=== PATIENT | male | born 1955 | race Caucasian/White ===

== ENCOUNTER 2017-02-16 09:17 | Emergency (ER) | payer MEDICARE, OTHER ==
[2017-02-16 09:23] VITALS: RESP 16
[2017-02-16] MEDS ORDERED: KETOROLAC 60 MG/2 ML VIAL IM STA (09:31)
--- NOTE | 2017-02-16 09:33 | ED ---
General Adult HPI - General Chief complaint: Back Pain/Injury Stated complaint: BACK PAIN Time Seen by Provider: 02/16/17 09:25 Source: patient, RN notes reviewed Mode of arrival: ambulatory Limitations: no limitations - History of Present Illness Initial comments: Patient is a 61-year-old male who presents emergency room today with chief complaint of right-sided back pain times one week. Does admit that he week ago with this pain. States is worse with certain movements. His examples of when he puts his hands into his pocket and goes pull his arm back down he feels pain right side just below the shoulder blade. Patient does admit that he tries to pull his pants off he again feels this pain. He states he does not feel it he is resting comfortably are not making the certain movements. Patient denies any other complaints or associated symptoms. Patient denies any recent fever, chills, shortness of breath, chest pain, back pain, abdominal pain, nausea or vomiting, numbness or tingling, dysuria or hematuria, constipation or diarrhea, headaches or visual changes, or any other complaints. - Related Data Home Medications Medication Instructions Recorded Confirmed OLANZapine 15 mg PO HS 04/07/15 02/16/17 Simvastatin [Zocor] 20 mg PO QAM 04/07/15 02/16/17 amLODIPine [Norvasc] 10 mg PO QAM 04/07/15 02/16/17 Sertraline HCl [Zoloft] 50 mg PO HS 06/14/16 02/16/17 Cyclobenzaprine [Flexeril] 10 mg PO HS 02/16/17 02/16/17 Lisinopril-Hctz 20-12.5 mg 1 tab PO DAILY 02/16/17 02/16/17 [Zestoretic 20-12.5] Previous Rx's Medication Instructions Recorded Baclofen 10 mg PO TID #20 tab 02/16/17 Ibuprofen [Motrin] 600 mg PO Q6HR PRN #40 day 02/16/17 Allergies Allergy/AdvReac Type Severity Reaction Status Date / Time No Known Allergies Allergy Verified 02/16/17 10:14 Review of Systems ROS Statement: Those systems with pertinent positive or pertinent negative responses have been documented in the HPI. ROS Other: All systems not noted in ROS Statement are negative. Past Medical History Past Medical History: COPD, Hyperlipidemia, Hypertension, Osteoarthritis (OA) History of Any Multi-Drug Resistant Organisms: None Reported Past Surgical History: Orthopedic Surgery Past Anesthesia/Blood Transfusion Reactions: No Reported Reaction Past Psychological History: Schizophrenia Smoking Status: Current every day smoker Past Alcohol Use History: Heavy Past Drug Use History: None Reported - Past Family History Mother Family Medical History: Deep Vein Thrombosis (DVT) General Exam - General Exam Comments Initial Comments: General: The patient is awake and alert, in no distress, and does not appear acutely ill. Eye: Pupils are equal, round and reactive to light, extra-ocular movements are intact. No nystagmus. There is normal conjunctiva bilaterally. No signs of icterus. Ears, nose, mouth and throat: There are moist mucous membranes and no oral lesions. Neck: The neck is supple, there is no tenderness or JVD. Cardiovascular: There is a regular rate and rhythm. No murmur, rub or gallop is appreciated. Respiratory: Lungs are clear to auscultation, respirations are non-labored, breath sounds are equal. No wheezes, stridor, rales, or rhonchi. Gastrointestinal: Soft, non-distended, non-tender abdomen without masses or organomegaly noted. There is no rebound or guarding present. No CVA tenderness. Bowel sounds are unremarkable. Musculoskeletal: Normal ROM. Normal appearance of cervical, thoracic, lumbar spine. No step-offs forms appreciated. No tenderness of the spinous processes. No tenderness to the ribs or posterior shoulder. Pain reproduced with certain movements of: Shoulders posteriorly. Strength 5/5. Sensation intact. Pulses equal bilaterally 2+. Neurological: A&O x 3. CN II-XII intact, There are no obvious motor or sensory deficits. Coordination appears grossly intact. Speech is normal. Skin: Skin is warm and dry and no rashes or lesions are noted. Psychiatric: Cooperative, appropriate mood & affect, normal judgment. Limitations: no limitations Course Vital Signs 02/16/17 09:19 Temperature 97.1 F L Pulse Rate 80 Respiratory 16 Rate Blood Pressure 129/83 O2 Sat by Pulse 98 Oximetry Medical Decision Making - Medical Decision Making Patient reexamined at this time shows no signs of stress. Does admit that he is feeling better after Toradol shot here in emergency room. His pain is reproduced with certain movements. His x-ray is unremarkable. Patient will be discharged home with anti-inflammatories and muscle relaxer. He is advised follow-up with his family doctor next 2 days. Advised return if any symptoms increase or worsen. Patient states understanding and is in agreement. Disposition Clinical Impression: Back pain Disposition: HOME SELF-CARE Condition: Good Instructions: Acute Low Back Pain (ED) Additional Instructions: Please use medication as discussed. Please follow-up with family doctor in the next 2 days. Please return to emergency room if the symptoms increase or worsen or for any other concerns. Prescriptions: Baclofen 10 mg PO TID #20 tab Ibuprofen [Motrin] 600 mg PO Q6HR PRN #40 day PRN Reason: Pain Time of Disposition: 10:47
--- NOTE | 2017-02-16 10:15 | XR ---
EXAMINATION TYPE: XR chest 2V DATE OF EXAM: 02/16/2017 10:10 AM COMPARISON: NONE TECHNIQUE: PA and lateral views submitted. HISTORY: Right scapular and back pain FINDINGS: The lungs are clear and there is no pneumothorax, pleural effusion, or focal pneumonia. Mild hypert rophic change of the spine. IMPRESSION: 1. No acute process.
[2017-02-16 11:06] VITALS: BP 132/88; PULSE 67; TEMP 97.2
== END 2017-02-16 11:05 | disposition home or self-care (01) ==
LOC: EC 09:17
DX: M54.9 Dorsalgia, unspecified (principal); M25.511 Pain in right shoulder; M25.512 Pain in left shoulder; I10 Essential (primary) hypertension; F17.200 Nicotine dependence, unspecified, uncomplicated; F20.9 Schizophrenia, unspecified; E78.5 Hyperlipidemia, unspecified; Z79.899 Other long term (current) drug therapy
CPT/HCPCS: 99283 ×2; 96372 ×2; 71020; J1885

== ENCOUNTER 2017-03-21 08:38 | Emergency (ER) | payer MEDICARE, OTHER ==
[2017-03-21] MEDS ORDERED: ORPHENADRINE 30 MG/ML 2 ML VIAL IM STA (09:05)
[2017-03-21] MEDS ORDERED: KETOROLAC 60 MG/2 ML VIAL IM STA (09:05)
--- NOTE | 2017-03-21 09:08 | ED ---
Back Pain HPI - General Chief Complaint: Back Pain/Injury Stated Complaint: UPPER NECK PAIN Time Seen by Provider: 03/21/17 08:50 Source: patient, RN notes reviewed Limitations: no limitations - History of Present Illness Initial Comments: This is a 61-year-old male who presents with complaints of right-sided back and shoulder pain. 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 He states the pain is severe and gets increased with point his right arm back and certain movements. He does deny any fevers chills nausea vomiting sweats cough or phlegm production. He does not recall any discrete injury. He points to his lower medial shoulder blade area on the right. He is right-hand dominant. MD Complaint: back pain, back injury - Related Data Home Medications Medication Instructions Recorded Confirmed OLANZapine 15 mg PO HS 04/07/15 03/21/17 Simvastatin [Zocor] 20 mg PO QAM 04/07/15 03/21/17 amLODIPine [Norvasc] 10 mg PO QAM 04/07/15 03/21/17 Sertraline HCl [Zoloft] 50 mg PO HS 06/14/16 03/21/17 Cyclobenzaprine [Flexeril] 10 mg PO HS 02/16/17 03/21/17 Lisinopril/Hydrochlorothiazide 1 tab PO DAILY 03/21/17 03/21/17 [Zestoretic 20-25 mg Tablet] Previous Rx's Medication Instructions Recorded Ibuprofen [Motrin] 600 mg PO Q6HR PRN #40 day 02/16/17 Cyclobenzaprine [Flexeril] 10 mg PO TID #14 tab 03/21/17 Ibuprofen [Motrin] 800 mg PO Q6HR PRN #20 tab 03/21/17 Allergies Allergy/AdvReac Type Severity Reaction Status Date / Time No Known Allergies Allergy Verified 03/21/17 08:57 Review of Systems ROS Statement: Those systems with pertinent positive or pertinent negative responses have been documented in the HPI. ROS Other: All systems not noted in ROS Statement are negative. Past Medical History Past Medical History: COPD, Hyperlipidemia, Hypertension, Osteoarthritis (OA) History of Any Multi-Drug Resistant Organisms: None Reported Past Surgical History: Orthopedic Surgery Past Anesthesia/Blood Transfusion Reactions: No Reported Reaction Past Psychological History: Schizophrenia Smoking Status: Current every day smoker Past Alcohol Use History: Heavy Past Drug Use History: None Reported - Past Family History Mother Family Medical History: Deep Vein Thrombosis (DVT) General Exam - General Exam Comments Initial Comments: This is a well-developed well-nourished awake alert oriented times 3 male Limitations: no limitations General appearance: alert, in no apparent distress Head exam: Present: atraumatic, normocephalic, normal inspection Eye exam: Present: normal appearance, PERRL, EOMI. Absent: scleral icterus, conjunctival injection, periorbital swelling ENT exam: Present: normal exam, mucous membranes moist Neck exam: Present: normal inspection. Absent: tenderness, meningismus, lymphadenopathy Respiratory exam: Present: normal lung sounds bilaterally. Absent: respiratory distress, wheezes, rales, rhonchi, stridor Cardiovascular Exam: Present: regular rate, normal rhythm, normal heart sounds. Absent: systolic murmur, diastolic murmur, rubs, gallop, clicks GI/Abdominal exam: Present: soft, normal bowel sounds. Absent: distended, tenderness, guarding, rebound, rigid Extremities exam: Present: normal inspection, full ROM, normal capillary refill. Absent: tenderness, pedal edema, joint swelling, calf tenderness Back exam: Present: normal inspection, tenderness (It is palpation of the medial and inferior aspects of the scapular musculature/rhomboids.), muscle spasm. Absent: CVA tenderness (R), CVA tenderness (L), paraspinal tenderness, vertebral tenderness, rash noted Neurological exam: Present: alert, oriented X3, CN II-XII intact Psychiatric exam: Present: normal affect, normal mood Skin exam: Present: warm, dry, intact, normal color. Absent: rash Course Vital Signs 03/21/17 08:40 Temperature 98.4 F Pulse Rate 78 Respiratory 20 Rate Blood Pressure 138/90 O2 Sat by Pulse 98 Oximetry - Reevaluation(s) Reevaluation #1: 03/21/17 09:09 We did discuss smoking in the risks and benefits of stopping. The total conversation with the patient lasted about 3.1 minutes. Medical Decision Making - Medical Decision Making Patient will be discharged after receiving IM shots. No further workup was currently indicated. He'll be placed on anti-inflammatories and muscle relaxers given 2 days off from work is follow-up with his doctor and return when necessary we did discuss stretching exercises and methods of alleviating discomfort. Disposition Clinical Impression: Mechanical back pain, Strain of rhomboid muscle Disposition: HOME SELF-CARE Condition: Good Instructions: Muscle Strain (ED), Musculoskeletal Pain (ED), How to Stop Smoking (ED) Prescriptions: Cyclobenzaprine [Flexeril] 10 mg PO TID #14 tab Ibuprofen [Motrin] 800 mg PO Q6HR PRN #20 tab PRN Reason: Pain
[2017-03-21 09:23] VITALS: BP 131/90; PULSE 80; RESP 16; TEMP 97.2
== END 2017-03-21 09:23 | disposition home or self-care (01) ==
LOC: EC 08:38
DX: S29.012A Strain of muscle and tendon of back wall of thorax, initial encounter (principal); F20.9 Schizophrenia, unspecified; E78.5 Hyperlipidemia, unspecified; I10 Essential (primary) hypertension; M19.90 Unspecified osteoarthritis, unspecified site; F17.200 Nicotine dependence, unspecified, uncomplicated; Z79.899 Other long term (current) drug therapy; X50.1XXA Overexertion from prolonged static or awkward postures, initial encounter
CPT/HCPCS: 99283; 96372 ×2; J2360; J1885

== ENCOUNTER → 2018-06-21 | Outpatient (CLI) | payer MEDICARE, OTHER ==
[2018-06-21 09:41] LABS: T4, Free (Free Thyroxine) 0.82 ng/dL (0.78-2.19)
--- NOTE | 2018-06-21 10:05 | FL ---
EXAMINATION TYPE: FL barium swallow DATE OF EXAM: 06/21/2018 COMPARISON: None HISTORY: Mass on focal cords dysphasia cough TECHNIQUE: A double contrast esophagram study is performed. FINDINGS: Esophagus dilates to normal caliber has normal contour to the gastroesophageal junction. Gastroesopha geal junction opens to normal caliber. Few tertiary contractions were observed during the study ezio tible with presbyesophagus. No reflux was evident. No persistent suspicious filling defects or extramural defects are evident. Fluoroscopy time 42 seconds Images: 21 IMPRESSIONS: 1. Presbyesophagus. 2. Esophagram is otherwise unremarkable.
--- NOTE | 2018-06-21 10:36 | CT ---
EXAMINATION TYPE: CT soft tissue neck w con DATE OF EXAM: 06/21/2018 COMPARISON: None HISTORY: 62-year-old male Dysphagia, hoarseness TECHNIQUE: Contiguous axial scanning of the soft tissues of the neck performed with IV Contrast, annel ent injected with 100 mL of Isovue 300. Coronal/sagittal reconstructions performed. CT DLP: 569.1 mGycm Automated exposure control for dose reduction was used. FINDINGS: Visualized intracranial structures and mastoid air cells show no gross abnormality. There is scattere d mild mucosal thickening throughout the ethmoid air cells and trace mucosal thickening posteriorly l eft maxillary sinus. Nasopharynx is clear. The oropharynx appears clear. There is asymmetric thickening along the left aryepiglottic fold, soft tissue effacing the lower left piriform sinus and mucosal cyst based soft tissue irregularity measuring 2.3 cm wide in the left sup raglottic region at the level of the false cords. Can't refer to axial images 45 through 39. The tracheal column is clear. Mild emphysematous change in the upper lungs. No cervical lymphadenopathy identified. Thyroid gland, submandibular glands, and parotid glands show no gross quality. Bones: Advanced discogenic degenerative change mid to lower cervical spine. Hypertrophic facet arthro laura with grade 1 anterolisthesis at C4-C5. IMPRESSION: 1. 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 FURTHER WORKUP RECOMMENDED. 2. NO CONCERNING LYMPHADENOPATHY IDENTIFIED.
--- NOTE | 2018-06-21 10:51 | XR ---
EXAMINATION TYPE: XR chest 2V DATE OF EXAM: 06/21/2018 COMPARISON: 02/16/2017 TECHNIQUE: PA and lateral views submitted. HISTORY: Cough FINDINGS: The lungs are clear and there is no pneumothorax, pleural effusion, or focal pneumonia. Deformity o f the rib cage noted. Hyperinflation suggests COPD. Hypertrophic and degenerative change of the spine noted. IMPRESSION: 1. No acute process.
== END | disposition home or self-care (01) ==
LOC: RADCTMAIN 08:11
PROVIDERS: ATTEND Otolaryngology
DX: R13.10 Dysphagia, unspecified (principal); R05 Cough; H92.02 Otalgia, left ear
CPT/HCPCS: 84439; 84443; 86376; 74220; 71046; 70491; 36415; Q9967

== ENCOUNTER 2018-07-27 07:34 | Day surgery (SDC) | payer MEDICARE, OTHER ==
[2018-07-25 10:57] VITALS: BMI 34.9
[~2018-07-27 07:34] MED LIST: DEXAMETHASONE SOD PHOSPHATE 10 MG/ML 1 ML VIAL IV ONE; DEXAMETHASONE SOD PHOSPHATE 4 MG/ML 1 ML VIAL IV ONE; FAMOTIDINE 20 MG/2 ML VIAL IV ONE; HYDROmorphone 0.5 MG/0.5 ML SYRINGE IVP PRN; ONDANSETRON 4 MG/2 ML VIAL IVP ONE; OXYMETAZOLINE 0.05% NASL SPRAY 1 SPRAY BOTTLE NASAL ONE; ceFAZolin IN SWFI 2 GM/20 ML SYRINGE IVP ONE
[2018-07-27] MEDS: LACTATED RINGERS 1,000 ML IV SCH ×2 (08:12→09:10)
[2018-07-27] MEDS ORDERED: LIDOCAINE 1% 20 ML VIAL (10MG/ML) FOR IV START INTRADERMA ONE (08:12)
[2018-07-27] MEDS ORDERED: LIDOCAINE 1%-EPI 1:100,000 30 ML VIAL SQ ONE (09:06)
[2018-07-27] MEDS ORDERED: PROPOFOL 10 MG/ML 20 ML VIAL IV ONE (09:12)
[2018-07-27] MEDS ORDERED: fentaNYL (PF) 50 MCG/ML 2 ML AMP ONE (09:12)
[2018-07-27] MEDS ORDERED: SUCCINYLCHOLINE CHLORIDE VIAL 200 MG/10 ML VIAL IV ONE (09:12)
[2018-07-27] MEDS ORDERED: LIDOCAINE 1% INJ 10MG/ML (20 ML MDV) ONE (09:12)
[2018-07-27] MEDS ORDERED: MIDAZOLAM 2 MG/2 ML VIAL ONE (09:12)
[2018-07-27 10:05] VITALS: TEMP 97.3
[2018-07-27 10:21] VITALS: RESP 16
--- NOTE | 2018-07-27 10:30 | P.OP ---
Date of Procedure: 07/27/18 Preoperative Diagnosis: 3 cm left supraglottic mass Postoperative Diagnosis: 3 cm left supraglottic mass Procedure(s) Performed: Direct microscopic laryngoscopy and biopsy Anesthesia: LINDSAYA Surgeon: Wally Hunter Estimated Blood Loss (ml): 5 Pathology: other (Left supraglottic mass) Condition: stable Disposition: PACU Indications for Procedure: This patient presented to the office and during the workup was found to have a large 3 cm left supraglottic mass. This mass is emanating from the left false cords through the arytenoid into the area epiglottic fold. Is an ulcerative- type mass. Computed tomography scan evaluation did not reveal any pathologic lymphadenopathy. Operative Findings: 3 cm left supraglottic mass Description of Procedure: This patient was taken to the operative room and placed in the supine position. A general inhalation anesthetic was administered the patient by mask and subsequently intubated with a cuffed endotracheal tube by the department of anesthesia with a functioning IV line in place. The patient was monitored throughout the entire case by the department of anesthesia. A Jako laryngoscope was placed in the patient's mouth with care to avoid any trauma to the lips or gums. The entire oropharynx and hypopharynx was evaluated including the base of tongue vallecula piriform sinus epiglottic folds [place] cords base of tongue etc. This scope was placed on suspension on a Lewy and microscopic evaluation was obtained. The left supraglottic area showed an approximately 3 cm ulcerative mass that extended from the left false cord through the arytenoid into the aryepiglottic fold. Biopsies were obtained and hemostasis was spontaneous. The patient tolerated this well and follow-up will be in the office in 1 week. This mass is suspicious for malignancy.
[2018-07-27 11:31] VITALS: BP 146/96; PULSE 80
== END 2018-07-27 11:44 | disposition home or self-care (01) ==
LOC: OR 07:34
PROVIDERS: ATTEND Otolaryngology
DX: C32.1 Malignant neoplasm of supraglottis (principal); I10 Essential (primary) hypertension; E78.5 Hyperlipidemia, unspecified; J44.9 Chronic obstructive pulmonary disease, unspecified; Z79.899 Other long term (current) drug therapy; Z72.0 Tobacco use
CPT/HCPCS: 88305; 31536; J2250; J0330; J1100; J2405; J2001; J3010; J2704; J0690

== ENCOUNTER → 2018-08-05 | Outpatient (CLI) | payer MEDICARE, OTHER ==
--- NOTE | 2018-08-06 12:48 | PE ---
EXAMINATION TYPE: PET CT fusion skull to thigh DATE OF EXAM: 08/05/2018 COMPARISON: CT soft tissue neck 06/21/2018 Prior PET/CT: None HISTORY: Head and neck cancer, cancer of larynx TECHNIQUE: Following the intravenous administration of 13.58 mCi of F-18 FDG, whole body images are performed from the skull base to the midthigh. Images are reviewed on the computer in the coronal, a xial, and sagittal planes. Reconstructed rotating images are created on independent workstation and reviewed on the computer. A localization and attenuation correction CT is performed in conjunction with the PET scan. DLP: 463.46 and 81.24 mGycm SCAN: Initial Blood glucose: 100 mg/dL Average Mediastinum SUV: 1.14 Average Liver SUV: 1.61 FINDINGS: NECK: Posterior lateral to the left portion of the larynx is a focal area of increased radiotracer a ccumulation. This is measured at 9.46 SUV compatible with neoplasm. PET image 56. THORAX: No abnormal uptake ABDOMEN: No abnormal uptake PELVIS: No abnormal uptake OSSEOUS STRUCTURES: No abnormal uptake. LOCALIZATION CT: Ascending thoracic aorta is aneurysmal estimated 4.6 cm. The main pulmonary artery t he bifurcation is 2.6 cm. Mild coronary artery calcification is present. Vascular calcifications with in the aorta. Mild prostate prominence is present. No suspicious osseous abnormality is evident. Dedicated head and neck PET/CT is performed. The focal uptake at the posterior lateral left larynx is again identified. On the neck images this measures 16.84 SUV. No additional abnormal areas of uptake are evident within the neck. COMPARISON: None IMPRESSION: 1. Solitary focus of radiotracer accumulation in the posterior left larynx compatible with the patien t's laryngeal carcinoma. 2. No suspicious metastatic lesions. 3. Aneurysmal dilatation of the ascending thoracic aorta measuring 4.6 cm of the main pulmonary arter y level.
== END | disposition home or self-care (01) ==
LOC: RADPETMAIN 16:17
PROVIDERS: ATTEND Internal Medicine Hematology & Oncology
DX: C32.8 Malignant neoplasm of overlapping sites of larynx (principal); I71.2 Thoracic aortic aneurysm, without rupture
CPT/HCPCS: 78815; A9552

== ENCOUNTER 2018-10-01 10:02 | Inpatient (IN) | payer MEDICARE, OTHER ==
[2018-10-01] MEDS ORDERED: SODIUM CHLORIDE 0.9% 2,000 ML IV ONE (10:22)
[2018-10-01] MEDS ORDERED: KETOROLAC 60 MG/2 ML VIAL IVP STA (10:24)
--- NOTE | 2018-10-01 10:24 | ED ---
General Adult HPI - General Chief complaint: Recheck/Abnormal Lab/Rx Stated complaint: general discomfort Time Seen by Provider: 10/01/18 10:02 Source: patient, RN notes reviewed Mode of arrival: EMS Limitations: no limitations - History of Present Illness Initial comments: This is a 62-year-old male who presents emergency department with past medical history significant for throat cancer. Patient is unable to eat any food because of his throat pain. Patient states he drinks a little bit but not anywhere near enough. Patient states he's been unable to sleep lately because he feels very anxious and he thinks a passout per patient states he gets very lightheaded and he thinks is coming close to passing out. Patient states he's had no chest pain or shortness of breath. Patient denies abdominal pain patient denies nausea vomiting diarrhea. Patient states only pain he had his in his throat is been chronic. Patient denies any fever chills. Patient denies any headache patient denies numbness or focal weakness. Patient has generalized weakness. Patient denies any recent injury or falls. - Related Data Home Medications Medication Instructions Recorded Confirmed OLANZapine 15 mg PO HS 04/07/15 10/01/18 Simvastatin [Zocor] 20 mg PO HS 04/07/15 10/01/18 Sertraline HCl [Zoloft] 50 mg PO HS 06/14/16 10/01/18 Lisinopril/Hydrochlorothiazide 1 tab PO HS 03/21/17 10/01/18 [Zestoretic 20-25 mg Tablet] Docusate [Colace] 100 mg PO DAILY 10/01/18 10/01/18 fentaNYL 50MCG/HR PATCH [Duragesic 50 mcg TOPICAL Q72H 10/01/18 10/01/18 50MCG/HR] Previous Rx's Medication Instructions Recorded HYDROcodone/APAP 5-325MG [[place] 1 - 2 tab PO Q4-6H PRN 3 Days #36 07/27/18 5-325] tab Allergies Allergy/AdvReac Type Severity Reaction Status Date / Time No Known Allergies Allergy Verified 10/01/18 14:05 Review of Systems ROS Statement: Those systems with pertinent positive or pertinent negative responses have been documented in the HPI. ROS Other: All systems not noted in ROS Statement are negative. Past Medical History Past Medical History: Cancer, COPD, Hyperlipidemia, Hypertension, Osteoarthritis (OA) History of Any Multi-Drug Resistant Organisms: None Reported Past Surgical History: Orthopedic Surgery Past Anesthesia/Blood Transfusion Reactions: No Reported Reaction Past Psychological History: Schizophrenia Smoking Status: Current some day smoker Past Alcohol Use History: Rare Past Drug Use History: None Reported - Past Family History Mother Family Medical History: Deep Vein Thrombosis (DVT) General Exam - General Exam Comments Initial Comments: GENERAL: Patient is well-developed and well-nourished. Patient is nontoxic and well- hydrated and is in mild distress. ENT: Neck is soft and supple. No significant lymphadenopathy is noted. Oropharynx is clear. Dry mucous membranes. Neck has full range of motion without eliciting any pain. EYES: The sclera were anicteric and conjunctiva were pink and moist. Extraocular movements were intact and pupils were equal round and reactive to light. Eyelids were unremarkable. PULMONARY: Unlabored respirations. Good breath sounds bilaterally. No audible rales rhonchi or wheezing was noted. CARDIOVASCULAR: Patient is tachycardic ABDOMEN: Soft and nontender with normal bowel sounds. No palpable organomegaly was noted. There is no palpable pulsatile mass. SKIN: Skin is clear with no lesions or rashes and otherwise unremarkable. NEUROLOGIC: Patient is alert and oriented x3. Cranial nerves II through XII are grossly intact. Motor and sensory are also intact. Normal speech, volume and content. Symmetrical smile. MUSCULOSKELETAL: Normal extremities with adequate strength and full range of motion. No lower extremity swelling or edema. No calf tenderness. LYMPHATICS: No significant lymphadenopathy is noted PSYCHIATRIC: Normal psychiatric evaluation. Normal interpersonal interactions appears functionally intact in deals appropriately with others. No signs of depression. No signs of anxiety. Limitations: no limitations Course Vital Signs 10/01/18 10/01/18 10/01/18 10:06 10:23 10:30 Temperature 99.6 F Pulse Rate 130 H 129 H Pulse Rate [ 130 H Retail Performance Specialist ] Respiratory 18 18 Rate Blood Pressure 62/42 O2 Sat by Pulse 85 L 90 L Oximetry 10/01/18 10/01/18 10/01/18 11:00 11:30 12:00 Temperature Pulse Rate 121 H 107 H Pulse Rate [ Retail Performance Specialist ] Respiratory 17 18 Rate Blood Pressure 67/50 86/65 73/43 O2 Sat by Pulse 92 L 94 L Oximetry 11/04/18 11/04/18 11/04/18 12:41 13:00 13:30 Temperature Pulse Rate 105 H 102 H Pulse Rate [ Retail Performance Specialist ] Respiratory 18 22 18 Rate Blood Pressure 83/55 83/55 80/54 O2 Sat by Pulse 94 L 96 97 Oximetry 10/01/18 10/01/18 10/01/18 13:50 14:10 14:40 Temperature Pulse Rate 105 H 94 91 Pulse Rate [ Retail Performance Specialist ] Respiratory 15 22 22 Rate Blood Pressure 118/65 95/63 93/56 O2 Sat by Pulse 99 96 98 Oximetry 10/01/18 15:05 Temperature 98.8 F Pulse Rate 90 Pulse Rate [ Retail Performance Specialist ] Respiratory 18 Rate Blood Pressure 92/54 O2 Sat by Pulse 98 Oximetry Medical Decision Making - Medical Decision Making EKG shows sinus tachycardia at 132 bpm CA interval is on a 44 tresses 88 QT interval is 276 QTC is 408 per patient's EKG shows no ST segment elevation or depression or T wave abnormalities are noted. Patient 2 L of fluid his blood pressure came up to the 80 systolic he was feeling slightly better. Labs indicated he had acute renal failure. I spoke with the depression agreed to admit him I admitted the patient I wrote admitting orders I consulted nephrology I also ordered a renal ultrasound and I gave the patient a third liter of fluid. - Lab Data Result diagrams: 10/04/18 06:10 10/05/18 06:00 Lab Results 10/01/18 10/01/18 10/01/18 Range/Units 10:42 10:42 10:42 WBC 3.6 L (3.8-10.6) k/uL RBC 3.90 L (4.30-5.90) m/uL Hgb 12.4 L (13.0-17.5) gm/dL Hct 35.9 L (39.0-53.0) % MCV 91.9 (80.0-100.0) fL MCH 31.7 (25.0-35.0) pg MCHC 34.5 (31.0-37.0) g/dL RDW 14.2 (11.5-15.5) % Plt Count 303 (150-450) k/uL Neutrophils % (Manual) 65 % Band Neutrophils % 17 % Lymphocytes % (Manual) 8 % Monocytes % (Manual) 6 % Metamyelocytes % 2 % Myelocytes % 3 % Neutrophils # (Manual) 2.90 (1.3-7.7) k/uL Lymphocytes # (Manual) 0.29 L (1.0-4.8) k/uL Monocytes # (Manual) 0.22 (0-1.0) k/uL Metamyelocytes # (Man) 0.07 H (0) k/uL Myelocytes # (Manual) 0.11 H (0) k/uL Nucleated RBCs 0 (0-0) /100 WBC Manual Slide Review Performed Toxic Granulation Present PT (9.0-12.0) sec INR (<1.2) APTT (22.0-30.0) sec Sodium 134 L (137-145) mmol/L Potassium 4.5 (3.5-5.1) mmol/L Chloride 96 L (98-107) mmol/L Carbon Dioxide 17 L (22-30) mmol/L Anion Gap 21 mmol/L BUN 161 H* (9-20) mg/dL Creatinine 6.81 H (0.66-1.25) mg/dL Est GFR (CKD-EPI)AfAm 9 (>60 ml/min/1.73 sqM) Est GFR (CKD-EPI)NonAf 8 (>60 ml/min/1.73 sqM) Glucose 143 H (74-99) mg/dL Plasma Lactic Acid Ramin (0.7-2.0) mmol/L Calcium 9.5 (8.4-10.2) mg/dL Total Bilirubin 0.6 (0.2-1.3) mg/dL AST 32 (17-59) U/L ALT 74 H (21-72) U/L Alkaline Phosphatase 89 (38-126) U/L Total Creatine Kinase 119 (55-170) U/L CK-MB (CK-2) 2.2 (0.0-2.4) ng/mL CK-MB (CK-2) Rel Index 1.8 Troponin I 0.035 H* (0.000-0.034) ng/mL Total Protein 6.3 (6.3-8.2) g/dL Albumin 3.4 L (3.5-5.0) g/dL 10/01/18 10/01/18 Range/Units 10:42 10:42 WBC (3.8-10.6) k/uL RBC (4.30-5.90) m/uL Hgb (13.0-17.5) gm/dL Hct (39.0-53.0) % MCV (80.0-100.0) fL MCH (25.0-35.0) pg MCHC (31.0-37.0) g/dL RDW (11.5-15.5) % Plt Count (150-450) k/uL Neutrophils % (Manual) % Band Neutrophils % % Lymphocytes % (Manual) % Monocytes % (Manual) % Metamyelocytes % % Myelocytes % % Neutrophils # (Manual) (1.3-7.7) k/uL Lymphocytes # (Manual) (1.0-4.8) k/uL Monocytes # (Manual) (0-1.0) k/uL Metamyelocytes # (Man) (0) k/uL Myelocytes # (Manual) (0) k/uL Nucleated RBCs (0-0) /100 WBC Manual Slide Review Toxic Granulation PT 10.0 (9.0-12.0) sec INR 1.0 (<1.2) APTT 22.5 (22.0-30.0) sec Sodium (137-145) mmol/L Potassium (3.5-5.1) mmol/L Chloride (98-107) mmol/L Carbon Dioxide (22-30) mmol/L Anion Gap mmol/L BUN (9-20) mg/dL Creatinine (0.66-1.25) mg/dL Est GFR (CKD-EPI)AfAm (>60 ml/min/1.73 sqM) Est GFR (CKD-EPI)NonAf (>60 ml/min/1.73 sqM) Glucose (74-99) mg/dL Plasma Lactic Acid Ramin 2.0 (0.7-2.0) mmol/L Calcium (8.4-10.2) mg/dL Total Bilirubin (0.2-1.3) mg/dL AST (17-59) U/L ALT (21-72) U/L Alkaline Phosphatase (38-126) U/L Total Creatine Kinase (55-170) U/L CK-MB (CK-2) (0.0-2.4) ng/mL CK-MB (CK-2) Rel Index Troponin I (0.000-0.034) ng/mL Total Protein (6.3-8.2) g/dL Albumin (3.5-5.0) g/dL Disposition Clinical Impression: Acute renal failure, Near syncope Disposition: ADMITTED IP TO THIS HOSP Time of Disposition: 12:05
[2018-10-01] MEDS ORDERED: ACETAMINOPHEN IV (For NPO) 1,000 MG in EMPTY BAG 1 BAG IVPB STA (10:32)
[2018-10-01 10:58] LABS: HCT 35.9 % (39.0-53.0); HGB 12.4 gm/dL (13.0-17.5); MCH 31.7 pg (25.0-35.0); MCHC 34.5 g/dL (31.0-37.0); MCV 91.9 fL (80.0-100.0); Mean Platelet Volume 7.2; Platelet Count 303 k/uL (150-450); RDW 14.2 % (11.5-15.5); WBC 3.6 k/uL (3.8-10.6)
[2018-10-01 11:07] LABS: Partial Thromboplastin Time 22.5 sec (22.0-30.0)
[2018-10-01 11:08] LABS: Albumin 3.4 g/dL (3.5-5.0); Calcium 9.5 mg/dL (8.4-10.2); Potassium 4.5 mmol/L (3.5-5.1); Total Bilirubin 0.6 mg/dL (0.2-1.3); Total Protein 6.3 g/dL (6.3-8.2)
[2018-10-01 11:11] LABS: Band Neutrophils % 17 %; Lymphocytes # (M) 0.29 k/uL (1.0-4.8); Metamyelocytes # (M) 0.07 k/uL (0); Metamyelocytes % 2 %; Monocytes # (M) 0.22 k/uL (0-1.0); Myelocytes # (M) 0.11 k/uL (0); Myelocytes % 3 %; Neutrophils % (M) 65 %; Nucleated Red Blood Cells 0 /100 WBC (0-0); Total Cells Counted 200
[2018-10-01 11:12] LABS: Toxic Granulation Present
--- NOTE | 2018-10-01 11:20 | XR ---
EXAMINATION TYPE: XR chest 2V DATE OF EXAM: 10/01/2018 HISTORY: Fever. REFERENCE: Previous study dated 02/16/2017. FINDINGS: There is a patchy left upper lobe infiltrate. The heart is not enlarged. The right lung is clear. Pleural spaces are clear. IMPRESSION: FINDINGS CONSISTENT WITH LEFT UPPER LOBE PNEUMONIA.
[2018-10-01 11:35] LABS: Creatine Kinase MB 2.2 ng/mL (0.0-2.4)
[2018-10-01 11:53] LABS: Troponin I 0.035 ng/mL (0.000-0.034)
[2018-10-01] MEDS ORDERED: methylPREDNISolone SOD SUCCI 125 MG/2 ML VIAL IV STA (11:58)
[2018-10-01] MEDS ORDERED: METOCLOPRAMIDE 5 MG/ML 2 ML VIAL IVP STA (11:59)
[2018-10-01] MEDS ORDERED: SODIUM CHLORIDE 0.9% 1,000 ML IV ONE ×2 (12:03→12:05)
[2018-10-01] MEDS ORDERED: SODIUM CHLORIDE 0.9% 1,000 ML IV STA (13:09)
[2018-10-01 13:34] LABS: Appearance,Urine Cloudy (Clear); Bilirubin,Urine Negative (Negative); Blood,Urine Negative (Negative); Color,Urine Dark Brown; Glucose,Urine (UA) Trace (Negative); Hyaline Casts,Urine 74 /lpf (0-2); Ketones,Urine Negative (Negative); Leukocyte Esterase,Urine Negative (Negative); Mucus,Urine Rare /hpf; Nitrite,Urine Negative (Negative); Protein,Urine Trace (Negative); Specific Gravity,Urine 1.017 (1.001-1.035); Squamous Epithelial Cell,Urine 2 /hpf (0-4); Urobilinogen,Urine <2.0 mg/dL (<2.0)
[2018-10-01] MEDS ORDERED: HYDROmorphone 1 MG/ML 1 ML SYRINGE IVP STA (13:54)
--- NOTE | 2018-10-01 14:00 | US ---
EXAMINATION TYPE: US renals and bladder DATE OF EXAM: 10/01/2018 COMPARISON: NONE CLINICAL HISTORY: Pain. back pain EXAM MEASUREMENTS: Right Kidney: 12.0 x 5.5 x 6.0 cm Left Kidney: 12.8 x 6.2 x 6.0 cm Right Kidney: 3.3cm simple appearing cyst superior pole Left Kidney: No hydronephrosis or masses seen Bladder: wnl Bilateral Jets seen: Yes IMPRESSION: 1. NO EVIDENCE OF HYDRONEPHROSIS. 2. SIMPLE APPEARING RIGHT UPPER POLE RENAL CYST.
[2018-10-01] MEDS: ENOXAPARIN 40 MG/0.4 ML SYRINGE SQ SCH (19:30)
[2018-10-01] MEDS: LIDOCAINE VISCOUS 2% 15 ML CUP MUCOUS MEM PRN (21:34)
[2018-10-01] MEDS: SERTRALINE 50 MG TAB PO SCH (21:51)
[2018-10-01] MEDS: OLANZapine 5 MG TAB PO SCH (21:51)
[2018-10-01] MEDS: ATORVASTATIN 10 MG TAB PO SCH (21:51)
[2018-10-01] MEDS ORDERED: HYDROcodone/APAP 5-325MG 1 EACH TAB PO PRN (23:29)
[2018-10-02] MEDS: LIDOCAINE VISCOUS 2% 15 ML CUP MUCOUS MEM PRN ×3 (02:02→15:13)
[2018-10-02 06:38] LABS: Calcium 8.7 mg/dL (8.4-10.2); Potassium 3.3 mmol/L (3.5-5.1)
[2018-10-02 06:45] LABS: HCT 31.4 % (39.0-53.0); HGB 10.4 gm/dL (13.0-17.5); MCH 31.7 pg (25.0-35.0); MCHC 33.2 g/dL (31.0-37.0); MCV 95.5 fL (80.0-100.0); Mean Platelet Volume 7.3; Platelet Count 287 k/uL (150-450); RBC 3.29 m/uL (4.30-5.90); RDW 14.6 % (11.5-15.5); WBC 5.9 k/uL (3.8-10.6)
[2018-10-02 07:07] LABS: Band Neutrophils % 48 %; Lymphocytes # (M) 0.35 k/uL (1.0-4.8); Metamyelocytes # (M) 0.06 k/uL (0); Metamyelocytes % 1 %; Monocytes # (M) 0.41 k/uL (0-1.0); Myelocytes # (M) 0.12 k/uL (0); Myelocytes % 2 %; Neutrophils % (M) 36 %; Nucleated Red Blood Cells 0 /100 WBC (0-0); Total Cells Counted 200
[2018-10-02] MEDS: ENOXAPARIN 40 MG/0.4 ML SYRINGE SQ SCH (08:28)
--- NOTE | 2018-10-02 17:40 | CONS ---
CONSULTATION REASON FOR CONSULT: Renal failure. HISTORY OF PRESENT ILLNESS: Patient is a 62-year-old male who has a previous history of throat cancer, hyperlipidemia and hypertension. Patient was admitted to the hospital with complaints of weakness, and he also stated he had difficulty eating and had significant pain in his throat. He had been lightheaded as well. Serum creatinine was noted to be 6.8 mg/dL on admission with a BUN of 161. Potassium was 4.5. Patient is maintained on IV hydration. He has received fluid boluses and his creatinine is down to 2.93. Patient also stated that he had decreased urine output, which seems to have improved now. Chest x-ray shows left upper lobe pneumonia and patient is maintained on antibiotics. PAST MEDICAL HISTORY: Significant for: 1. Throat cancer. 2. Hypertension. 3. Dyslipidemia. 4. Depression. 5. Schizophrenia. 6. Osteoarthritis. PAST SURGICAL HISTORY: SOCIAL HISTORY: Positive for smoking. MEDICATIONS: Medications at home prior to admission included: 1. Zestoretic. 2. Colace. 3. Zoloft. 4. Zocor. 5. Duragesic patch. REVIEW OF SYSTEMS: As per HPI. Other systems negative. PHYSICAL EXAMINATION: Patient is comfortable, awake. He is not in any acute distress. Alert and oriented x3. Blood pressure is 115/66, heart rate 90 per minute. He is afebrile. EXAMINATION OF THE HEART: S1, S2. EXAMINATION OF LUNGS: Bilateral breath sounds are heard. ABDOMEN: Soft, non-tender. Examination of lower extremities shows no significant edema. CADD MANAGER exam is grossly intact. Patient's voice is hoarse. LABS: Sodium 141, potassium 3.3, BUN 129, serum creatinine 2.93, hemoglobin 10.4 g/dL. UA shows trace protein, trace glucose. No significant WBCs noted. Chest x-ray shows left upper lobe pneumonia. ASSESSMENT: 1. Acute kidney injury, mostly prerenal, associated with hypotension, hypoperfusion and hypovolemia. Continue to hold off on the SUSY inhibitors and diuretics and continue with IV fluids. 2. Hypokalemia, which will be replaced. 3. History of throat cancer. 4. Dyslipidemia. 5. History of hypertension. Blood pressure has been low this admission. Continue to hold off on antihypertensive medications. 6. Left upper lobe pneumonia noted on chest x-ray. Antibiotics as per primary service. PLAN: Continue IV fluids. Hold off on SUSY inhibitors. Repeat labs in a.m. Thank you for this consultation. We will continue to follow the patient with you during his hospitalization. ROBERT / ALDAIRN: [id number] /
[2018-10-02] MEDS: SERTRALINE 50 MG TAB PO SCH (19:35)
[2018-10-02] MEDS: OLANZapine 5 MG TAB PO SCH (19:35)
[2018-10-02] MEDS: ATORVASTATIN 10 MG TAB PO SCH (19:35)
[2018-10-02] MEDS: IPRATROPIUM-ALBUTEROL 3 ML NEB INHALATION SCH (20:44)
[2018-10-02] MEDS: LACTATED RINGERS 1,000 ML IV SCH (20:58)
[2018-10-02] MEDS: MORPHINE SULFATE 2 MG/ML SYRINGE IVP PRN (21:01)
--- NOTE | 2018-10-02 21:10 | HP ---
HISTORY AND PHYSICAL Repeat H&P DATE OF ADMISSION: 10/01/18 DATE OF SERVICE: 10/02/18 PRESENT COMPLAINT: Weak and tired. HISTORY OF PRESENTING COMPLAINT: I saw this patient this morning. Cannot find my original H and P. I did call candy mixer. I am dictating a repeat H and P on this patient. This is a patient who is 62 years of age. Follows with Dr. Gifford. Has a diagnosis of throat cancer that has been followed by Dr. Orourke and Dr. Hunter. The patient has been getting chemotherapy and radiation treatment. Chronic stable medical conditions include COPD, hyperlipidemia, hypertension, osteoarthritis, and schizophrenia. The patient for 4 weeks has got a poor oral intake. Barely able to keep anything down. A lot of saliva secretions. Also got dysphagia, even having trouble with pills and saliva. The patient is becoming more and more weak and tired, rundown, getting dizzy lightheaded. The patient presented with acute renal failure with a BUN of 161 and creatinine 6.81. The patient was started on IV fluids, admitted for the same. The patient has been making some urine. Does feel tired, run down. No fever. No chills. REVIEW OF SYSTEMS: CONSTITUTIONAL: Weak, tired. HEENT: As above. RESPIRATORY: Some cough. CARDIOVASCULAR: None. GASTROINTESTINAL: None. GENITOURINARY: None. MUSCULOSKELETAL: Arthritic pain in many joints. DERMATOLOGICAL, HEMATOLOGIC, LYMPHATIC: None. PSYCHIATRY: Anxious. NEUROLOGICAL: None. PAST MEDICAL HISTORY: Throat cancer exact type unknown, COPD, hypertension, hyperlipidemia, osteoarthritis, schizophrenia. PAST SURGICAL HISTORY: Orthopedic surgery. SOCIAL HISTORY: . Smoked for about 30 years, a pack a day stopped 3 weeks ago. Did do alcohol in the past. 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 FAMILY HISTORY: DVT. HOME MEDICATIONS: 1. Fentanyl patch 50 mcg every 72 hours. 2. Zocor 20 mg at bedtime. 3. Zoloft 50 mg q.h.s. 4. Olanzapine 50 mg p.o. at bedtime. 5. Zestoretic 20/25 1 tablet p.o. q.h.s. 6. [place] 5, 1-2 tablets q.4 p.r.n. 7. Colace 100 mg p.o. daily. ALLERGIES: None. PHYSICAL EXAMINATION: Vital signs on presentation: Temperature 99.6, pulse 130, respiration 18, blood pressure 62/42, pulse ox 85 percent on room air. GENERAL APPEARANCE: Average build lying in bed, tired-appearing. EYES: Pupils equal. Conjunctivae normal. HEENT: External appearance of nose and ears. Oral cavity normal. NECK: JVD unable to assess. Mass not palpable. RESPIRATORY: Effort increased. Lungs, decreased breath sounds. CARDIOVASCULAR: 1st and 2nd sounds, no edema. ABDOMEN: Soft, nontender. Liver and spleen not palpable. LYMPHATIC: No lymph node palpable in neck or axillae, PSYCHIATRY: Alert and oriented x3. Mood and affect normal. NEUROLOGICAL: Pupils equal. Cranial nerves grossly intact. Power and sensation grossly intact. INVESTIGATIONS: Labs on presentation, white count 3.6, hemoglobin 12.4, repeat hemoglobin is 10.4 after hydration. Potassium 4.5, bicarb 17, BUN 161, creatinine 6.1, repeat was 129 and 2.93. Troponin 0.035, albumin 3.4. EKG tracing personally reviewed by me shows sinus tachycardia. Chest x-ray film, personally reviewed by me, shows some scattered infiltrates. Renal ultrasound, no evidence of chronic kidney disease. ASSESSMENT: 1. Acute severe renal failure, with acute kidney injury likely prerenal from poor oral intake. Also patient is on SUSY inhibitor and diuretics, rather symptomatic. 2. Throat cancer type unknown. Patient is getting chemo and radiation treatment. 3. Odynophagia acute from throat cancer. Possible aspiration pneumonitis probably chemical. There is no evidence of any fever, hence, we will hold off any treatment for the same. 4. Chronic obstructive pulmonary disease in an ex-smoker. 5. Essential hypertension. 6. Hyperlipidemia. 7. Hypotensive shock on presentation with severe hypotension, tachycardia. 8. Primary osteoarthritis multiple joints bilateral. 9. Chronic schizophrenia. PLAN: Patient is started on IV fluids. Will also add bicarb to the fluids. Since the patient is having a lot of trouble swallowing and possible aspirating, we will hold off the pills. Speech was earlier consulted. Nephrology was consulted. We will also consult Dr. Hunter and Dr. Orourke. The patient has been losing weight and going into renal failure from poor oral intake. May be some time before recovery. I did speak at length with the patient about a PEG tube to which she is agreeable earlier. I earlier spoke to Kacy from oncology team to see if they are okay with the same. For the patient's increased secretions, will add the use of Robinul. We will check with pharmacy to dose. I will use a scopolamine patch and also viscous lidocaine topically. Also use morphine for pain. The patient is not able to tolerate anything by mouth. Care was discussed with the patient. We will also add bronchodilators. MMODL / IJN: [id number] /
[2018-10-03] MEDS: MORPHINE SULFATE 2 MG/ML SYRINGE IVP PRN ×5 (04:47→21:03)
[2018-10-03] MEDS: LACTATED RINGERS 1,000 ML IV SCH ×3 (04:50→21:07)
[2018-10-03 06:32] LABS: Calcium 9.3 mg/dL (8.4-10.2); Potassium 3.5 mmol/L (3.5-5.1)
[2018-10-03] MEDS: IPRATROPIUM-ALBUTEROL 3 ML NEB INHALATION SCH ×4 (07:43→19:14)
[2018-10-03] MEDS: ENOXAPARIN 40 MG/0.4 ML SYRINGE SQ SCH (08:35)
[2018-10-03] MEDS ORDERED: ENOXAPARIN 30 MG/0.3 ML SYRINGE SQ SCH (09:00)
--- NOTE | 2018-10-03 12:14 | P.GSCN ---
History of Present Illness Consult date: 10/03/18 Reason for Consult: Placement of a PEG tube History of present illness: 62-year-old male being seen at the request of the attending for surgical eval for placement of a PEG tube for nutritional support. Patient stated he was diagnosed in June 2018 throat cancer currently receiving radiation and chemotherapy. Patient stated for the past several weeks has not been able to eat or drink or keep anything down feels weak has been experiencing episodes of dizziness lightheadedness patient states he's not able to eat or drink because he has severe pain in his throat did note a swallowing eval was done October 02 swallowing incomplete laryngeal elevated inability to manage oral secretions moderately reduced laryngeal excursion with wet breath sounds following a trial of thin liquid. Patient reportedly was experiencing severe throat pain with swallowing speech therapy recommended consideration of alternative methods is patient is unable to sustain adequate nutrition and hydration. Also an increased risk of aspiration Patient is verbalizing interested in the PEG tube being placed for nutritional support Review of Systems Essentially unremarkable except as mentioned in the present illness Past Medical History Past Medical History: Cancer, COPD, Hyperlipidemia, Hypertension, Osteoarthritis (OA) Additional Past Medical History / Comment(s): throat cancer History of Any Multi-Drug Resistant Organisms: None Reported Past Surgical History: Orthopedic Surgery Past Anesthesia/Blood Transfusion Reactions: No Reported Reaction Past Psychological History: Schizophrenia Smoking Status: Former smoker Past Alcohol Use History: None Reported Past Drug Use History: None Reported - Past Family History Mother Family Medical History: Deep Vein Thrombosis (DVT) Medications and Allergies Home Medications Medication Instructions Recorded Confirmed Type OLANZapine 15 mg PO HS 04/07/15 10/01/18 History Simvastatin [Zocor] 20 mg PO HS 04/07/15 10/01/18 History Sertraline HCl [Zoloft] 50 mg PO HS 06/14/16 10/01/18 History Lisinopril/Hydrochlorothiazide 1 tab PO HS 03/21/17 10/01/18 History [Zestoretic 20-25 mg Tablet] HYDROcodone/APAP 5-325MG [[place] 1 - 2 tab PO Q4-6H PRN 3 Days #36 07/27/1810/01 Rx 5-325] tab Docusate [Colace] 100 mg PO DAILY 10/01/18 10/01/18 History fentaNYL 50MCG/HR PATCH [Duragesic 50 mcg TOPICAL Q72H 10/01/18 10/01/18 History 50MCG/HR] Allergies Allergy/AdvReac Type Severity Reaction Status Date / Time No Known Allergies Allergy Verified 10/01/18 14:05 Surgical - Exam Vital Signs Temp Pulse Resp BP Pulse Ox 99.6 F 130 H 18 62/42 85 L 10/01/18 10:06 10/01/18 10:06 10/01/18 10:06 10/01/18 10:06 10/01/18 10:06 Physical exam 62-year-old male thin resting in bed speaks in forced whisper appears in no acute distress oriented 3 Lungs diminished bases otherwise adequate air movement sats 95% on room air no cough noted Heart S1-S2 audible regular denying chest pain Abdomen soft nondistended nontender bowel tones present reports no nausea reports difficulty in swallowing due to severe throat pain no frequent stooling Extremities no edema Results - Labs 10/02/18 05:39 10/03/18 05:53 Abnormal Lab Results - Last 24 Hours (Table) 10/03/18 Range/Units 05:53 Chloride 112 H (98-107) mmol/L BUN 77 H (9-20) mg/dL Glucose 100 H (74-99) mg/dL Microbiology - Last 24 Hours (Table) 10/01/18 12:54 Urine Culture - Final Urine,Voided 10/01/18 10:42 Blood Culture - Preliminary Blood No Growth after 24 hours Diabetes panel 10/03/18 Range/Units 05:53 Sodium 145 (137-145) mmol/L Potassium 3.5 (3.5-5.1) mmol/L Chloride 112 H (98-107) mmol/L Carbon Dioxide 26 (22-30) mmol/L BUN 77 H (9-20) mg/dL Creatinine 1.18 (0.66-1.25) mg/dL Glucose 100 H (74-99) mg/dL Calcium 9.3 (8.4-10.2) mg/dL Calcium panel 10/03/18 Range/Units 05:53 Calcium 9.3 (8.4-10.2) mg/dL Pituitary panel 10/03/18 Range/Units 05:53 Sodium 145 (137-145) mmol/L Potassium 3.5 (3.5-5.1) mmol/L Chloride 112 H (98-107) mmol/L Carbon Dioxide 26 (22-30) mmol/L BUN 77 H (9-20) mg/dL Creatinine 1.18 (0.66-1.25) mg/dL Glucose 100 H (74-99) mg/dL Calcium 9.3 (8.4-10.2) mg/dL Adrenal panel 10/03/18 Range/Units 05:53 Sodium 145 (137-145) mmol/L Potassium 3.5 (3.5-5.1) mmol/L Chloride 112 H (98-107) mmol/L Carbon Dioxide 26 (22-30) mmol/L BUN 77 H (9-20) mg/dL Creatinine 1.18 (0.66-1.25) mg/dL Glucose 100 H (74-99) mg/dL Calcium 9.3 (8.4-10.2) mg/dL Assessment and Plan Assessment: Impression Present on admission severe pain with history of throat cancer receiving chemoradiation treatment in June 2018 Present on admission symptomatic hypotension dehydration with poor oral intake Present on admission hypokalemia Present on admission acute kidney injury mostly prerenal likely due to hypotension hypoperfusion hypovelemia Present on admission left upper lobe pneumonia per chest x-ray Swallowing eval October 08 showed delay swallow inability to manage oral secretions markedly reduced laryngeal excursion Plan Continue current management per the consultants and attending defer to Aspiration precautions Candidate for a PEG tube placement for nutritional support IV fluid for hydration Xylocaine Viscous as ordered for throat pain Further surgical recommendations pending will follow with you Surgical consultation dictated for dr dupree The above impression and plan of care have been discussed and directed by signing physician. Kristina Enrique nurse practitioner acting as scribe for signing physician.
--- NOTE | 2018-10-03 12:56 | P.CONS ---
History of Present Illness - Reason for Consult Consult date: 10/03/18 SE of Tx for esophageal adenocarcinoma Requesting physician: Rusty Fairbanks - Chief Complaint dysphagia/odynophagia - History of Present Illness Mr. Mosley presented with pain with swallowing that started about February, , evaluated by Dr Suarez and had CT of the neck on 06/21/18 which revealed 2.3cm mass of the left supraglottic region at the level of false vocal cord. 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 It was felt to represent T3 lesion. 08/05 staging PET scan revealed suspicious uptake in left larynx, otherwise negative. 08/15/18 he started definitive concurrent cisplatin and radiation. Pt has had delays in chemo and radiation due to dysphagia and odynophagia. He presents to [facility] with c/o dizziness, near syncopy, inability to swallow with resulting in severe dehydration and acute kidney injury. When seen today he just finished a shower, less dizziness, no fever, nausea, EDU, acute changes in bowel or bladder habits, he had a normal BM yesterday, no bleeding or other pain to report. Review of Systems 14 point ROS is negative except as stated in HPI Past Medical History Past Medical History: Cancer, COPD, Hyperlipidemia, Hypertension, Osteoarthritis (OA) Additional Past Medical History / Comment(s): throat cancer History of Any Multi-Drug Resistant Organisms: None Reported Past Surgical History: Orthopedic Surgery Past Anesthesia/Blood Transfusion Reactions: No Reported Reaction Past Psychological History: Schizophrenia Smoking Status: Former smoker Past Alcohol Use History: None Reported Past Drug Use History: None Reported - Past Family History Mother Family Medical History: Deep Vein Thrombosis (DVT) Medications and Allergies Home Medications Medication Instructions Recorded Confirmed Type OLANZapine 15 mg PO HS 04/07/15 10/01/18 History Simvastatin [Zocor] 20 mg PO HS 04/07/15 10/01/18 History Sertraline HCl [Zoloft] 50 mg PO HS 06/14/16 10/01/18 History Lisinopril/Hydrochlorothiazide 1 tab PO HS 03/21/17 10/01/18 History [Zestoretic 20-25 mg Tablet] HYDROcodone/APAP 5-325MG [[place] 1 - 2 tab PO Q4-6H PRN 3 Days #36 07/27/1810/01 Rx 5-325] tab Docusate [Colace] 100 mg PO DAILY 10/01/18 10/01/18 History fentaNYL 50MCG/HR PATCH [Duragesic 50 mcg TOPICAL Q72H 10/01/18 10/01/18 History 50MCG/HR] Allergies Allergy/AdvReac Type Severity Reaction Status Date / Time No Known Allergies Allergy Verified 10/01/18 14:05 Physical Exam Vitals: Vital Signs Temp Pulse Pulse Resp BP Pulse Ox 10/03/18 11:47 94 16 10/03/18 11:36 98 16 10/03/18 08:35 96.2 F L 103 H 18 112/73 95 10/03/18 07:54 94 10/03/18 07:45 96 95 10/03/18 03:13 98.9 F 98 17 122/84 95 10/02/18 23:56 98.3 F 90 16 114/73 94 L 10/02/18 20:52 98 10/02/18 20:44 100 98 10/02/18 20:00 97.7 F 90 16 111/71 93 L 10/02/18 15:18 98.4 F 97 17 125/60 98 10/02/18 14:45 19 Intake and Output 10/02/18 10/03/18 10/03/18 22:59 06:59 14:59 Intake Total 0 Balance 0 Intake: Oral 0 Other: Voiding Method Toilet Toilet Toilet # Voids 1 2 Weight 84.8 kg - Constitutional General appearance: cooperative, no acute distress, obese - EENT reddened, dry oral mucosa, no ulcer Eyes: anicteric sclerae - Neck Neck: no lymphadenopathy - Respiratory Respiratory: bilateral: CTA - Cardiovascular Rhythm: regular Heart sounds: normal: S1, S2 Abnormal Heart Sounds: no systolic murmur, no diastolic murmur, no rub, no S3 Gallop, no S4 Gallop, no click, no other leg Peripheral Edema: bilateral: None - Gastrointestinal General gastrointestinal: no absent bowel sounds, no decreased bowel sounds, no distended, no hepatomegaly, no hyperactive bowel sounds, normal bowel sounds, no organomegaly, no rigid, no scaphoid, soft, no splenomegaly, no tenderness, no umbilical hernia, no ventral hernia - Integumentary Integumentary: normal - Neurologic Neurologic: CNII-XII intact - Musculoskeletal Musculoskeletal: strength equal bilaterally - Psychiatric Psychiatric: A&O x's 3, appropriate affect Results CBC & Chem 7: 10/02/18 05:39 10/03/18 05:53 Labs: Abnormal Lab Results - Last 24 Hours (Table) 10/03/18 Range/Units 05:53 Chloride 112 H (98-107) mmol/L BUN 77 H (9-20) mg/dL Glucose 100 H (74-99) mg/dL Microbiology - Last 24 Hours (Table) 10/01/18 12:54 Urine Culture - Final Urine,Voided 10/01/18 10:42 Blood Culture - Preliminary Blood No Growth after 24 hours Comments: renal US report reviewed Chest x-ray: report reviewed Assessment and Plan (1) Laryngeal squamous cell carcinoma Narrative/Plan: Case discussed with Dr. Velasquez and office chart reviewed. Pt has 8 more radiations and 1 more chemotherapy to complete definitive treatment for stage III squamous cell laryngeal malignancy. Plan is to continue therapy as Tx is curative in intent. Pt has nearly 2 weeks left of treatment. The dysphagia and odynophagia will continue for at least 2-3 weeks after that. Case discussed with IM. Consult already placed for Surgery to see pt and place PEG for nutritional support and hydration. Current Visit: Yes Status: Acute Priority: High Code(s): C32.9 - MALIGNANT NEOPLASM OF LARYNX, UNSPECIFIED SNOMED Code(s): 643897880 (2) Dysphagia Narrative/Plan: Secondary to treatment. Pt did fail swallow evaluation. Plans for PEG Current Visit: Yes Status: Acute Code(s): R13.10 - DYSPHAGIA, UNSPECIFIED SNOMED Code(s): 29975570 (3) Odynophagia Narrative/Plan: Secondary to treatment. Pt did fail swallow evaluation. Plans for PEG Current Visit: Yes Status: Acute Code(s): R13.10 - DYSPHAGIA, UNSPECIFIED SNOMED Code(s): 20303247 (4) Acute renal failure Narrative/Plan: Secondary to dysphagia/odynophagia from esophagal adeno treatment. Significant improvement in renal function after hydration. Nephrology has seen and evaluated pt Current Visit: Yes Status: Acute Priority: High Code(s): N17.9 - ACUTE KIDNEY FAILURE, UNSPECIFIED SNOMED Code(s): 01411073 (5) Near syncope Narrative/Plan: Due to dehydration, improvement in dizziness symptoms after hydration Current Visit: Yes Status: Acute Priority: High Code(s): R55 - SYNCOPE AND COLLAPSE SNOMED Code(s): 597268400
[2018-10-03] MEDS: GLYCOPYRROLATE 0.2 MG/ML 2 ML VIAL IVP PRN ×2 (15:09→21:25)
[2018-10-03] MEDS: LIDOCAINE VISCOUS 2% 15 ML CUP MUCOUS MEM PRN ×2 (15:10→21:24)
--- NOTE | 2018-10-03 19:27 | PN ---
PROGRESS NOTE DATE OF SERVICE: 10/03/18. PRESENTING COMPLAINT: Tired. INTERVAL HISTORY: This is a patient with supraglottic squamous cell cancer in the area of the false vocal cord, getting chemo and radiation, not able to swallow anything at all because of odynophagia. Presents with acute severe renal failure. The patient has not been able to take anything for last 3 weeks at least. Decision has been made to proceed with a PEG tube. The patient was started on Robinul last night to cut back on secretions, has not really helped much. REVIEW OF SYSTEMS: Done for constitutional, cardiovascular, GI, pulmonary; relevant findings as above. CURRENT MEDICATIONS: Reviewed that include Robinul, Duragesic patch, morphine, Xylocaine. PHYSICAL EXAMINATION: On examination: Temperature 96.4, pulse 94, respiratory 18, blood pressure 126/82, pulse 95 percent on room air. GENERAL APPEARANCE: Sitting up, tired appearing. EYES: Pupils equal. Conjunctivae normal. HEENT: External appearance of nose and ears normal. Oral cavity normal. NECK: JVD not raised. Mass not palpable. RESPIRATORY: Effort normal, lungs decreased breath sounds. CARDIOVASCULAR: First and second sounds, no edema. ABDOMEN: Soft, nontender. Liver and spleen not palpable. PSYCHIATRY: Alert and oriented x3. Mood and affect normal. INVESTIGATIONS: Potassium 3.5, BUN 37, creatinine 1.18. ASSESSMENT: 1. Acute severe renal failure/acute kidney injury, prerenal from poor oral intake. The patient is on SUSY inhibitors and that is all discontinued, much improved. 2. Supraglottic tumor mass with squamous cell carcinoma getting outpatient chemo and radiation treatment. 3. Acute odynophagia from the malignancy. 4. Acute aspiration pneumonitis probably chemical. Has not required antibiotic. Doing well. Patient remains n.p.o. 5. Chronic obstructive pulmonary disease in an ex-smoker. 6. Essential hypertension. 7. Hyperlipidemia. 8. Hypertensive shock on presentation with severe hypertension, tachycardia, now improved. 9. Primary osteoarthritis multiple joints bilateral. 10.Chronic schizophrenia. 11.Troponin leak in the setting of acute renal failure from hemodynamic instability not acute coronary syndrome. PLAN: Check labs in the morning. The patient is due to get a PEG tube. Care was discussed with the patient. MMODL / IJN: [id number] /
--- NOTE | 2018-10-03 20:54 | PN ---
PROGRESS NOTE Patient is seen for followup for acute kidney injury. His renal function has improved significantly with creatinine down from 6.8 on admission to 1.1 now. The patient is maintained on IV fluids. He states his throat pain still persists, maybe slightly better. PHYSICAL EXAMINATION: Blood pressure this morning was 119/78, heart rate 99 per minute. Patient is afebrile. Examination of the heart: S1, S2. Examination of the lungs: Decreased breath sounds at bases. Abdomen is soft, nontender. Examination of the lower extremities shows no significant edema. ARTIFICIAL TEETH INSPECTOR exam is grossly intact. LABS: Show sodium 145, potassium 3.5, chloride 112, BUN 77, serum creatinine 1.18, hemoglobin was 10.4 g/dL. ASSESSMENT: 1. Acute kidney injury, mainly prerenal, currently improved with IV hydration. 2. Simple right renal cyst with no further workup needed. 3. Laryngeal squamous cell cancer, maintained on radiation therapy, status post chemotherapy as well. 4. Mild hypokalemia, status post replacement. PLAN: Continue with IV fluids and repeat labs in a.m. MMODL / IJN: [id number] /
[2018-10-04] MEDS: MORPHINE SULFATE 2 MG/ML SYRINGE IVP PRN ×6 (01:00→20:11)
[2018-10-04] MEDS: LACTATED RINGERS 1,000 ML IV SCH ×2 (04:04→08:48)
[2018-10-04 06:40] LABS: HCT 33.8 % (39.0-53.0); MCH 31.3 pg (25.0-35.0); MCHC 32.4 g/dL (31.0-37.0); MCV 96.5 fL (80.0-100.0); Mean Platelet Volume 7.1; Platelet Count 299 k/uL (150-450); RDW 15.1 % (11.5-15.5); WBC 8.4 k/uL (3.8-10.6)
[2018-10-04 07:02] LABS: Anion Gap 7 mmol/L; Blood Urea Nitrogen 43 mg/dL (9-20); Calcium 9.4 mg/dL (8.4-10.2); Carbon Dioxide 29 mmol/L (22-30); Chloride 115 mmol/L (98-107); Glucose 108 mg/dL (74-99); Potassium 3.8 mmol/L (3.5-5.1); Sodium 151 mmol/L (137-145)
[2018-10-04 07:15] LABS: Band Neutrophils % 8 %; Lymphocytes # (M) 1.43 k/uL (1.0-4.8); Monocytes # (M) 0.76 k/uL (0-1.0); Myelocytes # (M) 0.17 k/uL (0); Myelocytes % 2 %; Neutrophils % (M) 66 %; Nucleated Red Blood Cells 0 /100 WBC (0-0); Total Cells Counted 200
[2018-10-04] MEDS: IPRATROPIUM-ALBUTEROL 3 ML NEB INHALATION SCH ×4 (08:32→20:56)
[2018-10-04] MEDS ORDERED: SODIUM CHLORIDE 0.45% 1,000 ML IV SCH (09:15)
[2018-10-04] MEDS ORDERED: LIDOCAINE 1% INJ 10MG/ML (20 ML MDV) ONE (09:36)
[2018-10-04] MEDS ORDERED: PROPOFOL 10 MG/ML 20 ML VIAL IV ONE (09:36)
[2018-10-04] MEDS ORDERED: IV FLUID CONTINUATION 1,000 ML IV ONE (09:36)
--- NOTE | 2018-10-04 09:46 | P.PN ---
Progress Note - Text Progress Note Date: 10/04/18 Patient seen today for PEG tube placement. Patient recently diagnosed with throat cancer. Risks and benefits of the procedure were discussed with the patient. We'll proceed with EGD and PEG tube placement.
--- NOTE | 2018-10-04 10:04 | P.PN ---
Subjective On-call hospitalist covering Dr. Fairbanks is starting 10/04/2018 This is a pleasant 62 years old male with past medical history of throat cancer , COPD, hyperlipidemia, hypertension and is arthritis. He presents because of difficulty eating and drinking secondary to throat cancer so patient on for the last 2 months was depending only a liquid diet as the main meal and he states that this make him so far and he went down regarding his general health. Patient was admitted with with acute kidney injury creatinine was 6.8 on admission and today is back to normal at 0.9. Patient has mildly elevated troponin of 0.035. Call cardiology consult. Normal saline At 75 mL/h for now Objective - Vital Signs Vital signs: Vital Signs Temp 98.3 F 10/04/18 07:56 Pulse 96 10/04/18 08:44 Resp 16 10/04/18 07:56 BP 130/83 10/04/18 07:56 Pulse Ox 95 10/04/18 07:56 Intake & Output 10/03/18 10/04/18 10/04/18 18:59 06:59 18:59 Intake Total 750 1000 Balance 750 1000 Weight 85.2 kg Intake: IV 1000 Lactated Ringers 1,000 ml 1000 @ 125 mls/hr IV .Q8H CRYS Rx#:[id number] Intake, IV Titration 750 Amount Lactated Ringers 1,000 ml 750 @ 125 mls/hr IV .Q8H CRYS Rx#:[id number] Other: Voiding Method Toilet Toilet # Voids 1 - Exam GENERAL: The patient is alert and oriented x3, not in any acute distress. Well developed, well nourished. -HEENT: Pupils are round and equally reacting to light. EOMI. No scleral icterus. No conjunctival pallor. Normocephalic, atraumatic. No pharyngeal erythema. No thyromegaly. Hoarseness of voice CARDIOVASCULAR: S1 and S2 present. No murmurs, rubs, or gallops. PULMONARY: Chest is clear to auscultation, no wheezing or crackles. ABDOMEN: Soft, nontender, nondistended, normoactive bowel sounds. No palpable organomegaly. MUSCULOSKELETAL: No joint swelling or deformity. EXTREMITIES: No cyanosis, clubbing, or pedal edema. NEUROLOGICAL: Gross neurological examination did not reveal any focal deficits. SKIN: No rashes. - Labs CBC & Chem 7: 10/04/18 06:10 10/04/18 06:10 Labs: Abnormal Lab Results - Last 24 Hours (Table) 10/04/18 10/04/18 Range/Units 06:10 06:10 RBC 3.50 L (4.30-5.90) m/uL Hgb 11.0 L (13.0-17.5) gm/dL Hct 33.8 L (39.0-53.0) % Myelocytes # (Manual) 0.17 H (0) k/uL Sodium 151 H (137-145) mmol/L Chloride 115 H (98-107) mmol/L BUN 43 H (9-20) mg/dL Glucose 108 H (74-99) mg/dL Microbiology - Last 24 Hours (Table) 10/01/18 10:42 Blood Culture - Preliminary Blood No Growth after 48 hours Assessment and Plan Assessment: History of throat cancer Dysphagia secondary to above. Patient is going for PEG tube placement positive troponin, rule out cardiac cause Acute kidney injury, resolved This fascial hypertension Hyperlipidemia Osteoarthritis History of COPD, not in acute exacerbation Plan: This is a pleasant 62 years old male who presents because of dysphagia secondary to throat cancer. He is going for PEG tube. Labs and medication were resumed. Continue same treatment. Continue with symptomatic treatment. Resume home medication. Monitor lytes and vitals. DVT and GI prophylaxis. Further recommendationsof the clinical course of the patient DVT prophylaxis: Subcutaneous Lovenox GI Prophylaxis: Pepcid PT/OT: Pending Prognosis is guarded
--- NOTE | 2018-10-04 10:17 | P.PCN ---
Date of Procedure: 10/04/18 Procedure(s) Performed: PREOPERATIVE DIAGNOSIS: Malnutrition, throat cancer POSTOPERATIVE DIAGNOSIS: Same, duodenitis with small ulcers, gastritis PROCEDURE: EGD with PEG tube placement SURGEON: Ofelia EBL: Minimal ANESTHESIA: Sedation COMPLICATIONS: None OPERATIVE PROCEDURE: The patient was placed in the supine position on the endoscopy table. The patient was sedated per anesthesia that time. The Olympus gastroscope was inserted into the oropharynx and passed under direct visualization to the region of the duodenum. The patient had duodenitis present with multiple small superficial-appearing ulcerations. No obstruction was seen. The pylorus was widely patent. The stomach was carefully inspected. The patient had mild diffuse gastritis present without ulcers. The stomach was fully insufflated with air. The abdominal wall was inspected. The light was seen shining through the abdominal wall in the left upper quadrant. This site was chosen for PEG tube placement. The area was prepped in the usual sterile fashion. This area was then localized with lidocaine. A small vertical incision was made using the scalpel. The Seldinger needle was advanced into the lumen of the stomach the wire was advanced. The wire was grasped with an endoscopic snare. The wire was pulled through the oropharynx. The catheter was then threaded over the guidewire and the guidewire and catheter were pulled anteriorly until the hub of the PEG tube catheter was seated against the anterior wall the stomach. The circular bolster was applied and tightened down. The endoscope was then readvanced into the stomach. There was no evidence of any bleeding and there was appropriate tightness on the bolster. The catheter was cut appropriately. The dual port feeding adapter was applied. DISPOSITION: Stable to recovery room
--- NOTE | 2018-10-04 11:28 | CONS ---
CONSULTATION Mr. Mosley is a 62-year-old male who was diagnosed with throat cancer, has been seen by Dr. Hunter and Dr. Orourke. He presented because of severe progressive weakness, lack of energy, falling down and inability to eat or drink anything. On presentation, he had acute renal failure her. Cardiology consultation was requested because of mild troponin elevation on presentation. Patient denies any prior history of cardiac disease. He is usually active and physically until this event. He has no exertional chest pain. He has no dizziness or palpitation. No syncope. No PND, orthopnea, or peripheral edema. He has lost a lot of weight recently. He has a history of chronic obstructive lung disease and history of smoking which he stopped just really recently. He had a PEG tube placed and has received IV fluid. On the monitor, he has been in sinus mechanism and has no evidence of tachycardia or bradycardia. He has not received chemotherapy or radiation as of yet. His coronary risk factors are positive for hypertension, hyperlipidemia, and smoking. He is nondiabetic. MEDICATION: At home includes simvastatin 20 mg daily, fentanyl, Zoloft, , lisinopril HCT 20-25 mg daily, and Colace. REVIEW OF SYSTEMS: RESPIRATORY SYSTEM: He has a history of chronic obstructive lung disease and history of dyspnea on exertion and chronic tobacco use. GI SYSTEM: No recent GI bleeding, no peptic ulcer disease, he had and weight loss. SYSTEM: No dysuria or hematuria. NERVOUS SYSTEM: No stroke or seizure. On presentation, his BUN and creatinine were 161 and 6.81. PHYSICAL EXAMINATION: He is a 62-year-old male, alert, oriented, in no apparent distress. Blood pressure 137/70 with a heart rate in the 80s. HEAD: Normocephalic. EYES: Sclerae nonicteric. NECK: Good upstroke, no jugular venous distention. LUNGS: Clear to auscultation. HEART: Regular rate and rhythm, S1, S2. No S3. No S4. No murmur or rub. ABDOMEN: Soft, nontender. PEG tube dressing noted. EXTREMITIES: No edema. LAB DATA: On presentation his BUN is 161, is down to 43 at this time. His creatinine was 6.8, is down to 0.94. His potassium 3.8. His sodium is up to 151, hemoglobin of 11. His troponin on presentation 0.035. His EKG reveals sinus tachycardia, rate of 132 with no acute changes. On the monitor he is in sinus mechanism. His chest x-ray on presentation raised the question of an infiltrate. He has a renal ultrasound, revealed no hydronephrosis. IMPRESSION: 1. Minimal elevation of the troponin, most likely related to the renal failure, does not represent an acute ischemic event. 2. Throat cancer with inability to swallow. 3. Acute kidney disease related to dehydration, resolved. 4. Weight loss related to the cancer. 5. Prior history of hypertension. 6. Prior history of hyperlipidemia. 7. History of chronic tobacco use and chronic obstructive lung disease. RECOMMENDATION: From the cardiac standpoint, I see no evidence of acute coronary artery syndrome at this time. I would not recommend any aggressive cardiac workup. I will obtain echocardiogram on Doppler to evaluate left ventricular systolic function in view of his multiple risk factors. Otherwise, no further workup will be needed from the cardiac standpoint. Thank you for this consult. Will follow with you. EBONYODL / IJN: [id number] /
[2018-10-04 11:56] VITALS: BMI 28.5
[2018-10-04] MEDS: ENOXAPARIN 40 MG/0.4 ML SYRINGE SQ SCH (12:20)
[2018-10-04] MEDS: LIDOCAINE VISCOUS 2% 15 ML CUP MUCOUS MEM PRN (12:20)
--- NOTE | 2018-10-04 12:26 | ECHOF ---
Referral Reason:htn MEASUREMENTS -------- HEIGHT: 172.7 cm WEIGHT: 84.8 kg BP: 135/75 RVIDd: 3.0 cm (< 3.3) IVSd: 1.1 cm (0.6 - 1.1) LVIDd: 3.6 cm (3.9 - 5.3) LVPWd: 1.1 cm (0.6 - 1.1) IVSs: 1.5 cm LVIDs: 1.4 cm LVPWs: 2.3 cm Ao Diam: 3.8 cm (2.0 - 3.7) AV Cusp: 1.9 cm (1.5 - 2.6) LA Diam: 3.3 cm (2.7 - 3.8) MV EXCURSION: 16.486 mm (> 18.000) MV EF SLOPE: 121 mm/s (70 - 150) EPSS: 1.2 cm MV E Jad: 0.84 m/s MV DecT: 157 ms MV A Jad: 0.84 m/s MV E/A Ratio: 1.01 RAP: 5.00 mmHg RVSP: 14.63 mmHg FINDINGS -------- Resting tachycardia (HR>100bpm). This was a technically difficult study with suboptimal views. The left ventricular size is normal. Left ventricular wall thickness is normal. Overall left vent ricular systolic function is normal with, an EF between 55 - 60 %. The right ventricle is mildly enlarged. The left atrium was not well visualized. The right atrium was not well visualized. Lumason used The aortic valve was not well visualized. The mitral valve was not well visualized. The tricuspid valve was not well visualized. The pulmonic valve was not well visualized. CONCLUSIONS -------- 1. Resting tachycardia (HR>100bpm). 2. This was a technically difficult study with suboptimal views. 3. The left ventricular size is normal. 4. Left ventricular wall thickness is normal. 5. Overall left ventricular systolic function is normal with, an EF between 55 - 60 %. 6. The right ventricle is mildly enlarged. 7. The left atrium was not well visualized. 8. The right atrium was not well visualized. 9. Lumason used 10. The aortic valve was not well visualized. 11. The mitral valve was not well visualized. 12. The tricuspid valve was not well visualized. 13. The pulmonic valve was not well visualized. OPERATIONS ASSOCIATE: Lisy Lake RDCS
--- NOTE | 2018-10-04 14:40 | CDI ---
Last Revision, October 2017 Documentation Clarification Form Date: 10/04/2018 2:28:49 PM From: Genevieve Cardona RN, CCDS Admit Date: 10/01/2018 12:07:00 PM Patient Name: Michael Mosley Visit Number: [id number] ATTENTION: The Clinical Documentation Specialists (CDI) and [facility] Coding Staff appreciate your assistance in clarifying documentation. Please respond to the clarification below the line at the bottom and electronically sign. The CDI & [facility] Coding staff will review the response and follow-up if needed. Please note: Queries are made part of the Legal Health Record. If you have any questions, please contact the author of this message via ITS. Giovanni Dobson MD Malnutrition has been documented in procedure note and requires further specificity. History/Risk Factors: CADEN w/ dehydration and hypovolemia this admission, throat CA, COPD Clinical Indicators: 10/04 Procedure Note: " malnutrition w/ throat cancer" Labs: Albumin/ Total Protein: 6.3/3.4 Current BMI: 28.6 Insufficient energy intake: "Pt reports pain when swallowing and a decreased appetite for 5 weeks." Weight Loss: per dietary Consult: "UBW was 220 lbs 3 wks ago" Loss of muscle mass: "Weak muscle town to bilateral lower extremities." Decreased hand bed teacher strength: equal & strong Treatment: Dietary Consult: completed 10/04/18 Supplements: Jevity 1.5 @ 60 cc/hr w/150 ml free water flush Q 4 hrs Lab monitoring: AM daily 10/04 Peg tube placed In your professional opinion, can you please clarify if these findings signify one of the following conditions? Mild Protein-Calorie Malnutrition Moderate Protein-Calorie Malnutrition Severe Protein-Calorie Malnutrition Other condition, please specify Unable to determine Please continue to document in your progress notes and discharge summary in order to capture severity of illness and risk of mortality. Include clinical findings that support your diagnosis. __Moderate Protein-Calorie Malnutrition MTDD
--- NOTE | 2018-10-04 14:48 | CDI ---
Last Revision, October 2017 Documentation Clarification Form Date: 10/04/2018 2:42:19 PM From: Genevieve Cardona RN, CCDS Admit Date: 10/01/2018 12:07:00 PM Patient Name: Michael Mosley Visit Number: [id number] ATTENTION: The Clinical Documentation Specialists (CDI) and [facility] Coding Staff appreciate your assistance in clarifying documentation. Please respond to the clarification below the line at the bottom and electronically sign. The CDI & [facility] Coding staff will review the response and follow-up if needed. Please note: Queries are made part of the Legal Health Record. If you have any questions, please contact the author of this message via ITS. Giovanni Dobson MD A low Hgb and Hct have been noted and lacks specificity to accurately reflect your patients severity of condition and clarification is needed. History/Risk Factors: throat CA, COPD, HTN, Hyperlipidemia, OA, Schizophrenia Clinical indicators: Hemoglobin: 12.4/10.4/11 Hematocrit:35.9/31.4/33.8 Treatment: lab monitoring 2L IVF bolus followed by 100 cc/hr In order to capture the severity of condition, please clarify the type of anemia and etiology if known: Acute blood loss anemia Acute on chronic blood loss anemia Chronic blood loss anemia Iron deficiency anemia Anemia due to malignancy Nutritional anemia Anemia of chronic kidney disease Unable to determine Other, please specify Please continue to document in your progress notes and discharge summary in order to capture severity of illness and risk of mortality. Include clinical findings that support your diagnosis. _possible nutritional anemia , however other causes needs to be investigated if no correction with resuming feeding MTDD
--- NOTE | 2018-10-04 14:58 | CDI ---
Last Revision, October 2017 Documentation Clarification Form Date: 10/04/2018 2:49:06 PM From: Genevieve Cardona RN, CCDS Admit Date: 10/01/2018 12:07:00 PM Patient Name: Michael Mosley Visit Number: [id number] ATTENTION: The Clinical Documentation Specialists (CDI) and [facility] [facility] [facility] [employer] Coding Staff appreciate your assistance in clarifying documentation. Please respond to the clarification below the line at the bottom and electronically sign. The CDI & [facility] [facility] [facility] [employer] Coding staff will review the response and follow-up if needed. Please note: Queries are made part of the Legal Health Record. If you have any questions, please contact the author of this message via ITS. Giovanni Dobson MD Hypotensive Shock is documented in the H&P and Progress note and is not a codeable condition. Please review and provide further specificity regarding condition if possible. Patient history/risk factors: Throat CA, dehydration, Dysphagia, schizophrenia Clinical Indicators: H&P: "Hypotensive shock on presentation with severe hypotension, tachycardia." Vitals on admission: temp 99.6, HR 130, RR 18, B/P 62/42, Spo2 85% RA Treatment: 4L IVF followed by 75 cc/hr LR @ 125 cc/hr Solumedrol 125mg IVP x 1 dose In your professional opinion, can you please specify the type of shock if known ? Hypovolemic Shock Cause Cardiogenic Shock Cause Other, please specify Unable to determine Please continue to document in your progress notes and discharge summary in order to capture severity of illness and risk of mortality. Include clinical findings that support your diagnosis. ____please refer to documentation by assigned physician. MTDD
--- NOTE | 2018-10-04 18:15 | P.PN ---
Subjective Progress Note Date: 10/04/18 Principal diagnosis: laryngeal malignancy, in treatment Objective - Vital Signs Vital signs: Vital Signs Temp 98.1 F 10/04/18 15:44 Pulse 94 10/04/18 16:17 Resp 16 10/04/18 15:44 BP 134/90 10/04/18 15:44 Pulse Ox 98 10/04/18 15:44 Intake & Output 10/03/18 10/04/18 10/04/18 18:59 06:59 18:59 Intake Total 750 1050 Balance 750 1050 Weight 85.2 kg 85.2 kg Intake: IV 1050 Lactated Ringers 1,000 ml 1000 @ 125 mls/hr IV .Q8H [facility] Rx#:[id number] Intake, IV Titration 750 Amount Lactated Ringers 1,000 ml 750 @ 125 mls/hr IV .Q8H [facility] Rx#:[id number] Other: Voiding Method Toilet Toilet Toilet # Voids 1 1 - Labs CBC & Chem 7: 10/04/18 06:10 10/04/18 06:10 Labs: Abnormal Lab Results - Last 24 Hours (Table) 10/04/18 10/04/18 Range/Units 06:10 06:10 RBC 3.50 L (4.30-5.90) m/uL Hgb 11.0 L (13.0-17.5) gm/dL Hct 33.8 L (39.0-53.0) % Myelocytes # (Manual) 0.17 H (0) k/uL Sodium 151 H (137-145) mmol/L Chloride 115 H (98-107) mmol/L BUN 43 H (9-20) mg/dL Glucose 108 H (74-99) mg/dL Microbiology - Last 24 Hours (Table) 10/01/18 10:42 Blood Culture - Preliminary Blood No Growth after 72 hours Assessment and Plan (1) Laryngeal squamous cell carcinoma Narrative/Plan: Plan is to continue therapy next week with curative in intent. PEG placed for nutritional support and hydration. Current Visit: Yes Status: Acute Priority: High Code(s): C32.9 - MALIGNANT NEOPLASM OF LARYNX, UNSPECIFIED SNOMED Code(s): 284859866 (2) Dysphagia Current Visit: Yes Status: Acute Code(s): R13.10 - DYSPHAGIA, UNSPECIFIED SNOMED Code(s): 02928564 (3) Odynophagia Current Visit: Yes Status: Acute Code(s): R13.10 - DYSPHAGIA, UNSPECIFIED SNOMED Code(s): 70750380 (4) Acute renal failure Narrative/Plan: Significantly improved with hydration, Nephrology following Current Visit: Yes Status: Acute Priority: High Code(s): N17.9 - ACUTE KIDNEY FAILURE, UNSPECIFIED SNOMED Code(s): 77201665 (5) Near syncope Current Visit: Yes Status: Resolved Priority: High Code(s): R55 - SYNCOPE AND COLLAPSE SNOMED Code(s): 894657301 Plan: Will get appts coordinated to resume treatment next week
[2018-10-04] MEDS: FAMOTIDINE 20 MG/2 ML VIAL IV SCH (20:13)
[2018-10-05] MEDS: MORPHINE SULFATE 2 MG/ML SYRINGE IVP PRN ×6 (00:08→21:40)
[2018-10-05] MEDS: LIDOCAINE VISCOUS 2% 15 ML CUP MUCOUS MEM PRN ×3 (00:14→19:03)
[2018-10-05 06:30] LABS: Anion Gap 7 mmol/L; Blood Urea Nitrogen 35 mg/dL (9-20); Calcium 9.1 mg/dL (8.4-10.2); Carbon Dioxide 29 mmol/L (22-30); Chloride 116 mmol/L (98-107); Glucose 102 mg/dL (74-99); Potassium 3.9 mmol/L (3.5-5.1); Sodium 152 mmol/L (137-145)
[2018-10-05] MEDS ORDERED: DEXTROSE 5% IN WATER 1,000 ML IV SCH (08:45)
[2018-10-05] MEDS: ENOXAPARIN 40 MG/0.4 ML SYRINGE SQ SCH (08:55)
[2018-10-05] MEDS: PANTOPRAZOLE 40 MG/10 ML VIAL IVP SCH (08:56)
[2018-10-05] MEDS: FAMOTIDINE 20 MG/2 ML VIAL IV SCH (08:56)
[2018-10-05] MEDS: IPRATROPIUM-ALBUTEROL 3 ML NEB INHALATION SCH ×4 (09:07→19:46)
--- NOTE | 2018-10-05 11:26 | P.PN ---
Subjective On-call hospitalist covering Dr. Fairbanks is starting 10/04/2018 This is a pleasant 62 years old male with past medical history of throat cancer , COPD, hyperlipidemia, hypertension and is arthritis. He presents because of difficulty eating and drinking secondary to throat cancer so patient on for the last 2 months was depending only a liquid diet as the main meal and he states that this make him so far and he went down regarding his general health. Patient was admitted with with acute kidney injury creatinine was 6.8 on admission and today is back to normal at 0.9. Patient has mildly elevated troponin of 0.035. Call cardiology consult. Normal saline At 75 mL/h for now 10/05/2018 Patient has PEG tube placed yesterday and start feeding today. His sodium still high at 152 and patient was started on water flushes via PEG tube. His creatinine is not on 0.9 however his sodium is high as 150-1 potassium 3.9. Also troponins on pain around the anal orifices in both ports showing serrated/ pinkish and tenderness with some scaling. Patient was started on topical antibiotics as well as an oral once. Physical and occupational therapy evaluated patient and recommended home. Objective - Vital Signs Vital signs: Vital Signs Temp 98.1 F 10/05/18 03:35 Pulse 92 10/05/18 09:18 Resp 18 10/05/18 03:35 BP 148/87 10/05/18 03:35 Pulse Ox 95 10/05/18 03:35 Intake & Output 10/04/18 10/05/18 10/05/18 18:59 06:59 18:59 Intake Total 1050 Output Total 200 Balance 1050 -200 Weight 85.2 kg 85.3 kg Intake: IV 1050 Lactated Ringers 1,000 ml 1000 @ 125 mls/hr IV .Q8H [facility] Rx#:[id number] Output: Urine 200 Other: Voiding Method Toilet Toilet # Voids 1 1 - Exam GENERAL: The patient is alert and oriented x3, not in any acute distress. Well developed, well nourished. -HEENT: Pupils are round and equally reacting to light. EOMI. No scleral icterus. No conjunctival pallor. Normocephalic, atraumatic. No pharyngeal erythema. No thyromegaly. Hoarseness of voice CARDIOVASCULAR: S1 and S2 present. No murmurs, rubs, or gallops. PULMONARY: Chest is clear to auscultation, no wheezing or crackles. ABDOMEN: Soft, nontender, nondistended, normoactive bowel sounds. No palpable organomegaly. MUSCULOSKELETAL: No joint swelling or deformity. EXTREMITIES: No cyanosis, clubbing, or pedal edema. NEUROLOGICAL: Gross neurological examination did not reveal any focal deficits. SKIN: No rashes. - Labs CBC & Chem 7: 10/04/18 06:10 10/05/18 06:00 Labs: Abnormal Lab Results - Last 24 Hours (Table) 10/05/18 Range/Units 06:00 Sodium 152 H (137-145) mmol/L Chloride 116 H (98-107) mmol/L BUN 35 H (9-20) mg/dL Glucose 102 H (74-99) mg/dL Microbiology - Last 24 Hours (Table) 10/01/18 10:42 Blood Culture - Preliminary Blood No Growth after 72 hours Assessment and Plan Assessment: History of throat cancer Dysphagia secondary to above. Patient is going for PEG tube placement positive troponin, rule out cardiac cause Acute kidney injury, resolved This fascial hypertension Hyperlipidemia Osteoarthritis History of COPD, not in acute exacerbation Plan: This is a pleasant 62 years old male who presents because of dysphagia secondary to throat cancer. He is going for PEG tube. Labs and medication were resumed. Continue same treatment. Continue with symptomatic treatment. Resume home medication. Monitor lytes and vitals. DVT and GI prophylaxis. Further recommendationsof the clinical course of the patient DVT prophylaxis: Subcutaneous Lovenox GI Prophylaxis: Pepcid PT/OT: Pending Prognosis is guarded
--- NOTE | 2018-10-05 12:07 | PN ---
PROGRESS NOTE Mr. Mosley is a 62-year-old male with a history of throat cancer who presented with progressive dehydration, weakness and fatigue, was found to have severe renal function abnormality. He has received IV fluid. The PEG tube was placed yesterday and he started feeding. He is feeling weak. He has discomfort in the legs, but he is overall feeling better. No chest pain. No palpitation. No dizziness. Cardiology consultation was initiated because of minimal elevation of the troponin on presentation. His echocardiogram revealed a preserved left ventricular size and systolic function with no segmental wall motion abnormality. PHYSICAL EXAMINATION: Blood pressure running in the 120s to 140s with the heart rate in 90s. LUNGS: Clear. HEART: Regular rate and rhythm. S1, S2. No S3. No rub. ABDOMEN: Soft. Positive bowel sounds with a PEG tube in place. EXTREMITIES: No edema. LAB DATA: Lab data revealed a BUN and creatinine 35 and 0.9. Potassium 3.9. His sodium is up to 152. IMPRESSION: 1. Severe renal failure, recovered, related to prerenal azotemia. 2. Mild troponin elevation secondary to the renal failure. No evidence of an acute ischemic event. 3. Throat cancer. 4. Prior history of hypertension, stable. 5. History of hyperlipidemia. 6. Prior history of chronic tobacco use and chronic obstructive lung disease. RECOMMENDATION: From the cardiac standpoint, the patient is stable. No further cardiac workup is needed. We will see him on as needed basis. Please feel free to call us for any question. MMODL / IJN: [id number] /
[2018-10-05] MEDS: CEPHALEXIN 500 MG CAP PO SCH ×3 (12:37→21:41)
[2018-10-05] MEDS: NYSTATIN 100,000UNIT/GM CREAM 30 GM TUBE TOPICAL SCH ×2 (13:00→21:41)
[2018-10-05] MEDS: TRIAMCINOLONE 0.1% CREAM 80 GM TUBE TOPICAL SCH ×2 (13:00→21:41)
[2018-10-05] MEDS: BACITRACIN 500 UNIT/GM OINT 28.4 GM TUBE TOPICAL SCH ×2 (13:00→21:41)
--- NOTE | 2018-10-05 15:13 | P.PN ---
Subjective Progress Note Date: 10/05/18 Principal diagnosis: Malnutrition dysphagia Patient doing well today. Minimal pain at PEG tube insertion site. Describes a sore throat. Tolerating tube feeds at 20 mL per hour currently. Objective - Vital Signs Vital signs: Vital Signs Temp 98.1 F 10/05/18 03:35 Pulse 92 10/05/18 13:01 Resp 18 10/05/18 03:35 BP 148/87 10/05/18 03:35 Pulse Ox 95 10/05/18 03:35 Intake & Output 10/04/18 10/05/18 10/05/18 18:59 06:59 18:59 Intake Total 1050 Output Total 200 Balance 1050 -200 Weight 85.2 kg 85.3 kg Intake: IV 1050 Lactated Ringers 1,000 ml 1000 @ 125 mls/hr IV .Q8H [facility] Rx#:[id number] Output: Urine 200 Other: Voiding Method Toilet Toilet # Voids 1 1 - Exam Abdomen: Soft, nondistended, mild tenderness at PEG tube site - Labs CBC & Chem 7: 10/04/18 06:10 10/05/18 06:00 Labs: Abnormal Lab Results - Last 24 Hours (Table) 10/05/18 Range/Units 06:00 Sodium 152 H (137-145) mmol/L Chloride 116 H (98-107) mmol/L BUN 35 H (9-20) mg/dL Glucose 102 H (74-99) mg/dL Microbiology - Last 24 Hours (Table) 10/01/18 10:42 Blood Culture - Preliminary Blood No Growth after 96 hours Assessment and Plan (1) Dysphagia Narrative/Plan: Continue gradually advancing tube feeds as tolerated. Will follow. Current Visit: Yes Status: Acute Code(s): R13.10 - DYSPHAGIA, UNSPECIFIED SNOMED Code(s): 34023772
--- NOTE | 2018-10-05 16:59 | P.PN ---
Subjective Progress Note Date: 10/05/18 Principal diagnosis: laryngeal malignancy, in treatment Pt seen in f/u, he has started continuous tube feedings. He has only mild abd discomfort with cough and palpation around the tube, no belching, coughing, abd distension. He continues to use viscous lidocaine for throat pain. Objective - Vital Signs Vital signs: Vital Signs Temp 98 F 10/05/18 15:25 Pulse 92 10/05/18 16:24 Resp 16 10/05/18 15:25 BP 144/88 10/05/18 15:25 Pulse Ox 98 10/05/18 15:25 Intake & Output 10/04/18 10/05/18 10/05/18 18:59 06:59 18:59 Intake Total 1050 Output Total 200 Balance 1050 -200 Weight 85.2 kg 85.3 kg 85.3 kg Intake: IV 1050 Lactated Ringers 1,000 ml 1000 @ 125 mls/hr IV .Q8H [facility] Rx#:[id number] Output: Urine 200 Other: Voiding Method Toilet Toilet # Voids 1 1 - Constitutional General appearance: Present: average body habitus, cooperative, no acute distress - EENT Eyes: Present: anicteric sclerae ENT: Present: normal oropharynx - Respiratory Respiratory: bilateral: CTA - Cardiovascular Rhythm: regular Heart sounds: normal: S1, S2 - Gastrointestinal Gastrointestinal Comment(s): dressing around PEG is dry General gastrointestinal: Present: normal bowel sounds, soft, tenderness - Neurologic Neurologic: Present: CNII-XII intact - Musculoskeletal Musculoskeletal: Present: strength equal bilaterally - Psychiatric Psychiatric: Present: A&O x's 3, appropriate affect, intact judgment & insight - Labs CBC & Chem 7: 10/04/18 06:10 10/05/18 06:00 Labs: Abnormal Lab Results - Last 24 Hours (Table) 10/05/18 Range/Units 06:00 Sodium 152 H (137-145) mmol/L Chloride 116 H (98-107) mmol/L BUN 35 H (9-20) mg/dL Glucose 102 H (74-99) mg/dL Microbiology - Last 24 Hours (Table) 10/01/18 10:42 Blood Culture - Preliminary Blood No Growth after 96 hours Assessment and Plan (1) Laryngeal squamous cell carcinoma Narrative/Plan: Plan is to continue therapy next week with curative in intent. Appts will be put in EMR Current Visit: Yes Status: Acute Priority: High Code(s): C32.9 - MALIGNANT NEOPLASM OF LARYNX, UNSPECIFIED SNOMED Code(s): 276903359 (2) Dysphagia Narrative/Plan: Secondary to treatment with more treatment needed to complete curative course. Pt did fail swallow evaluation. PEG tube placed, tube feeds initiated, pt tolerating well Current Visit: Yes Status: Acute Code(s): R13.10 - DYSPHAGIA, UNSPECIFIED SNOMED Code(s): 32957544 (3) Odynophagia Current Visit: Yes Status: Acute Code(s): R13.10 - DYSPHAGIA, UNSPECIFIED SNOMED Code(s): 76397013 (4) Acute renal failure Narrative/Plan: Improved with hydration Current Visit: Yes Status: Acute Priority: High Code(s): N17.9 - ACUTE KIDNEY FAILURE, UNSPECIFIED SNOMED Code(s): 26177729 (5) Near syncope Current Visit: Yes Status: Resolved Priority: High Code(s): R55 - SYNCOPE AND COLLAPSE SNOMED Code(s): 821836910
[2018-10-05] MEDS: LORazepam 2 MG/ML INJ IV PRN (18:11)
--- NOTE | 2018-10-05 18:14 | PN ---
PROGRESS NOTE Patient is seen for followup for acute kidney injury which was mainly prerenal. Renal function has improved significantly, with serum creatinine down to 0.94 from 6.8 on initial admission. Patient is maintained on IV fluids. He has become hypernatremic and has been started on free water down the feeding tube and his fluids have been changed to D5W as well. Patient has underlying laryngeal cancer and is maintained on radiation therapy. He is maintained on tube feedings as well. PHYSICAL EXAMINATION: Blood pressure this morning was 148/87, heart rate of 90 per minute. Patient is afebrile. EXAMINATION OF THE HEART: S1, S2. EXAMINATION OF LUNGS: Bilateral breath sounds are heard. ABDOMEN: Soft, non-tender. Examination of lower extremities shows no evidence of edema. SANITARY AIDE exam is grossly intact. LABS: Labs show sodium 152, potassium 3.9, BUN 35, serum creatinine 0.94. Hemoglobin was 11.0 g/dL. ASSESSMENT: 1. Acute kidney injury, prerenal, currently resolved. Serum creatinine at 0.94 mg/dL. Patient has had good urine output. 2. Hypernatremia associated with free water deficit, started on free water down the feeding tube. IV fluids have also been changed to D5W. Expect improvement in serum sodium by tomorrow. 3. Underlying laryngeal cancer, maintained on radiation therapy. 4. Malnutrition, currently status post PEG tube placement, maintained on tube feedings. PLAN: Change IV fluids to D5W. Continue free water down the feeding tube. Repeat labs in a.m. MMODL / IJN: [id number] /
[2018-10-05] MEDS ORDERED: DEXTROSE 5%-0.45% NACL 1,000 ML IV SCH (21:15)
[2018-10-05 21:58] LABS: Anion Gap 4 mmol/L; Blood Urea Nitrogen 33 mg/dL (9-20); Calcium 8.6 mg/dL (8.4-10.2); Carbon Dioxide 27 mmol/L (22-30); Chloride 116 mmol/L (98-107); Glucose 162 mg/dL (74-99); Potassium 3.2 mmol/L (3.5-5.1); Sodium 147 mmol/L (137-145)
[2018-10-06] MEDS: LORazepam 2 MG/ML INJ IV PRN ×2 (00:02→21:39)
[2018-10-06] MEDS: DEXTROSE 5% IN WATER 1,000 ML IV SCH ×3 (02:14→14:01)
[2018-10-06] MEDS: SERTRALINE 50 MG TAB PO SCH ×3 (02:28→21:38)
[2018-10-06] MEDS: MORPHINE SULFATE 2 MG/ML SYRINGE IVP PRN ×3 (02:29→19:43)
[2018-10-06] MEDS: OLANZapine 5 MG TAB PO SCH ×2 (03:53→09:35)
[2018-10-06] MEDS: IPRATROPIUM-ALBUTEROL 3 ML NEB INHALATION SCH ×4 (07:19→21:11)
[2018-10-06 08:21] LABS: Anion Gap 5 mmol/L; Blood Urea Nitrogen 27 mg/dL (9-20); Calcium 8.3 mg/dL (8.4-10.2); Carbon Dioxide 32 mmol/L (22-30); Chloride 112 mmol/L (98-107); Glucose 134 mg/dL (74-99); Potassium 3.6 mmol/L (3.5-5.1); Sodium 149 mmol/L (137-145)
[2018-10-06] MEDS ORDERED: OLANZapine 5 MG TAB PO SCH (09:00)
[2018-10-06] MEDS ORDERED: POTASSIUM CHLORIDE ER 20 MEQ TAB.ER PO STA (09:01)
--- NOTE | 2018-10-06 09:01 | P.PN ---
Subjective Patient is seen in follow-up for acute kidney injury and hypernatremia. Sodium level is up to 149 this morning. Patient is currently receiving D5W at 75 mL an hour as well as free water flushes 150 mL every 4 hours with tube feeds. Patient has laryngeal cancer and is not able to tolerate oral intake. Renal injury has resolved GFR is back to baseline. Patient has no active complaints at this time. Vital signs are stable. General: The patient appeared well nourished and normally developed. HEENT: Head exam is unremarkable. Neck is without jugular venous distension. LUNGS: Lungs are clear to auscultation and percussion. Breath sounds decreased. HEART: Rate and Rhythm are regular. First and second heart sounds normal. No murmurs, rubs or gallops. ABDOMEN: Abdominal exam reveals normal bowel sounds. Non-tender and non- distended. No evidence of peritonitis. EXTREMITITES: No clubbing, cyanosis, or edema. Objective - Vital Signs Vital signs: Vital Signs Temp 98.0 F 10/06/18 02:43 Pulse 100 10/06/18 07:32 Resp 18 10/06/18 02:43 BP 129/75 10/06/18 02:43 Pulse Ox 92 L 10/06/18 07:19 Intake & Output 10/05/18 10/06/18 10/06/18 18:59 06:59 18:59 Intake Total 150 Balance 150 Weight 85.3 kg 85.9 kg Intake: Tube Feeding 150 Other: Voiding Method Toilet Toilet # Voids 2 1 - Labs CBC & Chem 7: 10/04/18 06:10 10/06/18 06:36 Labs: Abnormal Lab Results - Last 24 Hours (Table) 10/05/18 10/06/18 Range/Units 21:27 06:36 Sodium 147 H 149 H (137-145) mmol/L Potassium 3.2 L (3.5-5.1) mmol/L Chloride 116 H 112 H (98-107) mmol/L Carbon Dioxide 32 H (22-30) mmol/L BUN 33 H 27 H (9-20) mg/dL Glucose 162 H 134 H (74-99) mg/dL Calcium 8.3 L (8.4-10.2) mg/dL Microbiology - Last 24 Hours (Table) 10/01/18 10:42 Blood Culture - Preliminary Blood No Growth after 96 hours Assessment and Plan Plan: Assessment: 1. Hypernatremia secondary to lack of oral water intake. Sodium level of 149 today. 2. Laryngeal cancer maintained on radiation therapy. 3. Nonoliguric acute kidney injury mostly prerenal. Improved with IV hydration. GFR back to baseline. 4. Hypokalemia from poor oral intake. Improved post placement. Plan: Maintain D5W at 75 mL an hour. Increase free water flushes at 300 mL every 4 hours. I will give 40 mEq of potassium today. Check magnesium level. Repeat electrolytes in the morning.
[2018-10-06] MEDS ORDERED: POTASSIUM BICARBONATE/CIT AC 20 MEQ TABLET.EFF PO STA (09:08)
--- NOTE | 2018-10-06 09:24 | P.PN ---
Subjective On-call hospitalist covering Dr. Fairbanks is starting 10/04/2018 This is a pleasant 62 years old male with past medical history of throat cancer , COPD, hyperlipidemia, hypertension and is arthritis. He presents because of difficulty eating and drinking secondary to throat cancer so patient on for the last 2 months was depending only a liquid diet as the main meal and he states that this make him so far and he went down regarding his general health. Patient was admitted with with acute kidney injury creatinine was 6.8 on admission and today is back to normal at 0.9. Patient has mildly elevated troponin of 0.035. Call cardiology consult. Normal saline At 75 mL/h for now 10/05/2018 Patient has PEG tube placed yesterday and start feeding today. His sodium still high at 152 and patient was started on water flushes via PEG tube. His creatinine is not on 0.9 however his sodium is high as 150-1 potassium 3.9. Also troponins on pain around the anal orifices in both ports showing serrated/ pinkish and tenderness with some scaling. Patient was started on topical antibiotics as well as an oral once. Physical and occupational therapy evaluated patient and recommended home. 10/06/2018 Patient tolerating PEG tube feeding. Side found that this is clean and dry with no signs symptoms of cellulitis. Patient's sodium is 149 today. Nephrology follow-up is appreciated. Continue with the YW at 75 mL/h. Increase water flushes well from 150 to 300 every 4 hours and follow-up sodium level. Replace electrolytes. No chest pain or dyspnea. Patient still complains from cellulitis around the inguinal area on both bouts with some emaciation patient states that he have this problem for 6-8 weeks now. Continue with antibiotics and topical treatment. Objective - Vital Signs Vital signs: Vital Signs Temp 98.0 F 10/06/18 02:43 Pulse 100 10/06/18 07:32 Resp 18 10/06/18 02:43 BP 129/75 10/06/18 02:43 Pulse Ox 92 L 10/06/18 07:19 Intake & Output 10/05/18 10/06/18 10/06/18 18:59 06:59 18:59 Intake Total 150 Balance 150 Weight 85.3 kg 85.9 kg Intake: Tube Feeding 150 Other: Voiding Method Toilet Toilet # Voids 2 1 - Labs CBC & Chem 7: 10/04/18 06:10 10/06/18 06:36 Labs: Abnormal Lab Results - Last 24 Hours (Table) 10/05/18 10/06/18 Range/Units 21:27 06:36 Sodium 147 H 149 H (137-145) mmol/L Potassium 3.2 L (3.5-5.1) mmol/L Chloride 116 H 112 H (98-107) mmol/L Carbon Dioxide 32 H (22-30) mmol/L BUN 33 H 27 H (9-20) mg/dL Glucose 162 H 134 H (74-99) mg/dL Calcium 8.3 L (8.4-10.2) mg/dL Microbiology - Last 24 Hours (Table) 10/01/18 10:42 Blood Culture - Preliminary Blood No Growth after 96 hours Assessment and Plan Assessment: History of throat cancer Perianal cellulitis Dysphagia secondary to above. Patient is going for PEG tube placement positive troponin, rule out cardiac cause Acute kidney injury, resolved This fascial hypertension Hyperlipidemia Osteoarthritis History of COPD, not in acute exacerbation Plan: This is a pleasant 62 years old male who presents because of dysphagia secondary to throat cancer. He is going for PEG tube. Labs and medication were resumed. Continue same treatment. Continue with symptomatic treatment. Resume home medication. Monitor lytes and vitals. DVT and GI prophylaxis. Further recommendationsof the clinical course of the patient DVT prophylaxis: Subcutaneous Lovenox GI Prophylaxis: Pepcid PT/OT: Pending Prognosis is guarded
[2018-10-06] MEDS: PANTOPRAZOLE 40 MG/10 ML VIAL IVP SCH (09:33)
[2018-10-06] MEDS: CEPHALEXIN 500 MG CAP PO SCH ×3 (09:34→21:38)
[2018-10-06] MEDS: ENOXAPARIN 40 MG/0.4 ML SYRINGE SQ SCH (09:34)
[2018-10-06] MEDS: TRIAMCINOLONE 0.1% CREAM 80 GM TUBE TOPICAL SCH ×2 (09:36→21:38)
[2018-10-06] MEDS: NYSTATIN 100,000UNIT/GM CREAM 30 GM TUBE TOPICAL SCH ×2 (09:45→21:33)
--- NOTE | 2018-10-06 12:10 | P.PN ---
Subjective Progress Note Date: 10/06/18 Principal diagnosis: Current treatment for laryngeal carcinoma Feeling better now re-hydrated wants to go home Objective - Vital Signs Vital signs: Vital Signs Temp 98.0 F 10/06/18 02:43 Pulse 96 10/06/18 11:08 Resp 18 10/06/18 02:43 BP 129/75 10/06/18 02:43 Pulse Ox 92 L 10/06/18 07:19 Intake & Output 10/05/18 10/06/18 10/06/18 18:59 06:59 18:59 Intake Total 150 Balance 150 Weight 85.3 kg 85.9 kg Intake: Tube Feeding 150 Other: Voiding Method Toilet Toilet # Voids 2 1 - Exam Constitutional General appearance: Present: average body habitus, cooperative, no acute distress - EENT Eyes: Present: anicteric sclerae ENT: Present: normal oropharynx - Respiratory Respiratory: bilateral: CTA - Cardiovascular Rhythm: regular Heart sounds: normal: S1, S2 - Gastrointestinal Gastrointestinal Comment(s): dressing around PEG is dry General gastrointestinal: Present: normal bowel sounds, soft, tenderness - Neurologic Neurologic: Present: CNII-XII intact - Musculoskeletal Musculoskeletal: Present: strength equal bilaterally - Psychiatric Psychiatric: Present: A&O x's 3, appropriate affect, intact judgment & insight - Labs CBC & Chem 7: 10/04/18 06:10 10/06/18 06:36 Labs: Abnormal Lab Results - Last 24 Hours (Table) 10/05/18 10/06/18 Range/Units 21:27 06:36 Sodium 147 H 149 H (137-145) mmol/L Potassium 3.2 L (3.5-5.1) mmol/L Chloride 116 H 112 H (98-107) mmol/L Carbon Dioxide 32 H (22-30) mmol/L BUN 33 H 27 H (9-20) mg/dL Glucose 162 H 134 H (74-99) mg/dL Calcium 8.3 L (8.4-10.2) mg/dL Microbiology - Last 24 Hours (Table) 10/01/18 10:42 Blood Culture - Preliminary Blood No Growth after 96 hours Assessment and Plan Plan: Assessment and Plan (1) Laryngeal squamous cell carcinoma Narrative/Plan: - Plan is to continue therapy as outpatient next week with curative intent. Current Visit: Yes Status: Acute Priority: High Code(s): C32.9 - MALIGNANT NEOPLASM OF LARYNX, UNSPECIFIED SNOMED Code(s): 367270750 (2) Dysphagia Narrative/Plan: Secondary to treatment with more treatment needed to complete curative course. Pt did fail swallow evaluation. - Status Post PEG tube placement for supplementation and adequate nutrition while completion of curative chemoradiation completes - He did fail swallow evaluation and will need repeat prior to po intake. - Feedings have been initiated and tolerating well Current Visit: Yes Status: Acute Code(s): R13.10 - DYSPHAGIA, UNSPECIFIED SNOMED Code(s): 47906551 (3) Odynophagia Current Visit: Yes Status: Acute Code(s): R13.10 - DYSPHAGIA, UNSPECIFIED SNOMED Code(s): 94377193 - Secondary to chemotherapy and radiation therapy (4) Acute renal failure - Secondary to dehydration from inability to stay adequately hydrated Resolved Narrative/Plan: Improved with hydration Current Visit: Yes Status: Acute Priority: High Code(s): N17.9 - ACUTE KIDNEY FAILURE, UNSPECIFIED SNOMED Code(s): 89582260 (5) Near syncope - Secondary to likely dehydration Current Visit: Yes Status: Resolved Priority: High Code(s): R55 - SYNCOPE AND COLLAPSE SNOMED Code(s): 599337713 Plan: Ok for discharge from oncology standpoint, discussed with Dr. Colmenares
[2018-10-06] MEDS: LIDOCAINE VISCOUS 2% 15 ML CUP MUCOUS MEM PRN (12:29)
[2018-10-06] MEDS: BACITRACIN 500 UNIT/GM OINT 28.4 GM TUBE TOPICAL SCH ×2 (16:30→21:33)
--- NOTE | 2018-10-06 21:17 | P.PN ---
Subjective Progress Note Date: 10/06/18 Principal diagnosis: Malnutrition dysphagia Patient without new complaints. Tolerating tube feeds at goal. Plans are underway for upcoming discharge. No vomiting. Objective - Vital Signs Vital signs: Vital Signs Temp 98.3 F 10/06/18 16:00 Pulse 90 10/06/18 21:11 Resp 18 10/06/18 20:00 BP 121/81 10/06/18 16:00 Pulse Ox 95 10/06/18 16:00 Intake & Output 10/06/18 10/06/18 10/07/18 06:59 18:59 06:59 Intake Total 150 720 Balance 150 720 Weight 85.9 kg Intake: Tube Feeding 150 720 Other: Voiding Method Toilet Toilet Toilet # Voids 1 1 - Exam Abdomen: Soft, nondistended, PEG tube intact, bolster lucent - Labs CBC & Chem 7: 10/04/18 06:10 10/06/18 06:36 Labs: Abnormal Lab Results - Last 24 Hours (Table) 10/05/18 10/06/18 Range/Units 21:27 06:36 Sodium 147 H 149 H (137-145) mmol/L Potassium 3.2 L (3.5-5.1) mmol/L Chloride 116 H 112 H (98-107) mmol/L Carbon Dioxide 32 H (22-30) mmol/L BUN 33 H 27 H (9-20) mg/dL Glucose 162 H 134 H (74-99) mg/dL Calcium 8.3 L (8.4-10.2) mg/dL Microbiology - Last 24 Hours (Table) 10/01/18 10:42 Blood Culture - Preliminary Blood No Growth after 120 hours Assessment and Plan (1) Dysphagia Narrative/Plan: Continue tube feeds at goal. We'll sign off at this point. Please contact needed. Current Visit: Yes Status: Acute Code(s): R13.10 - DYSPHAGIA, UNSPECIFIED SNOMED Code(s): 92591996
[2018-10-06] MEDS ORDERED: guaiFENesin SYRUP 100MG/5ML 200 MG/10 ML CUP PO PRN (21:59)
[2018-10-07] MEDS: MORPHINE SULFATE 2 MG/ML SYRINGE IVP PRN ×2 (01:58→06:17)
[2018-10-07 07:02] LABS: Anion Gap 5 mmol/L; Blood Urea Nitrogen 21 mg/dL (9-20); Carbon Dioxide 31 mmol/L (22-30); Chloride 106 mmol/L (98-107); Glucose 102 mg/dL (74-99); Magnesium 1.8 mg/dL (1.6-2.3); Potassium 3.6 mmol/L (3.5-5.1); Sodium 142 mmol/L (137-145)
[2018-10-07] MEDS: IPRATROPIUM-ALBUTEROL 3 ML NEB INHALATION SCH ×2 (08:45→11:37)
[2018-10-07] MEDS: PANTOPRAZOLE 40 MG/10 ML VIAL IVP SCH (08:58)
[2018-10-07] MEDS: ENOXAPARIN 40 MG/0.4 ML SYRINGE SQ SCH (08:58)
[2018-10-07] MEDS: OLANZapine 5 MG TAB PO SCH (08:58)
[2018-10-07] MEDS: BACITRACIN 500 UNIT/GM OINT 28.4 GM TUBE TOPICAL SCH (08:59)
[2018-10-07] MEDS: TRIAMCINOLONE 0.1% CREAM 80 GM TUBE TOPICAL SCH (08:59)
[2018-10-07] MEDS: NYSTATIN 100,000UNIT/GM CREAM 30 GM TUBE TOPICAL SCH (08:59)
[2018-10-07] MEDS: CEPHALEXIN 500 MG CAP PO SCH (08:59)
--- NOTE | 2018-10-07 09:42 | P.PN ---
Subjective Progress Note Date: 10/07/18 This is a 62-year-old male seen in consultation because of severe acute kidney injury and hypernatremia from in admitted to swallow. He has laryngeal carcinoma. He was started on IV fluids as well as had a PEG tube placed and is being fed through it. Is tolerating tube feeding He is able to walk around He has no new complaints. Dysphagia has not changed. Objective - Vital Signs Vital signs: Vital Signs Temp 98 F 10/07/18 04:00 Pulse 86 10/07/18 09:00 Resp 20 10/07/18 04:00 BP 111/45 10/07/18 04:00 Pulse Ox 97 10/07/18 04:00 Intake & Output 10/06/18 10/07/18 10/07/18 18:59 06:59 18:59 Intake Total 720 720 Balance 720 720 Weight 86 kg Intake: Tube Feeding 720 720 Other: Voiding Method Toilet Toilet # Voids 1 1 On examination is awake alert oriented he is walking around HEENT exam no JVP neck is supple no facial asymmetry Lungs are clear to auscultation good air entry bilaterally Heart sounds are unremarkable for any murmur rub gallop Abdomen soft nontender Extremity exam was trace edema Neurologically awake alert oriented - Labs CBC & Chem 7: 10/04/18 06:10 10/07/18 06:03 Labs: Abnormal Lab Results - Last 24 Hours (Table) 10/07/18 Range/Units 06:03 Carbon Dioxide 31 H (22-30) mmol/L BUN 21 H (9-20) mg/dL Creatinine 0.65 L (0.66-1.25) mg/dL Glucose 102 H (74-99) mg/dL Calcium 8.0 L (8.4-10.2) mg/dL Microbiology - Last 24 Hours (Table) 10/01/18 10:42 Blood Culture - Preliminary Blood No Growth after 120 hours Assessment and Plan Assessment: Impression 1. Acute kidney injury from decreased intake and volume depletion, creatinine improved from 6.812 0.65 this morning. Currently on PEG feeding as well as IV fluids. 2. Hyponatremia secondary to acute kidney injury and reduced intake, resolved sodium is 142. 3. Bicarb is 31 this morning slightly high the cause of this metabolic alkalosis is possibly from respiratory acidosis but without blood gases difficult to be sure, 4. Laryngeal carcinoma. Patient with dysphagic. 5. Status post PEG placement tolerating feeding Recommendation 1. Stop the IV fluids watch labs. he may be discharged, to be followed up
[2018-10-07] MEDS: LIDOCAINE VISCOUS 2% 15 ML CUP MUCOUS MEM PRN (10:25)
[2018-10-07 10:37] VITALS: RESP 18
[2018-10-07 11:40] VITALS: PULSE 80
--- NOTE | 2018-10-07 12:18 | P.DS ---
Providers Date of admission: 10/01/18 12:07 Attending physician: Rusty Fairbanks Consults: 10/01/18 12:05 Consult Physician Urgent Consulting Provider: Columba Diaz Consult Reason/Comments: Acute renal failure Do you want consulting provider notified?: Yes 10/02/18 12:39 Consult Physician Routine Consulting Provider: Devin Orourke Consult Reason/Comments: throat cancer Do you want consulting provider notified?: Yes 10/04/18 08:06 Consult Physician Stat Consulting Provider: Mil Gilbert Consult Reason/Comments: peg tube insertion Do you want consulting provider notified?: Already Contacted 10/04/18 09:59 Consult Physician Routine Consulting Provider: Yossi Lyn Consult Reason/Comments: positive troponin Do you want consulting provider notified?: Yes Primary care physician: [facility] Course: On-call hospitalist covering Dr. Fairbanks is starting 10/04/2018 This is a pleasant 62 years old male with past medical history of throat cancer , COPD, hyperlipidemia, hypertension and is arthritis. He presents because of difficulty eating and drinking secondary to throat cancer for the last 2 months was depending only a liquid diet as the main meal and he states that he was going down regarding his general health. Patient was admitted with with acute kidney injury creatinine was 6.8 on admission and today is back to normal at 0.9 after he was started on IV fluid. Associated with hypernatremia which is resolved after it was treated with was entral and parenteral hydration, sodium on discharge was 142. Patient has mildly elevated troponin of 0.035. cardiology service evaluated the patient, his elevated troponin is tolerating a regular with no evidence of acute ischemic event the blood tester fowl cleared the patient for discharge. Oncology team also evaluated the patient for his laryngeal carcinoma and they wanted to see him in one week to resume his therapy. An appointment was made on 10/16/2018 and patient is in agreement with that at this time. Patient was cleared by all the consultants for discharge. Patient has PEG tube placed and start feeding yesterday and patient tolerated that well. The patient was complaining of from right scaly skin with tenderness, that is mild in his perineum around his anal orifice for 6-8 weeks , patient was started with apical antibiotics and oral antibiotics, no worsening or slight improvement. Patient was instructed to follow up with his PCP regarding this and other health issues and he agrees. physical exam Gen.: Patient alert awake and oriented X 3, NOT IN DISTRESS CVS: s1-s2, RRR, no murmur CHEST:bilateral CTA, no wheezing or crepitation Abdomen: Soft, no tenderness, no distention, positive bowel sounds. The red and scaly skin and the perineum around the anal orifice, stable. No purulent discharge Extremities: No leg edema or induration. Time spent more than 35 minutes Plan - Discharge Summary Discharge Rx Participant: No New Discharge Prescriptions: No Action Simvastatin [Zocor] 20 mg PO HS OLANZapine 15 mg PO HS Sertraline HCl [Zoloft] 50 mg PO HS Lisinopril/Hydrochlorothiazide [Zestoretic 20-25 mg Tablet] 1 tab PO HS HYDROcodone/APAP 5-325MG [[place] 5-325] 1 - 2 tab PO Q4-6H PRN 3 Days #36 tab PRN Reason: Pain fentaNYL 50MCG/HR PATCH [Duragesic 50MCG/HR] 50 mcg TOPICAL Q72H Docusate [Colace] 100 mg PO DAILY Discharge Medication List Simvastatin [Zocor] 20 mg PO HS 04/07/15 [History] Sertraline HCl [Zoloft] 50 mg PO HS 06/14/16 [History] HYDROcodone/APAP 5-325MG [[place] 5-325] 1 - 2 tab PO Q4-6H PRN 3 Days #36 tab [Rx] Docusate [Colace] 100 mg PO DAILY 10/01/18 [History] fentaNYL 50MCG/HR PATCH [Duragesic 50MCG/HR] 50 mcg TOPICAL Q72H 10/01/18 [ History] Bacitracin Oint 1 applic TOPICAL TID 7 Days #1 applic 10/07/18 [Rx] Cephalexin [Keflex] 500 mg PO TID 5 Days #10 cap 10/07/18 [Rx] Nystatin 100,000Unit/gm Cream [Mycostatin Cream] 1 applic TOPICAL TID 7 Days #1 applic 10/07/18 [Rx] OLANZapine [ZyPREXA] 15 mg PO DAILY #30 tab 10/07/18 [Rx] guaiFENesin SYRUP 100MG/5ML [Robitussin] 200 mg PO Q6H PRN 7 Days #1 bottle 11/ 10/18 [Rx] Follow up Appointment(s)/Referral(s): [facility], [NON-STAFF] - Jonathan Gifford DO [Primary Care Provider] - 10/11/18 10:15 am (Tuesday) [facility], [REFERRING] - Kalin Cates MD [STAFF PHYSICIAN] - 10/16/18 10:00 am (Please keep previous appointment.) Patient Instructions/Handouts: How to Use and Care for Your PEG Tube (DC) Activity/Diet/Wound Care/Special Instructions: Active [phone] -Tube Feeding-call before pt is DC'd so they know to deliver, also please call [facility] so they can meet pt at home and do tube feed instructions activity is limited till you see your doctor Discharge Disposition: HOME WITH HOME HEALTH SERVICES
[2018-10-07 13:02] VITALS: BP 135/86; TEMP 97.4
== END 2018-10-07 14:19 | disposition home health service (06) | DRG 682 ==
LOC: EC 10:02 → 3SCARD 12:07
PROVIDERS: ADMIT Hospitalist; ATTEND Hospitalist
PROC: 0DJ08ZZ Inspection of Upper Intestinal Tract, Via Natural or Artificial Opening Endoscopic (ICD-10-PCS; 2018-10-04)
PROC: 0DH68UZ Insertion of Feeding Device into Stomach, Via Natural or Artificial Opening Endoscopic (ICD-10-PCS; principal; 2018-10-04 08:50)
DX: N17.9 Acute kidney failure, unspecified (principal); R57.8 Other shock; J69.0 Pneumonitis due to inhalation of food and vomit; E87.0 Hyperosmolality and hypernatremia; E87.1 Hypo-osmolality and hyponatremia; L03.315 Cellulitis of perineum; E44.0 Moderate protein-calorie malnutrition; E87.4 Mixed disorder of acid-base balance; C32.1 Malignant neoplasm of supraglottis; R74.8 Abnormal levels of other serum enzymes; E78.5 Hyperlipidemia, unspecified; E86.1 Hypovolemia; E86.0 Dehydration; E87.6 Hypokalemia; F17.210 Nicotine dependence, cigarettes, uncomplicated; F20.9 Schizophrenia, unspecified; M15.9 Polyosteoarthritis, unspecified; I10 Essential (primary) hypertension; J44.9 Chronic obstructive pulmonary disease, unspecified; Z79.899 Other long term (current) drug therapy; Z79.891 Long term (current) use of opiate analgesic; K29.80 Duodenitis without bleeding; K29.70 Gastritis, unspecified, without bleeding; Z68.28 Body mass index [BMI] 28.0-28.9, adult; D53.9 Nutritional anemia, unspecified; F32.9 Major depressive disorder, single episode, unspecified; R13.10 Dysphagia, unspecified; T45.1X5A Adverse effect of antineoplastic and immunosuppressive drugs, initial encounter; Z92.3 Personal history of irradiation
CPT/HCPCS: 36415; 43246; 71046; 76770; 80048; 80053; 81001; 82550; 82553; 83605; 83735; 84484; 85025; 85610; 85730; 87040; 87086; 93005; 93306; 94640; 94760; 96361; 96374; 96375; 99285

== ENCOUNTER → 2018-12-23 | Outpatient (CLI) | payer MEDICARE, OTHER ==
--- NOTE | 2018-12-25 18:07 | PE ---
EXAMINATION TYPE: PET CT fusion skull to thigh DATE OF EXAM: 12/24/2018 CLINICAL HISTORY: 62-year-old male left-sided laryngeal cancer, restaging following chemotherapy and radiation therapy completed in October 2018. TECHNIQUE: Following the intravenous administration of 13.02 mCi of F-18 FDG, coned-down images of the head and neck followed by whole body images are performed from the skull base to the midthigh. I mages are reviewed on the computer in the coronal, axial, and sagittal planes. Reconstructed rotatin g images are created on independent workstation and reviewed on the computer. A localization and at tenuation correction CT is performed in conjunction with the PET scan. Glucose level: 98 mg/dL CTDI: 2.35 + 4.27 mGy DLP: 70.86 + 429.84 mGy/cm COMPARISON: 08/05/2018 FINDINGS: PET: Stable 2.2 cm left posterior upper back sebaceous cyst. This shows no abnormal hypermetabolism. There is new edematous change throughout the tissues of the upper neck with reticulation throughout t he subcutaneous fat. There is thickening of the aryepiglottic folds with effacement of the piriform s inuses and edema along the fascial planes of the strap musculature. Interval resolution of the previous abnormal hypermetabolism in the region of the left posterior clyde nx. Focal uptake, maximum SUV 5.8, is present along the anterior midline suggesting product of phonat ion. No suspicious FDG uptake within the neck. There is some focal patchy consolidation in the posterior left lower lobe on axial image 137, max SUV 2.8, and some adjacent 5 mm nodularity, axial image 139. Possible cavitary lesion measuring 1.4 cm left upper lobe on axial image 100 is new and demonstrates mild uptake, max SUV 2.2. Average liver is 2.1. 2.8 cm hypodense lesion posterior right kidney shows no FDG uptake suggestive of a cyst. Variable moderate uptake within the right side of the colon likely muscular activity. Otherwise, there is physiologic FDG uptake within the abdomen and pelvis. No dilated small bowel, free fluid, or free air. Moderate atherosclerotic calcifications infrarenal a bdominal aorta and iliac arteries. ATTENUATION CORRECTION CT: Excessive noise prevents adequate assessment of the intracranial space. There is no hydrocephalus or midline shift seen. Paranasal sinuses show mild mucosal thickening along the floor the left maxillary sinus. Rightward na garcía septal deviation. Mastoid air cells well pneumatized. No cervical lymphadenopathy. Heart normal size without pericardial effusion. Coronary vessel calcifications are present. Stable mi ld aneurysm ascending aorta 4.0 cm. Additional mild aneurysm upper descending thoracic aorta and 3.3 cm. Conventional arch vessel branching anatomy. No thoracic lymphadenopathy. No mesenteric or retroperitoneal lymphadenopathy. No pericolonic inflammatory change. Sigmoid diverti culosis. Mild circumferential bladder wall thickening. Prostate gland enlargement measuring 5.1 cm wide. No ab normal fluid collection in the pelvis or pelvic lymphadenopathy. Bones: Degenerative changes of the hips. Left L5 hemisacralization. Endplate spondylosis lower thorac ic spine. No osseous destructive process. IMPRESSION: 1. Complete metabolic response to the known left posterior laryngeal carcinoma. 2. Focal area of consolidation posterior left lower lobe with adjacent 5 mm nodularity. The consolida tion shows mild uptake. Pneumonia is suggested. 3. However, an additional 1.4 cm lesion in the left upper lobe also shows mild uptake, is new, and de monstrates some internal cavitation. Again, infectious etiology is favored including atypical fungal or mycobacterial infections. Further clinical correlation recommended. Close follow-up to exclude cav itary neoplasm. 4. Otherwise, no evidence for metastatic disease. 5. Incidental: Post radiation therapy changes in the neck, stable aneurysmal thoracic aorta measuring up to 4.0 cm, and sigmoid diverticulosis.
== END | disposition home or self-care (01) ==
LOC: RADPETMAIN 08:47
PROVIDERS: ATTEND Internal Medicine Hematology & Oncology
DX: C76.0 Malignant neoplasm of head, face and neck (principal); C32.9 Malignant neoplasm of larynx, unspecified; I71.2 Thoracic aortic aneurysm, without rupture; K57.30 Diverticulosis of large intestine without perforation or abscess without bleeding; J18.1 Lobar pneumonia, unspecified organism; R91.8 Other nonspecific abnormal finding of lung field; Z92.3 Personal history of irradiation
CPT/HCPCS: 78815; A9552

== ENCOUNTER → 2019-02-14 | Outpatient (CLI) | payer MEDICARE, OTHER ==
--- NOTE | 2019-02-14 10:05 | CT ---
EXAMINATION TYPE: CT chest w con DATE OF EXAM: 02/14/2019 COMPARISON: PET CT from 12/23/2018 HISTORY: abn CXR, larynx CA CT DLP: 331.1 mGycm. Automated Exposure Control for Dose Reduction was Utilized. TECHNIQUE: CT scan of the thorax is performed following with IV Contrast, patient injected with 100 mL of Isovue 300. FINDINGS: LUNGS: There is persistent scarring or scarlike opacity left upper lobe axial image 20 measuring 2.5 x 1.2 cm not significantly changed from most recent PET/CT without definitive hypermetabolic uptake. No new nodules or masses are present. There is linear scarring and/or atelectasis in the left lung ba se just above diaphragm redemonstrated. There is no pleural effusion or pneumothorax seen. The trach eobronchial tree is patent. MEDIASTINUM: There are no greater than 1 cm hilar or mediastinal lymph nodes. No cardiomegaly or pe ricardial effusion is seen. Coronary catheterization is redemonstrated which is noted marker for und erlying coronary artery disease. OTHER: There is simple appearing 2.9 cm cyst posteriorly upper to mid pole of the right kidney axial image 72. There is healing fracture posterior right 10th rib axial image 47. IMPRESSION: Stable scarlike opacity left upper lobe. This is new from PET/CT August 05, 2018 but no t significant change from most recent PET/CT. No definitive hypermetabolic uptake. Favor postinflamma tory change. This can be continued to be followed to ensure stability. No new nodules or masses ident ified.
== END | disposition home or self-care (01) ==
LOC: RADCTMAIN 08:47
PROVIDERS: ATTEND Internal Medicine Hematology & Oncology
DX: R91.8 Other nonspecific abnormal finding of lung field (principal); C32.9 Malignant neoplasm of larynx, unspecified
CPT/HCPCS: 71260; Q9967

== ENCOUNTER → 2019-02-23 | Outpatient (CLI) | payer MEDICARE, OTHER ==
--- NOTE | 2019-02-23 12:20 | CT ---
EXAMINATION TYPE: CT sinus wo con DATE OF EXAM: 02/23/2019 COMPARISON: CT neck 06/21/2018 HISTORY: Chronic sinusitis; dysphagia CT DLP: 655 mGycm. Automated Exposure Control for Dose Reduction was Utilized. TECHNIQUE: CT scan of the sinuses is performed without contrast, axial images are obtained, coronal r eformatted images are also reviewed. FINDINGS: The paranasal sinuses including the frontal, ethmoid, sphenoid, and maxillary sinuses bila terally are well-aerated with minimal soft tissue attenuation in the left maxillary sinus with mild c hronic sinusitis. The ostiomeatal complex is patent bilaterally on the coronal images. Visualized portion of mastoid air cells show no abnormal opacification. The globes are intact bilate rally. Nasal septal deviation. IMPRESSION: 1. Minimal changes of left maxillary chronic sinusitis. 2. Previously noted mass involving the supraglottic region is not included in the [id number].
--- NOTE | 2019-02-23 12:22 | FL ---
EXAMINATION TYPE: FL barium swallow w video DATE OF EXAM: 02/23/2019 MODIFIED SWALLOW / DEGLUTITION STUDY CLINICAL HISTORY: Dysphagia. 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 TECHNIQUE: Deglutition study is performed utilizing thin liquid barium, honey and nectar thick liqui d barium, barium thick applesauce, and barium coated cracker. A total of 50 seconds of fluoroscopic t bakari was utilized during procedure. 0 spot images are saved to PACS. COMPARISON: None. FINDINGS: The oral and pharyngeal phases show satisfactory initiation and propagation with all modali ties tested. Satisfactory mastication is seen with solid modalities tested. There is no evidence of penetration or aspiration with any modality tested. No significant pharyngeal residue was appreciate d. IMPRESSION: No penetration or aspiration observed. Please refer to speech therapist notes for furthe r details if necessary.
== END | disposition home or self-care (01) ==
LOC: RADCTMAIN 11:04
PROVIDERS: ATTEND Otolaryngology
DX: J32.0 Chronic maxillary sinusitis (principal); R13.10 Dysphagia, unspecified
CPT/HCPCS: 70486; 74230

== ENCOUNTER → 2019-06-04 | Outpatient (CLI) | payer MEDICARE, OTHER ==
--- NOTE | 2019-06-04 14:55 | CT ---
EXAMINATION TYPE: CT chest w con DATE OF EXAM: 06/04/2019 COMPARISON: 02/14/2019 HISTORY: Malignant neoplasm of larynx CT DLP: 593 mGycm, Automated exposure control for dose reduction was used. CONTRAST: Performed injected with 100 mL of Isovue 300. TECHNIQUE: Axial images were obtained at 5 mm thick sections. Reconstructed images are reviewed on [employer] computer in the coronal plane. FINDINGS: Inferior Portion of the thyroid visualized is normal. Hypopharynx appears normal Surrounding less opacity or pneumonitis change within the left midlung which was present previously. No interval increase in size is evident. No enlarged mediastinal or hilar adenopathy is evident. The ascending aorta diameter at the level o f the main pulmonary artery is 4.7 cm. The main pulmonary artery diameter at the bifurcation is 2.9 cm. Coronary artery calcification is present. Limited CT sections are obtained through the upper abdomen. Abdomen is essentially unremarkable. IMPRESSIONS: 1. No suspicious abnormality to suggest metastatic disease. 2. Groundglass opacity within the left midlung present previously. 3. Stable ascending thoracic aortic aneurysm.
== END | disposition home or self-care (01) ==
LOC: RADCTMAIN 08:33
PROVIDERS: ATTEND Internal Medicine Hematology & Oncology
DX: Z03.89 Encounter for observation for other suspected diseases and conditions ruled out (principal); C32.9 Malignant neoplasm of larynx, unspecified; R91.8 Other nonspecific abnormal finding of lung field; I71.2 Thoracic aortic aneurysm, without rupture
CPT/HCPCS: 71260; Q9967

== ENCOUNTER → 2019-12-14 | Outpatient (CLI) | payer MEDICARE, OTHER ==
--- NOTE | 2019-12-14 17:50 | CT ---
EXAMINATION TYPE: CT neck chest w con DATE OF EXAM: 12/14/2019 COMPARISON: PET/CT 12/23/2018 HISTORY: larynx CA CT DLP: 1397 mGycm CONTRAST: Patient injected with 100 mL of Isovue 300. TECHNIQUE: Axial images at 3 mm thick sections. Reconstructed images in the coronal plane and sagitt al plane are reviewed. FINDINGS: Limited CT sections are obtained the lung apices. The lung apices appear clear. CT neck: The torus tubarius and fossa of Rosenmuller are normal. Administrative Assistant Receptionist spaces are normal. Ther e is mucosal thickening within the bilateral maxillary sinuses. Small amount fluid may be within the dependent portions of the maxillary sinuses. Remaining paranasal sinuses appear clear. Mastoid air ce lls are clear Parotid glands appear normal and symmetrical. Submandibular glands, are normal. Parapharyngeal spac es are normal. No suspicious adenopathy is evident. There is fullness through the supraglottic region on the right. This is effacing the airway. Vocal co rd level cannot be well evaluated. Subglottic airway appears normal. Findings are developing from the 12/23/2018 comparison PET/CT. Thyroid as visualized is normal. Degenerative disc changes are present within the cervical spine. IMPRESSIONS: 1. Fullness within the right hypopharynx below the epiglottis effacing the airway. Findings can be co mpatible with the patient's laryngeal carcinoma. EXAMINATION TYPE: CT neck chest w con DATE OF EXAM: 12/14/2019 COMPARISON: 06/04/2019 CT chest HISTORY: larynx CA CT DLP: 1397 mGycm, Automated exposure control for dose reduction was used. CONTRAST: Performed injected with 100 mL of Isovue 300. TECHNIQUE: Axial images were obtained at 5 mm thick sections. Reconstructed images are reviewed on [employer] computer in the coronal plane. FINDINGS: Portion of the thyroid visualized is normal. There is some vague pneumonitis change within the left upper lung field. Series 9 image 20. This area appears stable from comparison. There is some vague increased lung markings in the posterior right u pper lung field which is an interval change. Findings are nonspecific. Posterior lateral to the upper trachea within the medial right apex is a 2.1 x 1.4 cm nodule with a h ypodense center suspicious for metastatic lesion within the right lung. Repeat PET/CT is recommended for additional evaluation of this area. No enlarged mediastinal or hilar adenopathy is evident. The ascending aorta diameter at the level o f the main pulmonary artery is 4.5 cm. The main pulmonary artery diameter at the bifurcation is 2.9 cm. Coronary artery calcification is present. Limited CT sections are obtained through the upper abdomen. Abdomen is essentially unremarkable. IMPRESSIONS: 1. 2.1 x 1.4 cm mass medial right apex suspicious for metastatic lesion. PET CT is recommended for ad ditional evaluation.
== END | disposition home or self-care (01) ==
LOC: RADCTMAIN 08:34
PROVIDERS: ATTEND Internal Medicine Hematology & Oncology
DX: R91.8 Other nonspecific abnormal finding of lung field (principal); C32.9 Malignant neoplasm of larynx, unspecified
CPT/HCPCS: 70491; 71260; Q9967

== ENCOUNTER → 2019-12-22 | Outpatient (CLI) | payer MEDICARE, OTHER ==
--- NOTE | 2019-12-25 14:40 | PE ---
Nuclear medicine PET/CT HISTORY: Head and neck cancer, subsequent Patient received 11.8 mCi F-18 FDG intravenously. Small bnyqg-ci-lecf imaging obtained through the he ad and neck, scanning was performed through the mid thighs from the skull base level. Localization an d attenuation correction CT scan was performed. Correlation to prior CT neck 12/14/2019, CT chest 06/04/2019, prior PET/CT 12/23/2018 Neck and chest: The abnormal density seen in the right upper lobe adjacent to the mediastinum seen on prior CT Shows associated hypermetabolic uptake and measures approximately 2.1 cm in greatest transverse dimen malia, SUV 10.6. There is no evident supraclavicular or cervical adenopathy. There is some soft tissue fullness in the region of the aryepiglottic fold on the left, there is some associated hypermetabolic uptake, SUV 5.6. Fullness of the soft tissue in the region of the piriform sinus on the right is noted similar to prior exam. No cervical or supraclavicular adenopathy. Possible mucus retention cysts or polyps within the maxillary sinuses. No mediastinal, axillary, or h ilar adenopathy. Coronary artery calcification is present. No pleural or pericardial effusion. ABDOMEN: There is no liver mass or adrenal mass. No retroperitoneal adenopathy or suspicious hypermet abolic uptake. Osseous structures: There is abnormal uptake associated with the posterior right 11th rib which is an interval finding with associated rib fracture. No other significant interval change. IMPRESSION: Recommend direct visualization to exclude recurrence in the region of the pharyngeal soft tissues. Possible metastatic disease or bronchogenic carcinoma right upper lobe. Abnormal uptake ass ociated with the posterior right ninth rib.
== END ==
LOC: RADPETMAIN 10:22
PROVIDERS: ATTEND Internal Medicine Hematology & Oncology
DX: C32.8 Malignant neoplasm of overlapping sites of larynx (principal)
CPT/HCPCS: 78815; A9552

== ENCOUNTER 2019-12-25 08:39 | Day surgery (SDC) | payer MEDICARE, OTHER ==
[2019-12-25 09:37] LABS: Mean Platelet Volume 6.9; Platelet Count 298 k/uL (150-450)
[2019-12-25 09:41] LABS: INR 0.9 (<1.2); Prothrombin Time 9.9 sec (9.0-12.0)
[2019-12-25] MEDS ORDERED: ALPRAZolam 0.5 MG TAB PO STA (09:43)
[2019-12-25 10:19] VITALS: RESP 18
[2019-12-25] MEDS ORDERED: HYDROmorphone 0.5 MG/0.5 ML SYRINGE IVP STA (11:07)
--- NOTE | 2019-12-25 11:52 | XR ---
EXAMINATION TYPE: XR chest 1V portable DATE OF EXAM: 12/25/2019 COMPARISON: Prior chest x-ray 10/01/2018 HISTORY: Pneumothorax status post right lung biopsy TECHNIQUE: Single frontal view of the chest is obtained. FINDINGS: Moderate right-sided pneumothorax is present. No evident effusion. Patient slightly rotate d. Abnormal density in the left upper lobe is no longer seen, minimal stranding is present at this le sondra. IMPRESSION: Moderate right sized pneumothorax status post lung biopsy.
--- NOTE | 2019-12-25 12:26 | XR ---
EXAMINATION TYPE: XR chest 1V portable DATE OF EXAM: 12/25/2019 COMPARISON: PET/CT dated 12/14/2019 HISTORY: Right-sided chest tube placement status post right-sided lung biopsy TECHNIQUE: Single frontal view of the chest is obtained. FINDINGS: The right lung nodule along the paratracheal space in the right lung apex is not well visu alized on x-ray marked by the arrow. Right-sided thoracostomy tube is positioned appropriately. Trace right apical pneumothorax is estimated at 5%. No left-sided pneumothorax. Left upper lobe parenchyma l scarring. Cardiomediastinal silhouette is slightly rotated. No new focal consolidation or pleural e ffusion. IMPRESSION: Trace right apical pneumothorax status post right upper lobe lung biopsy. Appropriately placed thoracostomy tube.
[2019-12-25 12:41] VITALS: PULSE 84
[2019-12-25 13:36] VITALS: BP 140/76
--- NOTE | 2019-12-25 15:10 | CT ---
EXAMINATION TYPE: CT chest tube insertion DATE OF EXAM: 12/25/2019 COMPARISON: Lung biopsy 12/25/2019, chest x-ray 12/25/2019 CT DLP: 650 mGycm Automated exposure control for dose reduction was used. HISTORY: Pneumothorax right hemithorax status post lung biopsy. PROCEDURE:The anterior second intercostal space was localized using CT and the skin overlying was pre pped and draped and Lidocaine used for local anesthesia, skin zulma made with a scalpel. Using trocar technique a 9-Niuean catheter was introduced into the pleural space. Catheter was fixed to the skin and a sterile dressing placed. Catheter was attached to one-way valve. Hemostasis achieved. Patie nt remained in stable condition. Post procedure chest x-ray shows the tube in appropriate position w ith decreased size of the pneumothorax. Maximal barrier technique was utilized. IMPRESSION: Status post CT chest tube insertion right chest. This procedure performed by the lydia costa
--- NOTE | 2019-12-25 15:30 | CT ---
EXAMINATION TYPE: CT biopsy lung RT DATE OF EXAM: 12/25/2019 HISTORY: Right lung mass, history of head and neck cancer COMPARISON: Nuclear medicine PET/CT 12/22/2019 Maximal barrier technique was utilized. The skin overlying a suitable path to the lesion was localiz ed using CT and the overlying skin was prepped and draped. Lidocaine used for local anesthesia. A s kin zulma made with a scalpel. Using CT guidance, access was gained to the lesion with a 20-gauge cor e needle coaxially through a 19-gauge guide. For specimen submitted to cytology. 2 passes were perfo rmed in all. Following the procedure pneumothorax was noted with some local hemorrhage. Patient royal ined in stable condition. Hemostasis achieved. Postprocedure chest x-ray pending. IMPRESSION: SUCCESSFUL CT GUIDED CORE BIOPSY right upper lobe lung mass. PATHOLOGY PENDING. THIS PROCEDURE WAS PERFORMED BY THE UNDERSIGNED. Postprocedural pneumothorax.
== END 2019-12-25 14:30 | disposition home or self-care (01) ==
LOC: RADPROMAIN 08:39 → 5NMEDONC 11:11 → UNDOADMIN 11:11 → RADPROMAIN 14:30
PROVIDERS: ATTEND Internal Medicine Hematology & Oncology
DX: C34.91 Malignant neoplasm of unspecified part of right bronchus or lung (principal); J95.811 Postprocedural pneumothorax
CPT/HCPCS: 88305; 85049; 85610; 88342; 88341; 71045; 36415; 32405; 77012; 32551; J1170

== ENCOUNTER → 2020-02-18 | Outpatient (CLI) | payer MEDICARE, OTHER ==
--- NOTE | 2020-02-18 09:08 | XR ---
EXAMINATION TYPE: XR chest 2V DATE OF EXAM: 02/18/2020 COMPARISON: 12/25/2019 HISTORY: Lung mass. Recent pneumothorax. TECHNIQUE: Frontal and lateral views of the chest are obtained. FINDINGS: Right thoracostomy tube has been removed. Right apical pneumothorax continues to resolve a nd is less than 5%. Subsegmental strand-like atelectasis at the lung bases. Platelike scarring or ate lectasis of the left upper lung. Cardiomediastinal silhouette is stable. No new pleural effusion. No acute osseous process. IMPRESSION: Continued resolution of the previously seen trace right apical pneumothorax, subtly visu alized. Scattered areas of subsegmental atelectasis.
== END | disposition home or self-care (01) ==
LOC: RADXRMAIN 08:52
PROVIDERS: ATTEND Thoracic Surgery (Cardiothoracic Vascular Surgery)
DX: J98.11 Atelectasis (principal)
CPT/HCPCS: 71046

== ENCOUNTER → 2020-03-27 | Outpatient (CLI) | payer MEDICARE, OTHER ==
--- NOTE | 2020-03-27 10:43 | CT ---
EXAMINATION TYPE: CT soft tissue neck w con DATE OF EXAM: 03/27/2020 HISTORY: Recurrent laryngeal cancer. COMPARISON: CT neck December 14, [address] June 21, 2018. PET/CT December 22, 2019 CT DLP: 550.7 mGycm. Automated Exposure Control for Dose Reduction was Utilized. TECHNIQUE: CT scan of the neck is performed with IV Contrast, patient injected with 100 mL of Isovue M300, axial images are obtained, coronal and sagittal reformatted images are reviewed. FINDINGS: Airway: Background mild underlying emphysematous change with interval surgery and medial right upper lung scarring. Airway grossly patent. No obvious mass with correlation to recent PET/CT. Asymmetric l eft-sided increased calcification or ossification at level of the false vocal cords just superior to this axial image 124 is redemonstrated. On current study there is persistent hypodense tissue or poss ible fluid filling the right piriform sinus axial image 144 at level of inferior hyoid bone, this is more prominent from PET/CT axial image 52 where there was not significant hypermetabolic uptake. Clin ical correlation advised. Parotid/submandibular glands: No gross abnormality seen. Carotid/Vascular Structures: Krhk-wf-[id number] calcified plaque bilateral carotid bulb level. Osseous Structures: Loss of normal cervical curvature with multilevel disc space narrowing and spurri ng greatest C3-C4, C5-C6, and C6-C7 levels. Multilevel uncovertebral facet degenerative changes seen on axial images. Other: No obvious new suspicious greater than 1 cm neck adenopathy. Near complete opacification of left maxillary sinus on current study with mild to moderate eccentric mucosal thickening in the right maxillary sinus. Nasal septum is deviated to right of midline. IMPRESSION: Asymmetric filling of right piriform sinus slightly more prominent from PET/CT without hy permetabolic uptake noted at this level on PET/CT. Correlate clinically and with results of presumed interval direct visualization. No obvious mass or suspicious adenopathy on current study otherwise.
== END | disposition home or self-care (01) ==
LOC: RADCTMAIN 10:02
PROVIDERS: ATTEND Otolaryngology
DX: C32.9 Malignant neoplasm of larynx, unspecified (principal)
CPT/HCPCS: 70491; Q9967

== ENCOUNTER 2020-05-21 06:58 | Day surgery (SDC) | payer MEDICARE, OTHER ==
[2020-05-19 11:20] VITALS: BMI 31.0
[~2020-05-21 06:58] MED LIST changes: -DEXAMETHASONE SOD PHOSPHATE 10 MG/ML 1 ML VIAL IV ONE; -DEXAMETHASONE SOD PHOSPHATE 4 MG/ML 1 ML VIAL IV ONE; -FAMOTIDINE 20 MG/2 ML VIAL IV ONE; -HYDROmorphone 0.5 MG/0.5 ML SYRINGE IVP PRN; +LACTATED RINGERS 1,000 ML IV SCH; -ONDANSETRON 4 MG/2 ML VIAL IVP ONE; -OXYMETAZOLINE 0.05% NASL SPRAY 1 SPRAY BOTTLE NASAL ONE; -ceFAZolin IN SWFI 2 GM/20 ML SYRINGE IVP ONE
[2020-05-21 07:25] VITALS: RESP 16; TEMP 97.3
[2020-05-21] MEDS ORDERED: LIDOCAINE 1% (10MG/ML) FOR IV START INTRADERMA ONE (07:34)
[2020-05-21] MEDS ORDERED: PROPOFOL 10 MG/ML 20 ML VIAL IV ONE (07:53)
[2020-05-21] MEDS ORDERED: LIDOCAINE 1% INJ 10MG/ML (20 ML MDV) ONE (07:53)
--- NOTE | 2020-05-21 07:58 | P.GSHP ---
History of Present Illness H&P Date: 05/21/20 CHIEF COMPLAINT: Colon screen HISTORY OF PRESENT ILLNESS: The patient is a 64-year-old male who presents for colon screen. Lower endoscopy was offered for further evaluation and management. PAST MEDICAL HISTORY: Please see list. PAST SURGICAL HISTORY: Please see list. MEDICATIONS: Please see list. ALLERGIES: Please see list. SOCIAL HISTORY: No illicit drug use FAMILY HISTORY: No reports of Crohn disease or ulcerative colitis. REVIEW OF ORGAN SYSTEMS: CONSTITUTIONAL: No reports of fevers or chills. PHYSICAL EXAM: VITAL SIGNS: Stable GENERAL: Well-developed pleasant in no acute distress. HEENT: No scleral icterus. Extraocular movements grossly intact. Moist buccal mucosa. NECK: Supple without lymphadenopathy. CHEST: Unlabored respirations. Equal bilateral excursions. CARDIOVASCULAR: Regular rate and rhythm. Distal 2+ pulses. ABDOMEN: Soft, nontender, nondistended. MUSCULOSKELETAL: No clubbing, cyanosis, or edema. ASSESSMENT: 1. Colon screen. PLAN: 1. Recommend proceeding with a lower endoscopy Past Medical History Past Medical History: Cancer, COPD, Hyperlipidemia, Hypertension, Osteoarthritis (OA), Thyroid Disorder Additional Past Medical History / Comment(s): hx. throat cancer, chemo/radiation >1 year ago, recently re-started chemo-has had 2 tx's., will be re-starting radiation soon, cologard positive recently History of Any Multi-Drug Resistant Organisms: None Reported Past Surgical History: Orthopedic Surgery Additional Past Surgical History / Comment(s): right shoulder surgery, right lung resection @[facility] @beginning of year Past Anesthesia/Blood Transfusion Reactions: No Reported Reaction Additional Past Anesthesia/Blood Transfusion Reaction / Comment(s): no previous blood transfusion Smoking Status: Current every day smoker - Past Family History Mother Family Medical History: Deep Vein Thrombosis (DVT) Medications and Allergies Home Medications Medication Instructions Recorded Confirmed Type Simvastatin [Zocor] 20 mg PO HS 04/07/15 05/21/20 History Sertraline HCl [Zoloft] 50 mg PO HS 06/14/16 05/19/20 History Levothyroxine Sodium 50 mcg PO DAILY 12/19/19 05/19/20 History Lisinopril [Prinivil] 5 mg PO DAILY 12/19/19 05/19/20 History OLANZapine [ZyPREXA] 15 mg PO HS 12/19/19 05/19/20 History amLODIPine [Norvasc] 10 mg PO DAILY 12/19/19 05/19/20 History Allergies Allergy/AdvReac Type Severity Reaction Status Date / Time No Known Allergies Allergy Verified 05/19/20 11:16 Surgical - Exam Vital Signs Temp Pulse Resp BP Pulse Ox 97.3 F L 98 16 129/89 98 05/21/20 07:23 05/21/20 07:23 05/21/20 07:23 05/21/20 07:23 05/21/20 07:23
--- NOTE | 2020-05-21 08:22 | P.PCN ---
Date of Procedure: 05/21/20 Description of Procedure: PREOPERATIVE DIAGNOSIS: Colonoscopy screening POSTOPERATIVE DIAGNOSIS: Colonoscopy screening Tubular adenoma transverse colon Sigmoid diverticulosis, severe Ascending colon polyp OPERATION: Colonoscopy to the ileocecal valve and appendiceal orifice, cecum Colonoscopy with hot snare polypectomy SURGEON: Dipika Rankin MD. ANESTHESIA: MAC. INDICATIONS: The patient is an 64-year-old male who presents for screening colonoscopy. Last colonoscopy over 5 years. Benefits and risks were described and informed consent was obtained. DESCRIPTION OF PROCEDURE: The patient had undergone Suprep. He had been brought into the operating room and laid in the left lateral decubitus position. After adequate intravenous sedation, the rectum was examined with 2% lidocaine jelly. The prostate fossa was unremarkable. No external hemorrhoids were encountered. The rectal tone was within normal limits. No lesions were palpated in the rectal vault. An Olympus colonoscope was advanced until the cecum, ileocecal valve and appendiceal orifice were clearly viewed. The colon was redundant of the sigmoid including splenic flexure were abdominal pressure was obtained. The prep was good. Sigmoid diverticulosisw, severe as encountered. Ascending colonic polyp was snare polypectomy. No evidence of focal colitis was found. Retroflexion of the scope demonstrated grade 1 internal hemorrhoids without active bleeding or inflammation. The colon was desufflated. The patient had tolerated the procedure well. Withdrawal time was over 6 minutes. FINDINGS: Aronchick preparation quality scale 2 (1-5) Internal hemorrhoids, grade 1 No external hemorrhoids No arteriovenous malformations. Sigmoid diverticulosis, moderate to severe Removal of 1 polyps: - Snare polypectomy mid ascending colon, 5 mm tubulovillous adenoma polyp and fluid-filled No focal colitis. RECOMMENDATIONS: Repeat colonoscopy in 5 years, 2024 Plan - Discharge Summary Discharge Rx Participant: No New Discharge Prescriptions: Continue Simvastatin [Zocor] 20 mg PO HS Sertraline HCl [Zoloft] 50 mg PO HS amLODIPine [Norvasc] 10 mg PO DAILY Lisinopril [Prinivil] 5 mg PO DAILY Levothyroxine Sodium 50 mcg PO DAILY OLANZapine [ZyPREXA] 15 mg PO HS Discharge Medication List Simvastatin [Zocor] 20 mg PO HS 04/07/15 [History] Sertraline HCl [Zoloft] 50 mg PO HS 06/14/16 [History] Levothyroxine Sodium 50 mcg PO DAILY 12/19/19 [History] Lisinopril [Prinivil] 5 mg PO DAILY 12/19/19 [History] OLANZapine [ZyPREXA] 15 mg PO HS 12/19/19 [History] amLODIPine [Norvasc] 10 mg PO DAILY 12/19/19 [History] Follow up Appointment(s)/Referral(s): Dipika Rankin MD [STAFF PHYSICIAN] - As Needed Patient Instructions/Handouts: *Surgery [facility] - (Anesthesia) Endoscopy Discharge Instructions, Colonoscopy (DC), Diverticulosis Diet (GEN), Diverticulosis (GEN), Colorectal Polyps (DC) Discharge Disposition: HOME SELF-CARE
[2020-05-21 08:35] VITALS: BP 126/86; PULSE 99
== END 2020-05-21 08:54 | disposition home or self-care (01) ==
LOC: ORWHC2ENDO 06:58
PROVIDERS: ATTEND Surgery Plastic and Reconstructive Surgery
DX: Z12.11 Encounter for screening for malignant neoplasm of colon (principal); K63.5 Polyp of colon; K57.30 Diverticulosis of large intestine without perforation or abscess without bleeding; K64.0 First degree hemorrhoids; J44.9 Chronic obstructive pulmonary disease, unspecified; E78.5 Hyperlipidemia, unspecified; F17.210 Nicotine dependence, cigarettes, uncomplicated; Z92.3 Personal history of irradiation; Z92.21 Personal history of antineoplastic chemotherapy; I10 Essential (primary) hypertension; M19.90 Unspecified osteoarthritis, unspecified site; E07.9 Disorder of thyroid, unspecified; Z85.118 Personal history of other malignant neoplasm of bronchus and lung; Z85.21 Personal history of malignant neoplasm of larynx; Z90.2 Acquired absence of lung [part of]; Z98.890 Other specified postprocedural states; Z82.49 Family history of ischemic heart disease and other diseases of the circulatory system; Z97.2 Presence of dental prosthetic device (complete) (partial); Z79.890 Hormone replacement therapy; Z79.899 Other long term (current) drug therapy
CPT/HCPCS: 88305; 45385; J2001; J2704

== ENCOUNTER 2020-12-13 20:00 | Inpatient (IN) | payer MEDICARE, OTHER ==
[2020-12-13 20:17] LABS: Glucose,Whole Blood 327 mg/dL (75-99)
[2020-12-13 20:21] LABS: Anisocytosis Slight; Basophils # (A) 0.1 k/uL (0-0.2); Basophils % (A) 1 %; Eosinophils % (A) 0 %; HCT 31.4 % (39.0-53.0); HGB 10.2 gm/dL (13.0-17.5); Lymphocytes % (A) 9 %; MCH 30.1 pg (25.0-35.0); MCHC 32.6 g/dL (31.0-37.0); MCV 92.3 fL (80.0-100.0); Mean Platelet Volume 6.8; Monocytes # (A) 0.5 k/uL (0-1.0); Monocytes % (A) 4 %; Neutrophils # (A) 9.7 k/uL (1.3-7.7); Neutrophils % (A) 86 %; Platelet Count 259 k/uL (150-450); WBC 11.3 k/uL (3.8-10.6)
[2020-12-13] MEDS ORDERED: SODIUM CHLORIDE 0.9% 1,000 ML IV STA (20:24)
[2020-12-13 20:26] LABS: ALT 43 U/L (4-49); AST 73 U/L (17-59); African American GFR (CKD) >90 (>60 ml/min/1.73 sqM); Albumin 3.8 g/dL (3.5-5.0); Alkaline Phosphatase 102 U/L (38-126); Anion Gap 16 mmol/L; Blood Urea Nitrogen 26 mg/dL (9-20); Calcium 7.5 mg/dL (8.4-10.2); Carbon Dioxide 24 mmol/L (22-30); Chloride 76 mmol/L (98-107); Glucose 314 mg/dL (74-99); Magnesium 2.7 mg/dL (1.6-2.3); Non-African American GFR(CKD) >90 (>60 ml/min/1.73 sqM); Potassium 4.8 mmol/L (3.5-5.1); Total Bilirubin 0.5 mg/dL (0.2-1.3); Total Protein 6.2 g/dL (6.3-8.2)
[2020-12-13 20:39] LABS: Sodium 116 mmol/L (137-145)
[2020-12-13] MEDS ORDERED: SODIUM CHLORIDE 0.9% 1,000 ML IV ONE (20:41)
--- NOTE | 2020-12-13 20:41 | XR ---
EXAMINATION TYPE: XR chest 1V portable DATE OF EXAM: 12/13/2020 COMPARISON: 02/18/2020. HISTORY: Tube placement. TECHNIQUE: Single frontal view of the chest is obtained. FINDINGS: There is insertion of a tracheostomy tube with tip overlying the proximal intrathoracic tr achea. There is an enteric tube coursing below the diaphragm and tip overlying the stomach. There are moderate perihilar opacities. No, pleural effusion, or pneumothorax seen. The cardiac silhouette si ze is within normal limits. The osseous structures are intact. IMPRESSION: Perihilar opacities, concerning for infiltrates. Support apparatus as above.
[2020-12-13 20:44] LABS: Allen Test Performed? Yes
[2020-12-13 20:45] LABS: ABG PO2 133 mmHg (83-108)
[2020-12-13 20:46] LABS: ABG Base Excess -8.6 mmol/L; ABG HCO3 22 mmol/L (21-25); ABG TCO2 24 mmol/L (19-24)
[2020-12-13 20:46] LABS: Amphetamine Screen,Urine Not Detected (NotDetected); Appearance,Urine Clear (Clear); Barbiturate Screen,Urine Not Detected (NotDetected); Benzodiazepines Screen,Urine Not Detected (NotDetected); Bilirubin,Urine Negative (Negative); Blood,Urine Trace (Negative); Cocaine Screen,Urine Not Detected (NotDetected); Color,Urine Light Yellow; Glucose,Urine (UA) Negative (Negative); Ketones,Urine Negative (Negative); Leukocyte Esterase,Urine Negative (Negative); Methadone Screen, Urine Not Detected (NotDetected); Nitrite,Urine Negative (Negative); Opiate Screen,Urine Not Detected (NotDetected); Oxycodone Screen, Urine Not Detected (NotDetected); PH, Urine 6.5 (5.0-8.0); Phencyclidine Screen,Urine Not Detected (NotDetected); Protein,Urine 1+ (Negative); RBC,Urine 5 /hpf (0-5); Specific Gravity,Urine 1.015 (1.001-1.035); Tricyclic Antidepressant,Urine Not Detected (NotDetected); Urn Cannabinoid Scrn Not Detected (NotDetected); Urobilinogen,Urine <2.0 mg/dL (<2.0); WBC,Urine 3 /hpf (0-5)
--- NOTE | 2020-12-13 20:49 | ED ---
CPR HPI - General Chief Complaint: Cardiac Arrest/CPR Stated Complaint: Cardiac arrest Time Seen by Provider: 12/13/20 20:00 Source: EMS Mode of arrival: EMS Limitations: altered mental status, physical limitation - History of Present Illness Initial Comments: Patient is a 64-year-old male with past history of laryngeal cancer status post laryngectomy, COPD, hypertension who presents to the emergency department as a cardiac arrest. It was originally reported that the patient sustained a fall in the bathroom and went to check on him. He was found down on the ground. She called EMS. Patient had a downtime approximately 10 minutes before EMS arrived and found the patient to be in PEA. He was given one dose of epinephrine and 5 minutes of compressions. They did obtain a ROSC. Patient was being bagged through what they thought was a trach. Patient maintained his pulse for a few minutes however they did loose pulses once again. An additional round of CPR was performed and a second dose of epinephrine was given. ROSC was achieved again. Total downtime for EMS was 10 minutes. They report that he has a history of laryngeal cancer. Denies that he undergoing any chemo or radiation. The remainder of the HPI was limited. When does arrive to the hospital she states that the patient had a laryngectomy at [facility] in August. He was hospitalized and went to rehab afterwards. He has been home for a month. He had a Dobbhoff placed one week ago for which the patient is receiving supplementation. He is supposed to eat food by mouth however she states he has poor oral intake. She states for the past 2 weeks he has not been himself. He has been generally weak. She denies any was having any chest pain or shortness of breath. No nausea or vomiting. The patient does not have a cardiac history. No report of any abdominal pain. No other alleviating, precipitating or modifying factors - Related Data Home Medications Medication Instructions Recorded Confirmed Simvastatin [Zocor] 20 mg PO HS 04/07/15 12/13/20 amLODIPine [Norvasc] 10 mg PO DAILY 12/19/19 12/13/20 lisinopriL [Prinivil] 5 mg PO DAILY 12/19/19 12/13/20 ALPRAZolam [Xanax] 0.25 mg PO DAILY PRN 12/13/20 12/13/20 HYDROcodone/APAP 5-325MG [[place] 1 tab PO Q4H PRN 12/13/20 12/13/20 5-325] Levothyroxine Sodium [Synthroid] 75 mcg PO DAILY 12/13/20 12/13/20 OLANZapine [ZyPREXA] 15 mg PO HS 12/13/20 12/13/20 Ondansetron [Zofran ODT] 4 mg PO Q8H PRN 12/13/20 12/13/20 Sertraline [Zoloft] 50 mg PO HS 12/13/20 12/13/20 Allergies Allergy/AdvReac Type Severity Reaction Status Date / Time No Known Allergies Allergy Verified 12/13/20 21:50 Review of Systems ROS Statement: Those systems with pertinent positive or pertinent negative responses have been documented in the HPI. ROS Other: All systems not noted in ROS Statement are negative. Past Medical History Past Medical History: Cancer, COPD, Hyperlipidemia, Hypertension, Osteoarthritis (OA), Thyroid Disorder Additional Past Medical History / Comment(s): hx. throat cancer, chemo/radiation >1 year ago, recently re-started chemo-has had 2 tx's., will be re-starting radiation soon, cologard positive recently History of Any Multi-Drug Resistant Organisms: None Reported Past Surgical History: Orthopedic Surgery Additional Past Surgical History / Comment(s): right shoulder surgery, right lung resection @[facility] @beginning of year Past Anesthesia/Blood Transfusion Reactions: No Reported Reaction Additional Past Anesthesia/Blood Transfusion Reaction / Comment(s): no previous blood transfusion Past Psychological History: Anxiety, Schizophrenia Smoking Status: Unknown if ever smoked Past Alcohol Use History: Occasional Past Drug Use History: None Reported - Past Family History Mother Family Medical History: Deep Vein Thrombosis (DVT) General Exam Limitations: altered mental status, physical limitation General appearance: other (unresponsive to painful stimuli) Head exam: Present: atraumatic, normocephalic, normal inspection Pupils: Present: mydriatic (5 mm, nonreactive) Neck exam: Present: other (trumpet in middle of neck with large stoma. not actively bleeding) Respiratory exam: Present: other (no spontaneous respirations. Coarse breath sounds when bagged) Cardiovascular Exam: Present: normal rhythm, tachycardia GI/Abdominal exam: Present: soft, normal bowel sounds. Absent: distended, tenderness, guarding, rebound, rigid Neurological exam: Present: other (no reponse to painful stimuli) Skin exam: Present: pallor, other (cool) Course Vital Signs 12/13/20 12/13/20 12/13/20 20:02 20:15 20:20 Temperature Pulse Rate 105 H 74 Pulse Rate [ 114 H Fruit Sprayer ] Respiratory 12 16 Rate Blood Pressure 144/85 147/85 O2 Sat by Pulse 86 L 88 L Oximetry 12/13/20 12/13/20 12/13/20 20:30 20:44 21:00 Temperature 96.9 F L Pulse Rate 78 80 77 Pulse Rate [ Fruit Sprayer ] Respiratory 16 23 24 Rate Blood Pressure 177/105 152/95 135/85 O2 Sat by Pulse 96 97 99 Oximetry 12/13/20 12/13/20 12/13/20 21:15 21:30 22:00 Temperature Pulse Rate 79 76 70 Pulse Rate [ Fruit Sprayer ] Respiratory 23 26 H 25 H Rate Blood Pressure 113/75 107/70 101/68 O2 Sat by Pulse 100 100 100 Oximetry 12/13/20 12/14/20 12/14/20 23:00 01:03 01:25 Temperature Pulse Rate 84 81 85 Pulse Rate [ Fruit Sprayer ] Respiratory 24 82 H 26 H Rate Blood Pressure 108/75 108/74 O2 Sat by Pulse 100 99 100 Oximetry 12/14/20 01:30 Temperature Pulse Rate 89 Pulse Rate [ Fruit Sprayer ] Respiratory 23 Rate Blood Pressure O2 Sat by Pulse 99 Oximetry - Reevaluation(s) Reevaluation #1: [id number] spoke with cardiology - dr menard Reevaluation #2: Spoke with nephrology - miles patient on 70 cc/hr normal saline 12/13/20 22:35 Procedures - Central Line Placement Right Femoral Consent Obtained: emergent situation Patient Placed on Monitor/Pulse Ox: Yes Prep: mask, gown, gloves Central Line Prep: Chlorhexidine scrub Ultrasound Used for Placement: Yes Bloods Obtained for Lab: No Central Line Position: good blood return, all ports aspirated, flushed, capped, sutured in place with nylon Dressing Applied: Tegaderm Patient Tolerated Procedure: well, no complications Additional Comments: time out 22:20 - Intubation Laryngoscope: none ET Tube Size: other (6 fr trach) Other Airway Intervention: 6 fr trach placed through pt stoma Tube Placement Confirmation: equal breath sounds bilaterally Medical Decision Making - Medical Decision Making Upon arrival patient is promptly placed in the trauma bay 1. He does arrive with palpable pulses. Patient is being bagged through what EMS called a trach. It is discovered that the patient does have a trumpet in place with no trach. He is placed on continuous pulse ox and cardiac monitoring. Respiratory therapist does come to bedside and a 6-Armenian trach was passed through the patient's stoma without issue. Patient is then placed on the vent. Patient started on a 2 L bolus of normal saline. Chest x-ray was performed which demonstrates perihilar opacities concerning for infiltrates and support apparatus in place. 2 IVs are established. Laboratory studies were conducted. Patient went for CT of his brain as well as a CT of his chest and soft tissue neck CT. Lab studies are remarkable for a d-dimer of 3.8. Sodium is 116. Lactic acid is 11.7. Troponin 0.027. BNP 2520. Coronavirus is negative. CT of the brain demonstrates no acute intracranial abnormality. CT of the chest demonstrates no acute PE. Scattered small to moderate bilateral opacities with left upper lobe consolidation. Soft tissue of the patient's neck demonstrates post surgical changes related to laryngectomy. Twelve-lead EKG demonstrates no acute ST segment elevation. Femoral central line is placed in the patient. He does maintain a stable blood pressure without vasopressor support. Oxygenation is 100% on the vent. ABG is obtained. ABG demonstrates a pH of 7.0. PCO2 of 77.2. PO2 133. Sat of 97.4%. Patient's respiratory rate increased from 16 to 22. I did call and discuss the case with Dr. Menard as the patient was a cardiac arrest. Case is also discussed with Dr. Wayne who presents that the patient be placed on normal saline at 70 mL/h. The patient will be admitted to the ICU for which I did speak with Dr. Bran and he agreed to accept the patient. I also spoke with Dr. Weston who agreed to patients admission. I spoke with patient's who is requesting that he remain a full code. The patient remained in hemodynamically stable condition and awaiting transport to the floor - Lab Data Result diagrams: 12/14/20 04:05 12/14/20 16:03 Lab Results 12/13/20 12/13/20 12/13/20 Range/Units 20:05 20:15 20:15 WBC (3.8-10.6) k/uL RBC (4.30-5.90) m/uL Hgb (13.0-17.5) gm/dL Hct (39.0-53.0) % MCV (80.0-100.0) fL MCH (25.0-35.0) pg MCHC (31.0-37.0) g/dL RDW (11.5-15.5) % Plt Count (150-450) k/uL MPV Neutrophils % % Lymphocytes % % Monocytes % % Eosinophils % % Basophils % % Neutrophils # (1.3-7.7) k/uL Lymphocytes # (1.0-4.8) k/uL Monocytes # (0-1.0) k/uL Eosinophils # (0-0.7) k/uL Basophils # (0-0.2) k/uL Anisocytosis PT (9.0-12.0) sec INR (<1.2) APTT (22.0-30.0) sec D-Dimer (<0.60) mg/L FEU Sample Site ABG pH (7.35-7.45) ABG pCO2 (35-45) mmHg ABG pO2 (83-108) mmHg ABG HCO3 (21-25) mmol/L ABG Total CO2 (19-24) mmol/L ABG O2 Saturation (94-97) % ABG Base Excess mmol/L Phi Test FiO2 % Sodium 116 L* (137-145) mmol/L Potassium 4.8 (3.5-5.1) mmol/L Chloride 76 L (98-107) mmol/L Carbon Dioxide 24 (22-30) mmol/L Anion Gap 16 mmol/L BUN 26 H (9-20) mg/dL Creatinine 0.69 (0.66-1.25) mg/dL Est GFR (CKD-EPI)AfAm >90 (>60 ml/min/1.73 sqM) Est GFR (CKD-EPI)NonAf >90 (>60 ml/min/1.73 sqM) Glucose 314 H (74-99) mg/dL POC Glucose (mg/dL) 327 H (75-99) mg/dL POC Glu [employer] Mechanic Helper ID Laurence Del Valle Lactic Ac Sepsis Rflx Plasma Lactic Acid Ramin 11.7 H* (0.7-2.0) mmol/L Calcium 7.5 L (8.4-10.2) mg/dL Magnesium 2.7 H (1.6-2.3) mg/dL Total Bilirubin 0.5 (0.2-1.3) mg/dL AST 73 H (17-59) U/L ALT 43 (4-49) U/L Alkaline Phosphatase 102 (38-126) U/L Troponin I (0.000-0.034) ng/mL NT-Pro-B Natriuret Pep pg/mL Total Protein 6.2 L (6.3-8.2) g/dL Albumin 3.8 (3.5-5.0) g/dL Urine Color Urine Appearance (Clear) Urine pH (5.0-8.0) Ur Specific [place] (1.001-1.035) Urine Protein (Negative) Urine Glucose (UA) (Negative) Urine Ketones (Negative) Urine Blood (Negative) Urine Nitrite (Negative) Urine Bilirubin (Negative) Urine Urobilinogen (<2.0) mg/dL Ur Leukocyte Esterase (Negative) Urine RBC (0-5) /hpf Urine WBC (0-5) /hpf Urine Opiates Screen (NotDetected) Ur Oxycodone Screen (NotDetected) Urine Methadone Screen (NotDetected) Ur Propoxyphene Screen (NotDetected) Ur Barbiturates Screen (NotDetected) U Tricyclic Antidepress (NotDetected) Ur Phencyclidine Scrn (NotDetected) Ur Amphetamines Screen (NotDetected) U Methamphetamines Scrn (NotDetected) U Benzodiazepines Scrn (NotDetected) Urine Cocaine Screen (NotDetected) U Marijuana (THC) Screen (NotDetected) Coronavirus (PCR) (Not Detectd) 12/13/20 12/13/20 12/13/20 Range/Units 20:15 20:16 20:16 WBC 11.3 H (3.8-10.6) k/uL RBC 3.40 L (4.30-5.90) m/uL Hgb 10.2 L (13.0-17.5) gm/dL Hct 31.4 L (39.0-53.0) % MCV 92.3 (80.0-100.0) fL MCH 30.1 (25.0-35.0) pg MCHC 32.6 (31.0-37.0) g/dL RDW 18.0 H (11.5-15.5) % Plt Count 259 (150-450) k/uL MPV 6.8 Neutrophils % 86 % Lymphocytes % 9 % Monocytes % 4 % Eosinophils % 0 % Basophils % 1 % Neutrophils # 9.7 H (1.3-7.7) k/uL Lymphocytes # 1.0 (1.0-4.8) k/uL Monocytes # 0.5 (0-1.0) k/uL Eosinophils # 0.0 (0-0.7) k/uL Basophils # 0.1 (0-0.2) k/uL Anisocytosis Slight PT (9.0-12.0) sec INR (<1.2) APTT (22.0-30.0) sec D-Dimer (<0.60) mg/L FEU Sample Site ABG pH (7.35-7.45) ABG pCO2 (35-45) mmHg ABG pO2 (83-108) mmHg ABG HCO3 (21-25) mmol/L ABG Total CO2 (19-24) mmol/L ABG O2 Saturation (94-97) % ABG Base Excess mmol/L Phi Test FiO2 % Sodium (137-145) mmol/L Potassium (3.5-5.1) mmol/L Chloride (98-107) mmol/L Carbon Dioxide (22-30) mmol/L Anion Gap mmol/L BUN (9-20) mg/dL Creatinine (0.66-1.25) mg/dL Est GFR (CKD-EPI)AfAm (>60 ml/min/1.73 sqM) Est GFR (CKD-EPI)NonAf (>60 ml/min/1.73 sqM) Glucose (74-99) mg/dL POC Glucose (mg/dL) (75-99) mg/dL POC Glu [employer] Power[employer] Mechanic Helper ID Lactic Ac Sepsis Rflx Plasma Lactic Acid Ramin (0.7-2.0) mmol/L Calcium (8.4-10.2) mg/dL Magnesium (1.6-2.3) mg/dL Total Bilirubin (0.2-1.3) mg/dL AST (17-59) U/L ALT (4-49) U/L Alkaline Phosphatase (38-126) U/L Troponin I 0.027 (0.000-0.034) ng/mL NT-Pro-B Natriuret Pep 2520 pg/mL Total Protein (6.3-8.2) g/dL Albumin (3.5-5.0) g/dL Urine Color Urine Appearance (Clear) Urine pH (5.0-8.0) Ur Specific [place] (1.001-1.035) Urine Protein (Negative) Urine Glucose (UA) (Negative) Urine Ketones (Negative) Urine Blood (Negative) Urine Nitrite (Negative) Urine Bilirubin (Negative) Urine Urobilinogen (<2.0) mg/dL Ur Leukocyte Esterase (Negative) Urine RBC (0-5) /hpf Urine WBC (0-5) /hpf Urine Opiates Screen (NotDetected) Ur Oxycodone Screen (NotDetected) Urine Methadone Screen (NotDetected) Ur Propoxyphene Screen (NotDetected) Ur Barbiturates Screen (NotDetected) U Tricyclic Antidepress (NotDetected) Ur Phencyclidine Scrn (NotDetected) Ur Amphetamines Screen (NotDetected) U Methamphetamines Scrn (NotDetected) U Benzodiazepines Scrn (NotDetected) Urine Cocaine Screen (NotDetected) U Marijuana (THC) Screen (NotDetected) Coronavirus (PCR) (Not Detectd) 12/13/20 12/13/20 12/13/20 Range/Units 20:26 20:26 20:26 WBC (3.8-10.6) k/uL RBC (4.30-5.90) m/uL Hgb (13.0-17.5) gm/dL Hct (39.0-53.0) % MCV (80.0-100.0) fL MCH (25.0-35.0) pg MCHC (31.0-37.0) g/dL RDW (11.5-15.5) % Plt Count (150-450) k/uL MPV Neutrophils % % Lymphocytes % % Monocytes % % Eosinophils % % Basophils % % Neutrophils # (1.3-7.7) k/uL Lymphocytes # (1.0-4.8) k/uL Monocytes # (0-1.0) k/uL Eosinophils # (0-0.7) k/uL Basophils # (0-0.2) k/uL Anisocytosis PT 10.2 (9.0-12.0) sec INR 1.0 (<1.2) APTT 29.8 (22.0-30.0) sec D-Dimer 3.84 H (<0.60) mg/L FEU Sample Site ABG pH (7.35-7.45) ABG pCO2 (35-45) mmHg ABG pO2 (83-108) mmHg ABG HCO3 (21-25) mmol/L ABG Total CO2 (19-24) mmol/L ABG O2 Saturation (94-97) % ABG Base Excess mmol/L Phi Test FiO2 % Sodium (137-145) mmol/L Potassium (3.5-5.1) mmol/L Chloride (98-107) mmol/L Carbon Dioxide (22-30) mmol/L Anion Gap mmol/L BUN (9-20) mg/dL Creatinine (0.66-1.25) mg/dL Est GFR (CKD-EPI)AfAm (>60 ml/min/1.73 sqM) Est GFR (CKD-EPI)NonAf (>60 ml/min/1.73 sqM) Glucose (74-99) mg/dL POC Glucose (mg/dL) (75-99) mg/dL POC Glu [employer]plant Mechanic Helper ID Lactic Ac Sepsis Rflx Plasma Lactic Acid Ramin (0.7-2.0) mmol/L Calcium (8.4-10.2) mg/dL Magnesium (1.6-2.3) mg/dL Total Bilirubin (0.2-1.3) mg/dL AST (17-59) U/L ALT (4-49) U/L Alkaline Phosphatase (38-126) U/L Troponin I (0.000-0.034) ng/mL NT-Pro-B Natriuret Pep pg/mL Total Protein (6.3-8.2) g/dL Albumin (3.5-5.0) g/dL Urine Color Light Yellow Urine Appearance Clear (Clear) Urine pH 6.5 (5.0-8.0) Ur Specific [place] 1.015 (1.001-1.035) Urine Protein 1+ H (Negative) Urine Glucose (UA) Negative (Negative) Urine Ketones Negative (Negative) Urine Blood Trace H (Negative) Urine Nitrite Negative (Negative) Urine Bilirubin Negative (Negative) Urine Urobilinogen <2.0 (<2.0) mg/dL Ur Leukocyte Esterase Negative (Negative) Urine RBC 5 (0-5) /hpf Urine WBC 3 (0-5) /hpf Urine Opiates Screen (NotDetected) Ur Oxycodone Screen (NotDetected) Urine Methadone Screen (NotDetected) Ur Propoxyphene Screen (NotDetected) Ur Barbiturates Screen (NotDetected) U Tricyclic Antidepress (NotDetected) Ur Phencyclidine Scrn (NotDetected) Ur Amphetamines Screen (NotDetected) U Methamphetamines Scrn (NotDetected) U Benzodiazepines Scrn (NotDetected) Urine Cocaine Screen (NotDetected) U Marijuana (THC) Screen (NotDetected) Coronavirus (PCR) Not Detected (Not Detectd) 12/13/20 12/13/20 12/13/20 Range/Units 20:26 20:35 20:39 WBC (3.8-10.6) k/uL RBC (4.30-5.90) m/uL Hgb (13.0-17.5) gm/dL Hct (39.0-53.0) % MCV (80.0-100.0) fL MCH (25.0-35.0) pg MCHC (31.0-37.0) g/dL RDW (11.5-15.5) % Plt Count (150-450) k/uL MPV Neutrophils % % Lymphocytes % % Monocytes % % Eosinophils % % Basophils % % Neutrophils # (1.3-7.7) k/uL Lymphocytes # (1.0-4.8) k/uL Monocytes # (0-1.0) k/uL Eosinophils # (0-0.7) k/uL Basophils # (0-0.2) k/uL Anisocytosis PT (9.0-12.0) sec INR (<1.2) APTT (22.0-30.0) sec D-Dimer (<0.60) mg/L FEU Sample Site rrad ABG pH 7.06 L* (7.35-7.45) ABG pCO2 77 H* (35-45) mmHg ABG pO2 133 H (83-108) mmHg ABG HCO3 22 (21-25) mmol/L ABG Total CO2 24 (19-24) mmol/L ABG O2 Saturation 97.0 (94-97) % ABG Base Excess -8.6 mmol/L Phi Test Yes FiO2 100 % Sodium (137-145) mmol/L Potassium (3.5-5.1) mmol/L Chloride (98-107) mmol/L Carbon Dioxide (22-30) mmol/L Anion Gap mmol/L BUN (9-20) mg/dL Creatinine (0.66-1.25) mg/dL Est GFR (CKD-EPI)AfAm (>60 ml/min/1.73 sqM) Est GFR (CKD-EPI)NonAf (>60 ml/min/1.73 sqM) Glucose (74-99) mg/dL POC Glucose (mg/dL) (75-99) mg/dL POC Glu [employer] Mechanic Helper ID Lactic Ac Sepsis Rflx Y Plasma Lactic Acid Ramin (0.7-2.0) mmol/L Calcium (8.4-10.2) mg/dL Magnesium (1.6-2.3) mg/dL Total Bilirubin (0.2-1.3) mg/dL AST (17-59) U/L ALT (4-49) U/L Alkaline Phosphatase (38-126) U/L Troponin I (0.000-0.034) ng/mL NT-Pro-B Natriuret Pep pg/mL Total Protein (6.3-8.2) g/dL Albumin (3.5-5.0) g/dL Urine Color Urine Appearance (Clear) Urine pH (5.0-8.0) Ur Specific [place] (1.001-1.035) Urine Protein (Negative) Urine Glucose (UA) (Negative) Urine Ketones (Negative) Urine Blood (Negative) Urine Nitrite (Negative) Urine Bilirubin (Negative) Urine Urobilinogen (<2.0) mg/dL Ur Leukocyte Esterase (Negative) Urine RBC (0-5) /hpf Urine WBC (0-5) /hpf Urine Opiates Screen Not Detected (NotDetected) Ur Oxycodone Screen Not Detected (NotDetected) Urine Methadone Screen Not Detected (NotDetected) Ur Propoxyphene Screen Not Detected (NotDetected) Ur Barbiturates Screen Not Detected (NotDetected) U Tricyclic Antidepress Not Detected (NotDetected) Ur Phencyclidine Scrn Not Detected (NotDetected) Ur Amphetamines Screen Not Detected (NotDetected) U Methamphetamines Scrn Not Detected (NotDetected) U Benzodiazepines Scrn Not Detected (NotDetected) Urine Cocaine Screen Not Detected (NotDetected) U Marijuana (THC) Screen Not Detected (NotDetected) Coronavirus (PCR) (Not Detectd) - EKG Data EKG Comments: EKG demonstrates sinus rhythm with a ventricular rate of 84. UT interval 128. QRS 108. QTC of 496. No acute ST segment elevations or depressions Critical Care Time Critical Care Time: Yes Critical Care Time: 46 minutes for consultation with multiple specialists, management of the patients vent settings Disposition Clinical Impression: Laryngeal squamous cell carcinoma, Cardiac arrest, Hyponatremia, Lactic aci dosis, Status post tracheostomy, Aspiration pneumonia Disposition: ADMITTED IP TO THIS [facility] Condition: Critical Is patient prescribed a controlled substance at d/c from ED?: No Decision to Admit Reason: Admit from EC Decision Date: 12/13/20 Decision Time: 22:29
--- NOTE | 2020-12-13 21:26 | CT ---
EXAMINATION TYPE: CT brain wo con DATE OF EXAM: 12/13/2020 COMPARISON: PET/CT 12/22/2019. HISTORY: ams, cardiac arrest. hx of lung and throat ca. CT DLP: 1284 mGycm Automated exposure control for dose reduction was used. FINDINGS: There is no acute intracranial hemorrhage, midline shift or hydrocephalus. The white matter is grossl y preserved. The paranasal sinuses demonstrate moderate disease. Stable nonspecific 0.7 cm lucency within the righ t parietal bone without bony destruction. Otherwise no acute osseous abnormality. IMPRESSION: NO ACUTE INTRACRANIAL ABNORMALITY.
--- NOTE | 2020-12-13 21:38 | CT ---
EXAMINATION TYPE: CT chest angio for PE DATE OF EXAM: 12/13/2020 COMPARISON: 12/14/2019. HISTORY: ams, cardiac arrest. hx of lung and throat ca. CT DLP: 616.4 mGycm Automated exposure control for dose reduction was used. CONTRAST: CT Chest for pulmonary embolism performed with with IV Contrast, patient injected with 60 mL of Isovu e 370. FINDINGS: LUNGS: There are scattered small to moderate somewhat patchy opacities in the bilateral lungs, predom inantly in the upper and midlungs. There is also small to moderate consolidation in the left upper lo be. There is no pleural effusion or pneumothorax seen. There is interval resection of previous righ t upper lobe mass. MEDIASTINUM: There is adequate enhancement of the pulmonary artery to the level of the central/main a rteries. There is no CT evidence for pulmonary embolism. There are no greater than 1 cm hilar or med iastinal lymph nodes. Scattered multiple small mediastinal lymph nodes are present. No pericardial e ffusion is seen. OTHER: No additional significant abnormality is seen. Chronic right fourth through eighth rib fractu res. Diffuse hepatic steatosis. IMPRESSION: No acute PE within the limitations of this study. Scattered small to moderate bilateral opacities with left upper lobe consolidation. Considerations in clude aspiration changes or atypical pneumonia. Findings are indeterminate of Covid pneumonia. Chronic right rib fractures. Interval resection of previous right upper lobe mass.
--- NOTE | 2020-12-13 21:51 | CT ---
EXAMINATION TYPE: CT soft tissue neck w con DATE OF EXAM: 12/13/2020 9:15 PM COMPARISON: 03/27/2020. HISTORY: ams, cardiac arrest. hx of lung and throat ca. CT DLP: 395.3 mGycm Automated exposure control for dose reduction was used. CONTRAST: CT scan of the neck is performed following with IV Contrast, patient injected with 40cc mL of Isovue 370. Axial images are obtained, coronal and sagittal reformatted images are reviewed. FINDINGS: There are interval postsurgical changes related to laryngectomy. There is moderate to marked fatty at rophy of the anterior hypopharynx and laryngeal soft tissues. There is also moderate thickening of th e remnant anterior soft tissues about the surgical site. No definite enhancing masses or fluid collec tion seen. Airway: Patent. Parotid/submandibular glands: Parotid glands are unremarkable. Postoperative changes involving the s ubmandibular glands. Carotid/Vascular Structures: No significant abnormality. Osseous Structures: No significant abnormality. Other: Tracheostomy and enteric tubes are in place IMPRESSION: No acute abnormality. Postsurgical changes related to laryngectomy. Resultant moderate to marked atrophy of the hypopharynx and laryngeal soft tissues. Recommend continued surveillance.
[2020-12-13 22:32] LABS: Partial Thromboplastin Time 29.8 sec (22.0-30.0); Prothrombin Time 10.2 sec (9.0-12.0)
[2020-12-13 22:37] LABS: D-Dimer 3.84 mg/L FEU (<0.60)
[2020-12-13] MEDS ORDERED: PIPERACILLIN-TAZOBACTAM 3.375 GM in SODIUM CHLORIDE 0.9% 100 ML IVPB STA (22:46)
[2020-12-13] MEDS ORDERED: VANCOMYCIN 1,000 MG in SODIUM CHLORIDE 0.9% 250 ML IVPB STA (22:47)
[2020-12-13] MEDS ORDERED: VANCOMYCIN 2,000 MG in SODIUM CHLORIDE 0.9% 500 ML 500 ML IVPB STA (22:48)
[2020-12-13] MEDS ORDERED: VANCOMYCIN IV PER PHARMACY 1 EACH MISC MISCELLANE PRN (22:49)
[2020-12-13] MEDS ORDERED: NALOXONE 0.4 MG/ML 1 ML VIAL IV PRN (23:03)
[2020-12-13] MEDS: SODIUM CHLORIDE 0.9% 1,000 ML IV SCH (23:47)
[2020-12-13] MEDS ORDERED: MIDAZOLAM 1 MG/ML 5 ML VIAL IV STA (23:52)
[2020-12-14] MEDS ORDERED: LORazepam 2 MG/ML INJ IV PRN ×2 (01:07→17:47)
[2020-12-14 01:33] LABS: Glucose,Whole Blood 133 mg/dL (75-99)
[2020-12-14 04:23] LABS: Anisocytosis Slight; Basophils % (A) 0 %; Eosinophils % (A) 0 %; HCT 28.5 % (39.0-53.0); HGB 9.4 gm/dL (13.0-17.5); Lymphocytes # (A) 0.3 k/uL (1.0-4.8); Lymphocytes % (A) 2 %; MCH 29.4 pg (25.0-35.0); MCHC 33.2 g/dL (31.0-37.0); MCV 88.7 fL (80.0-100.0); Mean Platelet Volume 6.6; Monocytes # (A) 0.7 k/uL (0-1.0); Monocytes % (A) 5 %; Neutrophils # (A) 13.2 k/uL (1.3-7.7); Neutrophils % (A) 92 %; Platelet Count 243 k/uL (150-450); RBC 3.21 m/uL (4.30-5.90); RDW 18.4 % (11.5-15.5); WBC 14.3 k/uL (3.8-10.6)
[2020-12-14 04:32] LABS: ALT 88 U/L (4-49); AST 174 U/L (17-59); African American GFR (CKD) >90 (>60 ml/min/1.73 sqM); Albumin 3.3 g/dL (3.5-5.0); Alkaline Phosphatase 100 U/L (38-126); Anion Gap 3 mmol/L; Blood Urea Nitrogen 24 mg/dL (9-20); Carbon Dioxide 32 mmol/L (22-30); Chloride 85 mmol/L (98-107); Glucose 100 mg/dL (74-99); Non-African American GFR(CKD) >90 (>60 ml/min/1.73 sqM); Potassium 3.6 mmol/L (3.5-5.1); Sodium 120 mmol/L (137-145); Total Bilirubin 0.5 mg/dL (0.2-1.3); Total Protein 5.8 g/dL (6.3-8.2)
[2020-12-14 04:40] LABS: Calcium 6.3 mg/dL (8.4-10.2)
[2020-12-14 04:58] LABS: ABG Base Excess 7.5 mmol/L; ABG HCO3 33 mmol/L (21-25); ABG Oxygen Saturation 98.7 % (94-97); ABG PCO2 55 mmHg (35-45); ABG PH 7.38 (7.35-7.45); ABG PO2 107 mmHg (83-108); ABG TCO2 34 mmol/L (19-24); Allen Test Performed? Yes
[2020-12-14] MEDS ORDERED: POTASSIUM BICARBONATE/CIT AC 20 MEQ TABLET.EFF NG-TUBE SCH (07:00)
--- NOTE | 2020-12-14 07:19 | XR ---
EXAMINATION TYPE: XR chest 1V portable DATE OF EXAM: 12/14/2020 COMPARISON: Chest x-ray 12/13/2020 HISTORY: Tracheostomy tube, abnormal chest x-ray, NG tube placement TECHNIQUE: Single frontal view of the chest is obtained. FINDINGS: Dobbhoff tube has been removed, NG tube has been placed, distal tip is not included on exa m however tube is coursing towards the left upper quadrant. Tracheostomy tube is overlying appropriat e position. There is abnormal density in the left upper lobe, perihilar region. No evident pneumothor ax. Surgical clips are present at the thoracic inlet level, defibrillator pads overlying the patient. No evident pneumothorax or sizable effusion. Cardiac mediastinal silhouette shows a similar appearan ce. There is elevation of the left hemidiaphragm. IMPRESSION: NG tube as described. There may be perihilar pneumonia, edema
[2020-12-14 08:23] LABS: ABG PCO2 77 mmHg (35-45); ABG PH 7.06 (7.35-7.45)
--- NOTE | 2020-12-14 08:23 | P.NPCON ---
History of Present Illness - Reason for Consult hyponatremia - History of Present Illness Reason for consultation: Hyponatremia History of present illness: Patient is a 64-year-old male seen in renal consultation for hyponatremia. Patient presented to the hospital by the EMS after he was found down by his at home. Patient's down time was about 10 minutes and he was found to be he initially. He underwent CPR and was subsequently brought to the hospital. Patient has history of laryngeal cancer and is status post pharyngectomy. He has a tracheostomy. Currently on 80% FiO2. Patient's sodium level on admission yesterday around 8 PM was 116. He did receive 2 L of normal saline bolus and was then started on normal saline at 70 mL an hour. Sodium level this morning is up to 120. He also underwent chest CT on admission which reveals no evidence of PE. Not on any vasopressors. Blood pressure stable. I don't see any thiazide diuretics and his home medications. GFR at baseline. Vital signs are stable. General: The patient appeared well nourished and normally developed. HEENT: Tracheostomy noted. NG tube noted. LUNGS: Breath sounds decreased. HEART: Rate and Rhythm are regular. ABDOMEN: Soft, nontender. EXTREMITITES: Trace edema. Past Medical History Past Medical History: Cancer, COPD, Hyperlipidemia, Hypertension, Osteoarthritis (OA), Thyroid Disorder Additional Past Medical History / Comment(s): hx. throat cancer, chemo/radiation >1 year ago, recently re-started chemo-has had 2 tx's., will be re-starting radiation soon, cologard positive recently History of Any Multi-Drug Resistant Organisms: None Reported Past Surgical History: Orthopedic Surgery Additional Past Surgical History / Comment(s): right shoulder surgery, right l ailin resection @[facility] @beginning of year Past Anesthesia/Blood Transfusion Reactions: No Reported Reaction Additional Past Anesthesia/Blood Transfusion Reaction / Comment(s): no previous blood transfusion Past Psychological History: Anxiety, Schizophrenia Smoking Status: Unknown if ever smoked Past Alcohol Use History: Occasional Past Drug Use History: None Reported - Past Family History Mother Family Medical History: Deep Vein Thrombosis (DVT) Medications and Allergies Home Medications Medication Instructions Recorded Confirmed Type Simvastatin [Zocor] 20 mg PO HS 04/07/15 12/13/20 History amLODIPine [Norvasc] 10 mg PO DAILY 12/19/19 12/13/20 History lisinopriL [Prinivil] 5 mg PO DAILY 12/19/19 12/13/20 History ALPRAZolam [Xanax] 0.25 mg PO DAILY PRN 12/13/20 12/13/20 History HYDROcodone/APAP 5-325MG [[place] 1 tab PO Q4H PRN 12/13/20 12/13/20 History 5-325] Levothyroxine Sodium [Synthroid] 75 mcg PO DAILY 12/13/20 12/13/20 History OLANZapine [ZyPREXA] 15 mg PO HS 12/13/20 12/13/20 History Ondansetron [Zofran ODT] 4 mg PO Q8H PRN 12/13/20 12/13/20 History Sertraline [Zoloft] 50 mg PO HS 12/13/20 12/13/20 History Allergies Allergy/AdvReac Type Severity Reaction Status Date / Time No Known Allergies Allergy Verified 12/13/20 21:50 Physical Exam Vitals: Vital Signs Temp Pulse Pulse Resp BP Pulse Ox 12/14/20 07:00 87 19 110/78 100 12/14/20 06:00 88 26 H 122/78 99 12/14/20 05:00 88 25 H 121/74 94 L 12/14/20 04:00 98.2 F 84 19 108/66 95 12/14/20 03:00 80 16 105/69 99 12/14/20 02:00 84 24 112/67 99 12/14/20 01:50 97.8 F 84 24 116/69 100 12/14/20 01:40 86 26 H 100 12/14/20 01:30 89 23 99 12/14/20 01:25 85 26 H 100 12/14/20 01:03 81 82 H 108/74 99 12/13/20 23:00 84 24 108/75 100 12/13/20 22:00 70 25 H 101/68 100 12/13/20 21:30 76 26 H 107/70 100 12/13/20 21:15 79 23 113/75 100 12/13/20 21:00 77 24 135/85 99 12/13/20 20:44 96.9 F L 80 23 152/95 97 12/13/20 20:30 78 16 177/105 96 12/13/20 20:20 114 H 12/13/20 20:15 74 16 147/85 88 L 12/13/20 20:02 105 H 12 144/85 86 L Intake and Output 12/13/20 12/14/20 12/14/20 22:59 06:59 14:59 Intake Total 420 70 Output Total 900 880 75 Balance -900 -460 -5 Intake: IV 420 70 .9 @ 70 mL/hr 420 70 Output: Urine 900 880 75 Other: Voiding Method Indwelling Catheter Weight 101.741 kg 98.1 kg Results - Lab Results Most recent lab results ABG pH 7.38 (7.35-7.45) 12/14/20 04:57 ABG pCO2 55 mmHg (35-45) H 12/14/20 04:57 ABG pO2 107 mmHg (83-108) 12/14/20 04:57 ABG HCO3 33 mmol/L (21-25) H 12/14/20 04:57 ABG O2 Saturation 98.7 % (94-97) H 12/14/20 04:57 Calcium 6.3 mg/dL (8.4-10.2) L* 12/14/20 04:05 Magnesium 2.0 mg/dL (1.6-2.3) 12/14/20 04:05 12/14/20 04:05 12/14/20 04:05 Assessment and Plan Plan: Assessment: 1. Hypovolemic hyponatremia improving with normal saline. Sodium level 120 this morning. 2. Hypokalemia from poor intake. Replaced. Magnesium normal. 3. Acute hypercapnic respiratory failure. 4. PEA arrest with signs of anoxia. 5. History of laryngeal cancer status post pharyngectomy. Now has a tracheostomy. Plan: Maintain normal saline at 70 mL an hour. Repeat sodium level at noon today. Check TSH. Check serum and urine osmolality and random urine sodium. Replace calcium. 1 g IV calcium gluconate today. Thank you for the consultation. I will continue to follow the patient with you during his hospital stay.
[2020-12-14] MEDS ORDERED: CALCIUM GLUCONATE 1 GM in SODIUM CHLORIDE 0.9% 100 ML IVPB ONE (09:00)
[2020-12-14] MEDS ORDERED: PANTOPRAZOLE 40 MG/10 ML VIAL IVP SCH (09:00)
[2020-12-14] MEDS ORDERED: CHLORHEXIDINE GLUCONATE 15 ML CUP MUCOUS MEM SCH (09:00)
[2020-12-14] MEDS: PIPERACILLIN-TAZOBACTAM 3.375 GM in SODIUM CHLORIDE 0.9% 100 ML IVPB SCH ×2 (09:43→17:53)
[2020-12-14] MEDS ORDERED: VANCOMYCIN 1,750 MG in SODIUM CHLORIDE 0.9% 500 ML 500 ML IVPB SCH (10:00)
[2020-12-14 10:53] LABS: T4, Free (Free Thyroxine) 0.38 ng/dL (0.78-2.19)
[2020-12-14 11:33] LABS: Glucose,Whole Blood 113 mg/dL (75-99)
[2020-12-14 11:48] LABS: African American GFR (CKD) >90 (>60 ml/min/1.73 sqM); Anion Gap 4 mmol/L; Blood Urea Nitrogen 22 mg/dL (9-20); Carbon Dioxide 35 mmol/L (22-30); Chloride 84 mmol/L (98-107); Glucose 110 mg/dL (74-99); Non-African American GFR(CKD) >90 (>60 ml/min/1.73 sqM); Potassium 3.6 mmol/L (3.5-5.1); Sodium 123 mmol/L (137-145)
--- NOTE | 2020-12-14 12:31 | P.CNPUL ---
History of Present Illness Consult date: 12/14/20 Requesting physician: Eliot Camacho Reason for consult: other Chief complaint: Cardiopulmonary arrest. History of present illness: 64-year-old male, with a history of laryngeal carcinoma, status post laryngectomy, in August,, COPD, essential hypertension, who presents to the emergency department in cardiac arrest. He apparently sustained a fall in the bathroom at home. He was apparently down there about 10 minutes. EMS was called. The patient was apparently found by EMS to be in pulseless electrical activity. The patient was given a dose of epinephrine and additional 5-10 minutes of resuscitation. There was return of spontaneous circulation. Apparently afterwards, pulses were lost again. Additional CPR was performed. Apparently, total down time, when I spoke to the ER physician was 20-25 minutes. The laryngectomy was done at [facility]. He did have a Dobbhoff placed 1 week ago for nutrition. No additional history can be obtained. Past medical history includes laryngeal carcinoma, status post laryngectomy, COPD, hyperlipidemia, hypertension, osteoarthritis, and hypothyroidism. The patient's neurologic examination is very poor. He is not responsive to painful or verbal stimuli. His pupillary reflexes are present but both pupils are somewhat dila dylan. They are reactive but sluggish. There is no gag reflex. Doll's eyes reflex is absent. He does trigger the ventilator. There is no corneal reflex. I did order an EEG and a neurology consultation. The ER physician did insert a Shiley tracheostomy tube to the patient's stoma. Currently, he is on the volume assist control modality, rate 22, tidal volume 500, FiO2 80% to be turned to 70%, and a PEEP of 5. Arterial blood gases show a pO2 of 107, PaCO2 of 55, and a pH is 7.38. The patient's getting saline at 70 mL an hour and propofol at 20 mcg/kg/m. The computed tomography scan of the brain last night was negative. The chest x-ray shows some upper lobe infiltrates. Neurology consultation and EEG are pending. Review of Systems Review of systems cannot be obtained from this patient. No additional history as it relates to the review of systems can be obtained. Past Medical History Past Medical History: Cancer, COPD, Hyperlipidemia, Hypertension, Osteoarthritis (OA), Thyroid Disorder Additional Past Medical History / Comment(s): hx. throat cancer, chemo/radiation >1 year ago, recently re-started chemo-has had 2 tx's., will be re-starting radiation soon, cologard positive recently History of Any Multi-Drug Resistant Organisms: None Reported Past Surgical History: Orthopedic Surgery Additional Past Surgical History / Comment(s): right shoulder surgery, right lung resection @[facility] @beginning of year Past Anesthesia/Blood Transfusion Reactions: No Reported Reaction Additional Past Anesthesia/Blood Transfusion Reaction / Comment(s): no previous blood transfusion Past Psychological History: Anxiety, Schizophrenia Smoking Status: Unknown if ever smoked Past Alcohol Use History: Occasional Past Drug Use History: None Reported - Past Family History Mother Family Medical History: Deep Vein Thrombosis (DVT) Medications and Allergies Home Medications Medication Instructions Recorded Confirmed Type Simvastatin [Zocor] 20 mg PO HS 04/07/15 12/13/20 History amLODIPine [Norvasc] 10 mg PO DAILY 12/19/19 12/13/20 History lisinopriL [Prinivil] 5 mg PO DAILY 12/19/19 12/13/20 History ALPRAZolam [Xanax] 0.25 mg PO DAILY PRN 12/13/20 12/13/20 History HYDROcodone/APAP 5-325MG [[place] 1 tab PO Q4H PRN 12/13/20 12/13/20 History 5-325] Levothyroxine Sodium [Synthroid] 75 mcg PO DAILY 12/13/20 12/13/20 History OLANZapine [ZyPREXA] 15 mg PO HS 12/13/20 12/13/20 History Ondansetron [Zofran ODT] 4 mg PO Q8H PRN 12/13/20 12/13/20 History Sertraline [Zoloft] 50 mg PO HS 12/13/20 12/13/20 History Allergies Allergy/AdvReac Type Severity Reaction Status Date / Time No Known Allergies Allergy Verified 12/13/20 21:50 Physical Exam Osteopathic Statement: *. No significant issues noted on an osteopathic structural exam other than those noted in the History and Physical/Consult. Vitals: Vital Signs Temp Pulse Pulse Resp BP Pulse Ox 12/14/20 11:00 94 21 161/92 99 12/14/20 10:00 96 25 H 148/88 97 12/14/20 09:00 92 23 117/80 98 12/14/20 08:00 89 23 121/78 98 12/14/20 07:00 87 19 110/78 100 12/14/20 06:00 88 26 H 122/78 99 12/14/20 05:00 88 25 H 121/74 94 L 12/14/20 04:00 98.2 F 84 19 108/66 95 12/14/20 03:00 80 16 105/69 99 12/14/20 02:00 84 24 112/67 99 12/14/20 01:50 97.8 F 84 24 116/69 100 12/14/20 01:40 86 26 H 100 12/14/20 01:30 89 23 99 12/14/20 01:25 85 26 H 100 12/14/20 01:03 81 82 H 108/74 99 12/13/20 23:00 84 24 108/75 100 12/13/20 22:00 70 25 H 101/68 100 12/13/20 21:30 76 26 H 107/70 100 12/13/20 21:15 79 23 113/75 100 12/13/20 21:00 77 24 135/85 99 12/13/20 20:44 96.9 F L 80 23 152/95 97 12/13/20 20:30 78 16 177/105 96 12/13/20 20:20 114 H 12/13/20 20:15 74 16 147/85 88 L 12/13/20 20:02 105 H 12 144/85 86 L Intake and Output 12/13/20 12/14/20 12/14/20 22:59 06:59 14:59 Intake Total 420 354.513 Output Total 900 880 375 Balance -900 -460 -20.487 Intake: IV 420 350 .9 @ 70 mL/hr 420 350 Intake, IV Titration 4.513 Amount propofoL 1,000 mg In 4.513 Empty Bag 1 bag @ Titrate IV .Q0M [facility] Rx#: [id number] Output: Urine 900 880 375 Other: Voiding Method Indwelling Catheter Indwelling Catheter Weight 101.741 kg 98.1 kg Unresponsive, with a tracheostomy tube noted in the patient's previous laryngectomy stoma. HEENT examination is grossly unremarkable. Neck supple. Full range of motion. No adenopathy thyromegaly or neck vein distention. Cardiovascular examination reveals regular rhythm rate. S1-S2 normal. No S3 or S4. No discernible murmur noted. Heart rate is 94 bpm. Lungs reveal bilateral coarse rhonchi. Breath sounds are equal. No wheezes or crackles. Abdomen soft bowel sounds are heard. No masses or tenderness. Extremities are intact. No cyanosis clubbing or edema. Skin is without rash or lesion. Neurologic examination reveals an unresponsive white male. The patient has dilated pupils that are sluggishly reactive. There is no corneal reflex. Doll's eyes reflex is absent. There is no gag reflex. The patient does not respond to verbal or painful stimuli. He does have these intermittent twitches, which may be seizure activity. His brain CT was negative. A neurology consultation and EEG were ordered. Results - Laboratory Findings CBC and BMP: 12/14/20 04:05 12/14/20 11:25 ABG ABG pH 7.38 (7.35-7.45) 12/14/20 04:57 ABG pCO2 55 mmHg (35-45) H 12/14/20 04:57 ABG pO2 107 mmHg (83-108) 12/14/20 04:57 ABG O2 Saturation 98.7 % (94-97) H 12/14/20 04:57 PT/INR, D-dimer PT 10.2 sec (9.0-12.0) 12/13/20 20:26 INR 1.0 (<1.2) 12/13/20 20:26 D-Dimer 3.84 mg/L FEU (<0.60) H 12/13/20 20:26 Abnormal lab findings: Abnormal Labs 12/13/20 12/13/20 12/13/20 20:05 20:15 20:15 WBC RBC Hgb Hct RDW Neutrophils # Lymphocytes # D-Dimer ABG pH ABG pCO2 ABG pO2 ABG HCO3 ABG Total CO2 ABG O2 Saturation Sodium 116 L* Chloride 76 L Carbon Dioxide BUN 26 H Creatinine Glucose 314 H POC Glucose (mg/dL) 327 H Osmolality Plasma Lactic Acid Ramin 11.7 H* Calcium 7.5 L Magnesium 2.7 H AST 73 H ALT Total Protein 6.2 L Albumin TSH Free T4 Urine Protein Urine Blood 12/13/20 12/13/20 12/13/20 20:16 20:26 20:26 WBC 11.3 H RBC 3.40 L Hgb 10.2 L Hct 31.4 L RDW 18.0 H Neutrophils # 9.7 H Lymphocytes # D-Dimer 3.84 H ABG pH ABG pCO2 ABG pO2 ABG HCO3 ABG Total CO2 ABG O2 Saturation Sodium Chloride Carbon Dioxide BUN Creatinine Glucose POC Glucose (mg/dL) Osmolality Plasma Lactic Acid Ramin Calcium Magnesium AST ALT Total Protein Albumin TSH Free T4 Urine Protein 1+ H Urine Blood Trace H 12/13/20 12/14/20 12/14/20 20:35 01:32 04:05 WBC 14.3 H RBC 3.21 L Hgb 9.4 L Hct 28.5 L RDW 18.4 H Neutrophils # 13.2 H Lymphocytes # 0.3 L D-Dimer ABG pH 7.06 L* ABG pCO2 77 H* ABG pO2 133 H ABG HCO3 ABG Total CO2 ABG O2 Saturation Sodium Chloride Carbon Dioxide BUN Creatinine Glucose POC Glucose (mg/dL) 133 H Osmolality Plasma Lactic Acid Ramin Calcium Magnesium AST ALT Total Protein Albumin TSH Free T4 Urine Protein Urine Blood 12/14/20 12/14/20 12/14/20 04:05 04:05 04:57 WBC RBC Hgb Hct RDW Neutrophils # Lymphocytes # D-Dimer ABG pH ABG pCO2 55 H ABG pO2 ABG HCO3 33 H ABG Total CO2 34 H ABG O2 Saturation 98.7 H Sodium 120 L Chloride 85 L Carbon Dioxide 32 H BUN 24 H Creatinine 0.51 L Glucose 100 H POC Glucose (mg/dL) Osmolality 258 L Plasma Lactic Acid Ramin Calcium 6.3 L* Magnesium AST 174 H ALT 88 H Total Protein 5.8 L Albumin 3.3 L TSH 7.280 H Free T4 0.38 L Urine Protein Urine Blood 12/14/20 12/14/20 11:22 11:25 WBC RBC Hgb Hct RDW Neutrophils # Lymphocytes # D-Dimer ABG pH ABG pCO2 ABG pO2 ABG HCO3 ABG Total CO2 ABG O2 Saturation Sodium 123 L Chloride 84 L Carbon Dioxide 35 H BUN 22 H Creatinine 0.48 L Glucose 110 H POC Glucose (mg/dL) 113 H Osmolality Plasma Lactic Acid Ramin Calcium 7.0 L Magnesium AST ALT Total Protein Albumin TSH Free T4 Urine Protein Urine Blood - Diagnostic Findings Chest x-ray: image reviewed CT scan - chest: image reviewed Assessment and Plan Assessment: Status post cardiopulmonary arrest, of unclear etiology. There was cardiopulmonary resuscitation lasting about 20-25 minutes, with eventual return of spontaneous circulation. The patient was found to be in pulseless electrical activity. Rule out anoxic brain injury. Status post laryngectomy, August 2020, for laryngeal carcinoma. Recent insertion of the feeding tube, to optimize nutrition. History of COPD, from previous heavy tobacco use. History of hyperlipidemia. History of essential hypertension. History of osteoarthritis. History of hypothyroidism. History of anxiety/schizophrenia. Plan: Plan dated 12/14/2020. The patient's FiO2 was dropped from 80-70%. I told the nurse to try to stop the propofol to see if he needed it. Apparently was started because the patient was bucking the ventilator. I did order a neurology consultation and EEG. Currently, his neurologic examination is not too good. I will call the and talked to her. Also, a family member is a psychiatrist here at the hospital. Additional recommendations and suggestions are forthcoming. His prognosis is gu arded. Medications are reviewed. Additional recommendations and suggestions are forthcoming. Time with Patient: Greater than 30
[2020-12-14] MEDS ORDERED: SODIUM CHLORIDE 0.45% 1,000 ML IV ONE (13:18)
[2020-12-14] MEDS ORDERED: lisinopriL 5 MG TAB PO SCH (13:30)
[2020-12-14] MEDS: SODIUM CHLORIDE 0.9% 1,000 ML IV SCH (13:30)
--- NOTE | 2020-12-14 14:26 | P.CNNES ---
History of Present Illness Consult date: 12/14/20 Reason for Consult: cardiac arrest History of Present Illness: The patient is a 64-year-old male who is seen in neurologic consultation on December 14, 2020 via teleneurology. History is obtained from the chart and from the patient's nurse who is at the bedside. The patient was apparently found down on the bathroom floor, at home. There was reportedly no pulse. EMS was called. Apparently the patient was down on the floor for approximately 10 minutes before EMS arrival. When EMS arrived, they found the patient to be pulseless. CPR was started. Patient was bagged with O2 per tracheostomy. The patient reportedly received a dose of epinephrine. Pulses returned. The patient then had another episode of arrest. He received another dose of epinephrine and pulses again returned. Per reporting, the patient was pulseless for approximately 20-25 minutes. In the emergency department, CT scan of the brain was performed. There is no evidence of acute infarct or hemorrhage. There is concern for cerebral anoxia, given the patient's downtime. He is also been unresponsive to noxious and verbal stimulation. Per the patient's RN, when propofol was not onboard, the patient was "asynchronous with the event". She also observed decerebrate posturing. Review of Systems ROS unobtainable: due to mental status Past Medical History Past Medical History: Cancer, COPD, Hyperlipidemia, Hypertension, Osteoarthritis (OA), Thyroid Disorder Additional Past Medical History / Comment(s): hx. throat cancer, chemo/radiation >1 year ago, recently re-started chemo-has had 2 tx's., will be re-starting radiation soon, cologard positive recently History of Any Multi-Drug Resistant Organisms: None Reported Past Surgical History: Orthopedic Surgery Additional Past Surgical History / Comment(s): right shoulder surgery, right lung resection @[facility] @beginning of year Past Anesthesia/Blood Transfusion Reactions: No Reported Reaction Additional Past Anesthesia/Blood Transfusion Reaction / Comment(s): no previous blood transfusion Past Psychological History: Anxiety, Schizophrenia Smoking Status: Unknown if ever smoked Past Alcohol Use History: Occasional Past Drug Use History: None Reported - Past Family History Mother Family Medical History: Deep Vein Thrombosis (DVT) Medications and Allergies Home Medications Medication Instructions Recorded Confirmed Type Simvastatin [Zocor] 20 mg PO HS 04/07/15 12/13/20 History amLODIPine [Norvasc] 10 mg PO DAILY 12/19/19 12/13/20 History lisinopriL [Prinivil] 5 mg PO DAILY 12/19/19 12/13/20 History ALPRAZolam [Xanax] 0.25 mg PO DAILY PRN 12/13/20 12/13/20 History HYDROcodone/APAP 5-325MG [[place] 1 tab PO Q4H PRN 12/13/20 12/13/20 History 5-325] Levothyroxine Sodium [Synthroid] 75 mcg PO DAILY 12/13/20 12/13/20 History OLANZapine [ZyPREXA] 15 mg PO HS 12/13/20 12/13/20 History Ondansetron [Zofran ODT] 4 mg PO Q8H PRN 12/13/20 12/13/20 History Sertraline [Zoloft] 50 mg PO HS 12/13/20 12/13/20 History Allergies Allergy/AdvReac Type Severity Reaction Status Date / Time No Known Allergies Allergy Verified 12/13/20 21:50 Physical Examination - Vital Signs Vital Signs: Vital Signs Temp Pulse Pulse Resp BP Pulse Ox 12/14/20 12:00 92 22 153/90 100 12/14/20 11:00 94 21 161/92 99 12/14/20 10:00 96 25 H 148/88 97 12/14/20 09:00 92 23 117/80 98 12/14/20 08:00 89 23 121/78 98 12/14/20 07:00 87 19 110/78 100 12/14/20 06:00 88 26 H 122/78 99 12/14/20 05:00 88 25 H 121/74 94 L 12/14/20 04:00 98.2 F 84 19 108/66 95 12/14/20 03:00 80 16 105/69 99 12/14/20 02:00 84 24 112/67 99 12/14/20 01:50 97.8 F 84 24 116/69 100 12/14/20 01:40 86 26 H 100 12/14/20 01:30 89 23 99 12/14/20 01:25 85 26 H 100 12/14/20 01:03 81 82 H 108/74 99 12/13/20 23:00 84 24 108/75 100 12/13/20 22:00 70 25 H 101/68 100 12/13/20 21:30 76 26 H 107/70 100 12/13/20 21:15 79 23 113/75 100 12/13/20 21:00 77 24 135/85 99 12/13/20 20:44 96.9 F L 80 23 152/95 97 12/13/20 20:30 78 16 177/105 96 12/13/20 20:20 114 H 12/13/20 20:15 74 16 147/85 88 L 12/13/20 20:02 105 H 12 144/85 86 L Intake and Output 12/13/20 12/14/20 12/14/20 22:59 06:59 14:59 Intake Total 420 424.513 Output Total 900 880 450 Balance -900 -460 -25.487 Intake: IV 420 420 .9 @ 70 mL/hr 420 420 Intake, IV Titration 4.513 Amount propofoL 1,000 mg In 4.513 Empty Bag 1 bag @ Titrate IV .Q0M [facility] Rx#: [id number] Output: Urine 900 880 450 Other: Voiding Method Indwelling Catheter Indwelling Catheter Weight 101.741 kg 98.1 kg General: The patient is supine in the bed. He is being mechanically ventilated via tracheostomy. He is occasionally breathing over the vent, with 20 g of propofol on board. When the propofol is placed on hold, the patient begins to breathe more frequently. HEENT: Head is atraumatic, normocephalic. Fundus not visualized. There is no scleral icterus. Mucous membranes are moist. Neck: Supple Heart: Regular rate and rhythm Extremities: Without edema Neurological examination Mental status: The patient is not responsive to verbal or noxious stimulation. There is no eye opening. The patient follows no commands. Cranial nerves: Pupils are unequal. Right pupil is 4 mm and reactive, left pu pil 3 mm and reactive. The eyelids are passively opened, pupils are directed upward. The patient does not blink to visual threat. Corneal reflexes are absent. Oculocephalic reflexes are absent. Gag reflex is absent. Cough reflex is intact. There is no obvious facial asymmetry. Motor: There are no spontaneous, purposeful movements. Extremities are flaccid. There are myoclonic movements of the face/mouth. There is no observable decerebrate posturing Sensation: There is withdrawal of the right upper extremity from noxious stimulation. There is no withdrawal of the right lower, left upper or left lower extremities. Deep tendon reflexes: Absent throughout. Right plantar responses extensor with the left being flexor. Results - Laboratory Findings CBC and BMP: 12/14/20 04:05 12/14/20 11:25 Abnormal Lab Findings: Abnormal Labs 12/13/20 12/13/20 12/13/20 20:05 20:15 20:15 WBC RBC Hgb Hct RDW Neutrophils # Lymphocytes # D-Dimer ABG pH ABG pCO2 ABG pO2 ABG HCO3 ABG Total CO2 ABG O2 Saturation Sodium 116 L* Chloride 76 L Carbon Dioxide BUN 26 H Creatinine Glucose 314 H POC Glucose (mg/dL) 327 H Osmolality Plasma Lactic Acid Ramin 11.7 H* Calcium 7.5 L Magnesium 2.7 H AST 73 H ALT Total Protein 6.2 L Albumin TSH Free T4 Urine Protein Urine Blood 12/13/20 12/13/20 12/13/20 20:16 20:26 20:26 WBC 11.3 H RBC 3.40 L Hgb 10.2 L Hct 31.4 L RDW 18.0 H Neutrophils # 9.7 H Lymphocytes # D-Dimer 3.84 H ABG pH ABG pCO2 ABG pO2 ABG HCO3 ABG Total CO2 ABG O2 Saturation Sodium Chloride Carbon Dioxide BUN Creatinine Glucose POC Glucose (mg/dL) Osmolality Plasma Lactic Acid Ramin Calcium Magnesium AST ALT Total Protein Albumin TSH Free T4 Urine Protein 1+ H Urine Blood Trace H 12/13/20 12/14/20 12/14/20 20:35 01:32 04:05 WBC 14.3 H RBC 3.21 L Hgb 9.4 L Hct 28.5 L RDW 18.4 H Neutrophils # 13.2 H Lymphocytes # 0.3 L D-Dimer ABG pH 7.06 L* ABG pCO2 77 H* ABG pO2 133 H ABG HCO3 ABG Total CO2 ABG O2 Saturation Sodium Chloride Carbon Dioxide BUN Creatinine Glucose POC Glucose (mg/dL) 133 H Osmolality Plasma Lactic Acid Ramin Calcium Magnesium AST ALT Total Protein Albumin TSH Free T4 Urine Protein Urine Blood 12/14/20 12/14/20 12/14/20 04:05 04:05 04:57 WBC RBC Hgb Hct RDW Neutrophils # Lymphocytes # D-Dimer ABG pH ABG pCO2 55 H ABG pO2 ABG HCO3 33 H ABG Total CO2 34 H ABG O2 Saturation 98.7 H Sodium 120 L Chloride 85 L Carbon Dioxide 32 H BUN 24 H Creatinine 0.51 L Glucose 100 H POC Glucose (mg/dL) Osmolality 258 L Plasma Lactic Acid Ramin Calcium 6.3 L* Magnesium AST 174 H ALT 88 H Total Protein 5.8 L Albumin 3.3 L TSH 7.280 H Free T4 0.38 L Urine Protein Urine Blood 12/14/20 12/14/20 11:22 11:25 WBC RBC Hgb Hct RDW Neutrophils # Lymphocytes # D-Dimer ABG pH ABG pCO2 ABG pO2 ABG HCO3 ABG Total CO2 ABG O2 Saturation Sodium 123 L Chloride 84 L Carbon Dioxide 35 H BUN 22 H Creatinine 0.48 L Glucose 110 H POC Glucose (mg/dL) 113 H Osmolality Plasma Lactic Acid Ramin Calcium 7.0 L Magnesium AST ALT Total Protein Albumin TSH Free T4 Urine Protein Urine Blood Assessment and Plan Assessment: 1. Cardiac arrest with anoxic encephalopathy-prognosis guarded 2. 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 Reported alcohol abuse-possible withdrawal 4. History of laryngeal cancer Plan: 1. Agree with EEG-this will be done and interpreted today 2. May require antiepileptic medications 3. May consider MRI of the brain 4. Continue supportive care at this time 5. Dr. Scotty Bran will assume neurologic coverage of this patient Tuesday, December 15, 2020 Time with Patient: Greater than 30 (spent 40 minutes with patient via teleneurology)
--- NOTE | 2020-12-14 14:38 | P.HPIM ---
History of Present Illness 74-year-old male was admitted after a cardio pulmonary arrest and patient did is rate is presently on ventilator support patient is a tracheostomy secondary to his laryngeal cancer and patient the is being ventilated today through his tracheostomy at this time patient is presently receiving chemotherapy and her brain radiation therapy unsure whether this treatment is active artery whether his cancer is in remission. Patient is known to drink alcohol has been apparently doing that for fear few days and may have to stop drinking recently. Patient the had CPR for about 2024 minutes patient has a Dobbhoff U presently has an NG tube in place. Patient is not breathing over the ventilator patient does have cough reflex is not responsive to verbal or pain. When he was not a consideration presently on sedation at 20 mics of propofol. Patient is not on pressor support patient does have pupillary reflex doesn't have a gag reflex. Patient is 70% FiO2 PEEP of 5 tidal volume of 500 and the set up respiratory rate on assist-control ventilation at 322 and patient is not breathing over the ventilator. Patient was severely hyponatremic with a serum sodium of 149 patient which is improving at this time patient was also hypercalcemic appear to be severely dehydrated on admission. Patient was evaluated, and multiple consultants including nephrology for electrolyte abnormalities, crm analyst, neurologist at EEG is being obtained patient does have myoclonus because of which there is a concern for significant anoxic brain injury although CT of the head did not show significant encephalopathy. CT angios of the chest showed [id number] bilateral Flash studies in the left lower lobe, there is no consolidation and these findings may be related to the chest compressions. Review of Systems Unable to obtain due to his clinical condition Past Medical History Past Medical History: Cancer, COPD, Hyperlipidemia, Hypertension, Osteoarthritis (OA), Thyroid Disorder Additional Past Medical History / Comment(s): hx. throat cancer, chemo/radiation >1 year ago, recently re-started chemo-has had 2 tx's., will be re-starting radiation soon, cologard positive recently History of Any Multi-Drug Resistant Organisms: None Reported Past Surgical History: Orthopedic Surgery Additional Past Surgical History / Comment(s): right shoulder surgery, right lung resection @[facility] @beginning of year Past Anesthesia/Blood Transfusion Reactions: No Reported Reaction Additional Past Anesthesia/Blood Transfusion Reaction / Comment(s): no previous blood transfusion Past Psychological History: Anxiety, Schizophrenia Smoking Status: Unknown if ever smoked Past Alcohol Use History: Occasional Past Drug Use History: None Reported - Past Family History Mother Family Medical History: Deep Vein Thrombosis (DVT) Medications and Allergies Home Medications Medication Instructions Recorded Confirmed Type Simvastatin [Zocor] 20 mg PO HS 04/07/15 12/13/20 History amLODIPine [Norvasc] 10 mg PO DAILY 12/19/19 12/13/20 History lisinopriL [Prinivil] 5 mg PO DAILY 12/19/19 12/13/20 History ALPRAZolam [Xanax] 0.25 mg PO DAILY PRN 12/13/20 12/13/20 History HYDROcodone/APAP 5-325MG [[place] 1 tab PO Q4H PRN 12/13/20 12/13/20 History 5-325] Levothyroxine Sodium [Synthroid] 75 mcg PO DAILY 12/13/20 12/13/20 History OLANZapine [ZyPREXA] 15 mg PO HS 12/13/20 12/13/20 History Ondansetron [Zofran ODT] 4 mg PO Q8H PRN 12/13/20 12/13/20 History Sertraline [Zoloft] 50 mg PO HS 12/13/20 12/13/20 History Allergies Allergy/AdvReac Type Severity Reaction Status Date / Time No Known Allergies Allergy Verified 12/13/20 21:50 Physical Exam Vitals: Vital Signs Temp Pulse Pulse Resp BP Pulse Ox 12/14/20 13:00 98 17 147/86 98 12/14/20 12:00 92 22 153/90 100 12/14/20 11:00 94 21 161/92 99 12/14/20 10:00 96 25 H 148/88 97 12/14/20 09:00 92 23 117/80 98 12/14/20 08:00 89 23 121/78 98 12/14/20 07:00 87 19 110/78 100 12/14/20 06:00 88 26 H 122/78 99 12/14/20 05:00 88 25 H 121/74 94 L 12/14/20 04:00 98.2 F 84 19 108/66 95 12/14/20 03:00 80 16 105/69 99 12/14/20 02:00 84 24 112/67 99 12/14/20 01:50 97.8 F 84 24 116/69 100 12/14/20 01:40 86 26 H 100 12/14/20 01:30 89 23 99 12/14/20 01:25 85 26 H 100 12/14/20 01:03 81 82 H 108/74 99 12/13/20 23:00 84 24 108/75 100 12/13/20 22:00 70 25 H 101/68 100 12/13/20 21:30 76 26 H 107/70 100 12/13/20 21:15 79 23 113/75 100 12/13/20 21:00 77 24 135/85 99 12/13/20 20:44 96.9 F L 80 23 152/95 97 12/13/20 20:30 78 16 177/105 96 12/13/20 20:20 114 H 12/13/20 20:15 74 16 147/85 88 L 12/13/20 20:02 105 H 12 144/85 86 L Intake and Output 12/13/20 12/14/20 12/14/20 22:59 06:59 14:59 Intake Total 420 434.513 Output Total 900 880 550 Balance -900 -460 -115.487 Intake: IV 420 430 .9 @ 70 mL/hr 420 420 Sodium Chloride 0.45% 1, 10 000 ml @ 10 mls/hr IV . Q24H [facility] Rx#:[id number] Intake, IV Titration 4.513 Amount propofoL 1,000 mg In 4.513 Empty Bag 1 bag @ Titrate IV .Q0M [facility] Rx#: [id number] Output: Urine 900 880 550 Other: Voiding Method Indwelling Catheter Indwelling Catheter Weight 101.741 kg 98.1 kg PHYSICAL EXAMINATION: GENERAL: on ventilatory support and being ventilated via the tracheostomy patient has an NG tube in place Garcia catheter above mentioned ventilator settings. HEENT: Pupils are round and equally reacting to light. EOMI. No scleral icterus. No conjunctival pallor. Normocephalic, atraumatic. No pharyngeal erythema. No thyromegaly. CARDIOVASCULAR: S1 and S2 present. No murmurs, rubs, or gallops. PULMONARY: Bilateral rhonchi. ABDOMEN: Soft, nontender, nondistended, normoactive bowel sounds. No palpable organomegaly. MUSCULOSKELETAL: No joint swelling or deformity. EXTREMITIES: No cyanosis, clubbing, or pedal edema. NEUROLOGICAL: Patient is sedated SKIN: No rashes. Results CBC & Chem 7: 12/14/20 04:05 12/14/20 11:25 Labs: Abnormal Lab Results - Last 24 Hours (Table) 12/13/20 12/13/20 12/13/20 Range/Units 20:05 20:15 20:15 WBC (3.8-10.6) k/uL RBC (4.30-5.90) m/uL Hgb (13.0-17.5) gm/dL Hct (39.0-53.0) % RDW (11.5-15.5) % Neutrophils # (1.3-7.7) k/uL Lymphocytes # (1.0-4.8) k/uL D-Dimer (<0.60) mg/L FEU ABG pH (7.35-7.45) ABG pCO2 (35-45) mmHg ABG pO2 (83-108) mmHg ABG HCO3 (21-25) mmol/L ABG Total CO2 (19-24) mmol/L ABG O2 Saturation (94-97) % Sodium 116 L* (137-145) mmol/L Chloride 76 L (98-107) mmol/L Carbon Dioxide (22-30) mmol/L BUN 26 H (9-20) mg/dL Creatinine (0.66-1.25) mg/dL Glucose 314 H (74-99) mg/dL POC Glucose (mg/dL) 327 H (75-99) mg/dL Osmolality (280-301) mosm/kg Plasma Lactic Acid Ramin 11.7 H* (0.7-2.0) mmol/L Calcium 7.5 L (8.4-10.2) mg/dL Magnesium 2.7 H (1.6-2.3) mg/dL AST 73 H (17-59) U/L ALT (4-49) U/L Total Protein 6.2 L (6.3-8.2) g/dL Albumin (3.5-5.0) g/dL TSH (0.465-4.680) mIU/L Free T4 (0.78-2.19) ng/dL Urine Protein (Negative) Urine Blood (Negative) 12/13/20 12/13/20 12/13/20 Range/Units 20:16 20:26 20:26 WBC 11.3 H (3.8-10.6) k/uL RBC 3.40 L (4.30-5.90) m/uL Hgb 10.2 L (13.0-17.5) gm/dL Hct 31.4 L (39.0-53.0) % RDW 18.0 H (11.5-15.5) % Neutrophils # 9.7 H (1.3-7.7) k/uL Lymphocytes # (1.0-4.8) k/uL D-Dimer 3.84 H (<0.60) mg/L FEU ABG pH (7.35-7.45) ABG pCO2 (35-45) mmHg ABG pO2 (83-108) mmHg ABG HCO3 (21-25) mmol/L ABG Total CO2 (19-24) mmol/L ABG O2 Saturation (94-97) % Sodium (137-145) mmol/L Chloride (98-107) mmol/L Carbon Dioxide (22-30) mmol/L BUN (9-20) mg/dL Creatinine (0.66-1.25) mg/dL Glucose (74-99) mg/dL POC Glucose (mg/dL) (75-99) mg/dL Osmolality (280-301) mosm/kg Plasma Lactic Acid Ramin (0.7-2.0) mmol/L Calcium (8.4-10.2) mg/dL Magnesium (1.6-2.3) mg/dL AST (17-59) U/L ALT (4-49) U/L Total Protein (6.3-8.2) g/dL Albumin (3.5-5.0) g/dL TSH (0.465-4.680) mIU/L Free T4 (0.78-2.19) ng/dL Urine Protein 1+ H (Negative) Urine Blood Trace H (Negative) 12/13/20 12/14/20 12/14/20 Range/Units 20:35 01:32 04:05 WBC 14.3 H (3.8-10.6) k/uL RBC 3.21 L (4.30-5.90) m/uL Hgb 9.4 L (13.0-17.5) gm/dL Hct 28.5 L (39.0-53.0) % RDW 18.4 H (11.5-15.5) % Neutrophils # 13.2 H (1.3-7.7) k/uL Lymphocytes # 0.3 L (1.0-4.8) k/uL D-Dimer (<0.60) mg/L FEU ABG pH 7.06 L* (7.35-7.45) ABG pCO2 77 H* (35-45) mmHg ABG pO2 133 H (83-108) mmHg ABG HCO3 (21-25) mmol/L ABG Total CO2 (19-24) mmol/L ABG O2 Saturation (94-97) % Sodium (137-145) mmol/L Chloride (98-107) mmol/L Carbon Dioxide (22-30) mmol/L BUN (9-20) mg/dL Creatinine (0.66-1.25) mg/dL Glucose (74-99) mg/dL POC Glucose (mg/dL) 133 H (75-99) mg/dL Osmolality (280-301) mosm/kg Plasma Lactic Acid Ramin (0.7-2.0) mmol/L Calcium (8.4-10.2) mg/dL Magnesium (1.6-2.3) mg/dL AST (17-59) U/L ALT (4-49) U/L Total Protein (6.3-8.2) g/dL Albumin (3.5-5.0) g/dL TSH (0.465-4.680) mIU/L Free T4 (0.78-2.19) ng/dL Urine Protein (Negative) Urine Blood (Negative) 12/14/20 12/14/20 12/14/20 Range/Units 04:05 04:05 04:57 WBC (3.8-10.6) k/uL RBC (4.30-5.90) m/uL Hgb (13.0-17.5) gm/dL Hct (39.0-53.0) % RDW (11.5-15.5) % Neutrophils # (1.3-7.7) k/uL Lymphocytes # (1.0-4.8) k/uL D-Dimer (<0.60) mg/L FEU ABG pH (7.35-7.45) ABG pCO2 55 H (35-45) mmHg ABG pO2 (83-108) mmHg ABG HCO3 33 H (21-25) mmol/L ABG Total CO2 34 H (19-24) mmol/L ABG O2 Saturation 98.7 H (94-97) % Sodium 120 L (137-145) mmol/L Chloride 85 L (98-107) mmol/L Carbon Dioxide 32 H (22-30) mmol/L BUN 24 H (9-20) mg/dL Creatinine 0.51 L (0.66-1.25) mg/dL Glucose 100 H (74-99) mg/dL POC Glucose (mg/dL) (75-99) mg/dL Osmolality 258 L (280-301) mosm/kg Plasma Lactic Acid Ramin (0.7-2.0) mmol/L Calcium 6.3 L* (8.4-10.2) mg/dL Magnesium (1.6-2.3) mg/dL AST 174 H (17-59) U/L ALT 88 H (4-49) U/L Total Protein 5.8 L (6.3-8.2) g/dL Albumin 3.3 L (3.5-5.0) g/dL TSH 7.280 H (0.465-4.680) mIU/L Free T4 0.38 L (0.78-2.19) ng/dL Urine Protein (Negative) Urine Blood (Negative) 12/14/20 12/14/20 Range/Units 11:22 11:25 WBC (3.8-10.6) k/uL RBC (4.30-5.90) m/uL Hgb (13.0-17.5) gm/dL Hct (39.0-53.0) % RDW (11.5-15.5) % Neutrophils # (1.3-7.7) k/uL Lymphocytes # (1.0-4.8) k/uL D-Dimer (<0.60) mg/L FEU ABG pH (7.35-7.45) ABG pCO2 (35-45) mmHg ABG pO2 (83-108) mmHg ABG HCO3 (21-25) mmol/L ABG Total CO2 (19-24) mmol/L ABG O2 Saturation (94-97) % Sodium 123 L (137-145) mmol/L Chloride 84 L (98-107) mmol/L Carbon Dioxide 35 H (22-30) mmol/L BUN 22 H (9-20) mg/dL Creatinine 0.48 L (0.66-1.25) mg/dL Glucose 110 H (74-99) mg/dL POC Glucose (mg/dL) 113 H (75-99) mg/dL Osmolality (280-301) mosm/kg Plasma Lactic Acid Ramin (0.7-2.0) mmol/L Calcium 7.0 L (8.4-10.2) mg/dL Magnesium (1.6-2.3) mg/dL AST (17-59) U/L ALT (4-49) U/L Total Protein (6.3-8.2) g/dL Albumin (3.5-5.0) g/dL TSH (0.465-4.680) mIU/L Free T4 (0.78-2.19) ng/dL Urine Protein (Negative) Urine Blood (Negative) Microbiology - Last 24 Hours (Table) 12/14/20 09:40 Gram Stain - Preliminary Sputum Sputum Culture - Preliminary Assessment and Plan Plan: Pulmonary pulmonary arrest: Etiology of cardio pulmonary arrest is not clear. Patient is presently admitted to support -Acute hypoxic respiratory failure secondary chills cardio pulmonary arrest patient is on ventilator support on the with the above-mentioned vent settings -Possible significant anoxic brain injury leading to myoclonus -History of laryngeal carcinoma is on radiation therapy and chemotherapy -History of alcohol use and heavy tobacco use -COPD with possible mild acute exacerbation -Hyperlipidemia -Hypertension -Hypothyroidism : patient has elevated TSH and low T4 we'll increase the levothyroxine dose -Severe hyponatremia: Most probably secondary to alcoholism, dehydration patient is receiving IV normal saline severe hyponatremia along with alcohol withdrawal may have led to seizure which in turn may have led to cardiopulmonary arrest -Acute alcoholic hepatitis -Hypocalcemia calcium was replaced. -DVT prophylaxis with subcutaneous heparin
[2020-12-14 14:42] VITALS: TEMP 98.6
[2020-12-14] MEDS ORDERED: NOREPINEPHRIN 4 MG-0.9% NS PMX 4 MG/250 ML ML IV ONE (15:40)
[2020-12-14] MEDS: IPRATROPIUM-ALBUTEROL 3 ML NEB INHALATION SCH ×2 (16:29→20:14)
[2020-12-14] MEDS ORDERED: NOREPINEPHRINE 4 MG in SODIUM CHLORIDE 0.9% 250 ML IV SCH (16:30)
[2020-12-14 16:33] LABS: African American GFR (CKD) >90 (>60 ml/min/1.73 sqM); Anion Gap 4 mmol/L; Blood Urea Nitrogen 20 mg/dL (9-20); Calcium 6.7 mg/dL (8.4-10.2); Carbon Dioxide 34 mmol/L (22-30); Chloride 86 mmol/L (98-107); Glucose 97 mg/dL (74-99); Non-African American GFR(CKD) >90 (>60 ml/min/1.73 sqM); Potassium 3.3 mmol/L (3.5-5.1); Sodium 124 mmol/L (137-145)
--- NOTE | 2020-12-14 17:30 | P.CRDCN ---
History of Present Illness History of present illness: HISTORY OF PRESENTING ILLNESS This is a pleasant 64-year-old male past medical history significant for laryngeal cancer status post laryngectomy in August 2020, COPD, hypertension, tracheostomy. Patient intubated and unresponsive on ventilator and therefore history is supplied by chart. Patient apparently was found at home without pulse and EMS was called. Patient had been down for approximately 10 minutes and then EMS performed another 5-10 minutes of CPR with [place]. He did have a Dobbhoff placed 1 week ago for nutrition. Per chart no complaints of chest pain or pressure prior to the cardiac arrest and no history of CAD. Patient was placed on a ventilator however patient has not had much of any meaningful neurologic recovery. Per nursing he has been breathing over the ventilator and therefore sedation with propofol has been use. DIAGNOSTICS EKG reveals atrial rhythm at 84 bpm, left axis deviation, left anterior fascicular block. Chest xray NG tube noted, there may be a perihilar pneumonia, edema. Chest CTA shows no acute PE within the limitations of the study, scattered small to moderate bilateral opacities within the left upper lobe consideration could include aspiration, chronic rib fractures. Laboratory reviewed, blood cell count 14.3, hemoglobin 9.4, platelets 243, sodium 120, initially 116, creatinine 0.51, AST 174, ALT 88, TSH 7.3, albumin 3.3, free T4 0.38, troponin 0.027, proBNP 2520, d-dimer 3.84. Current cardiac medications include lisinopril 5 mg daily, norepinephrine drip. REVIEW OF SYSTEMS At the time of my exam: Unable to obtain secondary to unresponsive on ventilator PHYSICAL EXAMINATION Blood pressure 129/87 heart rate 92 afebrile and maintaining oxygen saturation on ventilator with FiO2 at 100%. CONSTITUTIONAL: No apparent distress, sedated and unresponsive on ventilator, chronically ill-appearing HEENT: Head is normocephalic. Pupils are equal, round. Sclerae anicteric. + Tracheostomy. CHEST EXAMINATION: Coarse breath sounds bilaterally HEART EXAMINATION: Regular rate and rhythm. S1, S2 heard. No murmurs, gallops or rub. ABDOMEN: Soft, nontender. Positive bowel sounds. EXTREMITIES: 2+ peripheral pulses, no lower extremity edema and no calf tenderness. NEUROLOGIC EXAMINATION: Patient is sedated and unresponsive on ventilator ASSESSMENT 1. Cardio pulmonary arrest, suspect mainly pulmonary and possible aspiration with patient having a tracheostomy and Dobbhoff with tube feedings 2. Acute hypoxic respiratory failure 3. Altered mental status status post code 4. Essential hypertension 5. Hyponatremia 6. Reported alcohol abuse 7. History of blurring go cancer status post radiation and chemotherapy 8. History of COPD 9. Elevated proBNP, possibly elevated secondary to CPR, cardiopulmonary arrest PLAN Patient cardio pulmonary arrest and downtime approximate 20 minutes. So far patient does not appear to have significant neurologic recovery. Patient's prior pulmonary arrest appears mainly related to pulmonary source. We will check a 2-D echo. Further recommendations pending. Supportive care. Past Medical History Past Medical History: Cancer, COPD, Hyperlipidemia, Hypertension, Osteoarthritis (OA), Thyroid Disorder Additional Past Medical History / Comment(s): hx. throat cancer, chemo/radiation >1 year ago, recently re-started chemo-has had 2 tx's., will be re-starting radiation soon, cologard positive recently History of Any Multi-Drug Resistant Organisms: None Reported Past Surgical History: Orthopedic Surgery Additional Past Surgical History / Comment(s): right shoulder surgery, right lung resection @[facility] @beginning of year Past Anesthesia/Blood Transfusion Reactions: No Reported Reaction Additional Past Anesthesia/Blood Transfusion Reaction / Comment(s): no previous blood transfusion Past Psychological History: Anxiety, Schizophrenia Smoking Status: Unknown if ever smoked Past Alcohol Use History: Occasional Past Drug Use History: None Reported - Past Family History Mother Family Medical History: Deep Vein Thrombosis (DVT) Medications and Allergies Home Medications Medication Instructions Recorded Confirmed Type Simvastatin [Zocor] 20 mg PO HS 04/07/15 12/13/20 History amLODIPine [Norvasc] 10 mg PO DAILY 12/19/19 12/13/20 History lisinopriL [Prinivil] 5 mg PO DAILY 12/19/19 12/13/20 History ALPRAZolam [Xanax] 0.25 mg PO DAILY PRN 12/13/20 12/13/20 History HYDROcodone/APAP 5-325MG [[place] 1 tab PO Q4H PRN 12/13/20 12/13/20 History 5-325] Levothyroxine Sodium [Synthroid] 75 mcg PO DAILY 12/13/20 12/13/20 History OLANZapine [ZyPREXA] 15 mg PO HS 12/13/20 12/13/20 History Ondansetron [Zofran ODT] 4 mg PO Q8H PRN 12/13/20 12/13/20 History Sertraline [Zoloft] 50 mg PO HS 12/13/20 12/13/20 History Allergies Allergy/AdvReac Type Severity Reaction Status Date / Time No Known Allergies Allergy Verified 12/13/20 21:50 Physical Exam Vitals: Vital Signs Temp Pulse Pulse Resp BP Pulse Ox 12/14/20 17:00 92 18 129/87 100 12/14/20 16:00 98 22 121/89 100 12/14/20 15:00 114 H 22 149/95 90 L 12/14/20 14:00 98.6 F 117 H 22 165/95 98 12/14/20 13:00 98 17 147/86 98 12/14/20 12:00 92 22 153/90 100 12/14/20 11:00 94 21 161/92 99 12/14/20 10:00 96 25 H 148/88 97 12/14/20 09:00 92 23 117/80 98 12/14/20 08:00 89 23 121/78 98 12/14/20 07:00 87 19 110/78 100 12/14/20 06:00 88 26 H 122/78 99 12/14/20 05:00 88 25 H 121/74 94 L 12/14/20 04:00 98.2 F 84 19 108/66 95 12/14/20 03:00 80 16 105/69 99 12/14/20 02:00 84 24 112/67 99 12/14/20 01:50 97.8 F 84 24 116/69 100 12/14/20 01:40 86 26 H 100 12/14/20 01:30 89 23 99 12/14/20 01:25 85 26 H 100 12/14/20 01:03 81 82 H 108/74 99 12/13/20 23:00 84 24 108/75 100 12/13/20 22:00 70 25 H 101/68 100 12/13/20 21:30 76 26 H 107/70 100 12/13/20 21:15 79 23 113/75 100 12/13/20 21:00 77 24 135/85 99 12/13/20 20:44 96.9 F L 80 23 152/95 97 12/13/20 20:30 78 16 177/105 96 12/13/20 20:20 114 H 12/13/20 20:15 74 16 147/85 88 L 12/13/20 20:02 105 H 12 144/85 86 L Intake and Output 12/14/20 12/14/20 12/14/20 06:59 14:59 22:59 Intake Total 420 444.513 20 Output Total 880 650 200 Balance -460 -205.487 -180 Intake: IV 420 440 20 .9 @ 70 mL/hr 420 420 Sodium Chloride 0.45% 1, 20 20 000 ml @ 10 mls/hr IV . Q24H ONE Rx#:[id number] Intake, IV Titration 4.513 Amount propofoL 1,000 mg In 4.513 Empty Bag 1 bag @ Titrate IV .Q0M [facility] Rx#: [id number] Output: Urine 880 650 200 Other: Voiding Method Indwelling Catheter Indwelling Catheter Indwelling Catheter Weight 98.1 kg Results 12/14/20 04:05 12/14/20 16:03 Cardiac Enzymes 12/13/20 12/13/20 12/14/20 Range/Units 20:15 20:15 04:05 AST 73 H 174 H (17-59) U/L Troponin I 0.027 (0.000-0.034) ng/mL Coagulation 12/13/20 Range/Units 20:26 PT 10.2 (9.0-12.0) sec APTT 29.8 (22.0-30.0) sec CBC 12/13/20 12/14/20 Range/Units 20:16 04:05 WBC 11.3 H 14.3 H (3.8-10.6) k/uL RBC 3.40 L 3.21 L (4.30-5.90) m/uL Hgb 10.2 L 9.4 L (13.0-17.5) gm/dL Hct 31.4 L 28.5 L (39.0-53.0) % Plt Count 259 243 (150-450) k/uL Comprehensive Metabolic Panel 12/13/20 12/14/20 12/14/20 Range/Units 20:15 04:05 11:25 Sodium 116 L* 120 L 123 L (137-145) mmol/L Potassium 4.8 3.6 3.6 (3.5-5.1) mmol/L Chloride 76 L 85 L 84 L (98-107) mmol/L Carbon Dioxide 24 32 H 35 H (22-30) mmol/L BUN 26 H 24 H 22 H (9-20) mg/dL Creatinine 0.69 0.51 L 0.48 L (0.66-1.25) mg/dL Glucose 314 H 100 H 110 H (74-99) mg/dL Calcium 7.5 L 6.3 L* 7.0 L (8.4-10.2) mg/dL AST 73 H 174 H (17-59) U/L ALT 43 88 H (4-49) U/L Alkaline Phosphatase 102 100 (38-126) U/L Total Protein 6.2 L 5.8 L (6.3-8.2) g/dL Albumin 3.8 3.3 L (3.5-5.0) g/dL 12/14/20 Range/Units 16:03 Sodium 124 L (137-145) mmol/L Potassium 3.3 L (3.5-5.1) mmol/L Chloride 86 L (98-107) mmol/L Carbon Dioxide 34 H (22-30) mmol/L BUN 20 (9-20) mg/dL Creatinine 0.53 L (0.66-1.25) mg/dL Glucose 97 (74-99) mg/dL Calcium 6.7 L (8.4-10.2) mg/dL AST (17-59) U/L ALT (4-49) U/L Alkaline Phosphatase (38-126) U/L Total Protein (6.3-8.2) g/dL Albumin (3.5-5.0) g/dL Current Medications Generic Name Dose Route Start Last Admin Trade Name Freq PRN Reason Stop Dose Admin Albuterol/Ipratropium 3 ml 12/14/20 16:00 12/14/20 16:29 Ipratropium-Albuterol 3 Ml Neb INHALATION Not Given RT-Q4H CRYS Chlorhexidine Gluconate 15 ml 12/14/20 09:00 12/14/20 08:37 Chlorhexidine Gluconate 15 Ml Cup MUCOUS MEM 15 ml BID CRYS Administration Piperacillin Sod/Tazobactam 100 mls @ 25 mls/hr 12/14/20 09:00 12/14/20 09:43 Sod 3.375 gm/ Sodium Chloride IVPB 25 mls/hr Q8HR [facility] Administration Sodium Chloride 1,000 mls @ 10 mls/hr 12/14/20 13:18 12/14/20 13:30 Saline 0.45% IV 12/15/20 13:17 10 mls/hr .Q24H ONE Administration Norepinephrine Bitartrate 4 mg 254 mls @ 18.688 mls/hr 12/14/20 16:30 12/14/20 16:30 / Sodium Chloride IV 0.05 mcg/kg/min .[id number] CRYS 18.688 mls/hr Administration Protocol 0.05 MCG/KG/MIN Levothyroxine Sodium 100 mcg 12/15/20 06:30 Levothyroxine 100 Mcg [place] PO 0630 [facility] Lisinopril 5 mg 12/14/20 13:30 12/14/20 13:32 Lisinopril 5 Mg Tab PO 5 mg DAILY [facility] Administration Naloxone HCl 0.2 mg 12/13/20 23:03 Naloxone 0.4 Mg/Ml 1 Ml Vial IV Q2M PRN Opioid Reversal Pantoprazole Sodium 40 mg 12/14/20 09:00 12/14/20 08:38 Pantoprazole 40 Mg/10 Ml Vial IVP 40 mg BID CRYS Administration Intake and Output 12/14/20 12/14/20 12/14/20 06:59 14:59 22:59 Intake Total 420 444.513 20 Output Total 880 650 200 Balance -460 -205.487 -180 Intake: IV 420 440 20 .9 @ 70 mL/hr 420 420 Sodium Chloride 0.45% 1, 20 20 000 ml @ 10 mls/hr IV . Q24H ONE Rx#:[id number] Intake, IV Titration 4.513 Amount propofoL 1,000 mg In 4.513 Empty Bag 1 bag @ Titrate IV .Q0M [facility] Rx#: [id number] Output: Urine 880 650 200 Other: Voiding Method Indwelling Catheter Indwelling Catheter Indwelling Catheter Weight 98.1 kg 12/14/20 04:05 12/14/20 16:03
[2020-12-14] MEDS: MORPHINE SULFATE 4 MG/ML SYRINGE IV PRN ×2 (18:03→18:19)
[2020-12-14 18:09] VITALS: BP 118/82
[2020-12-14 19:12] VITALS: PULSE 0; RESP 0
[2020-12-15] MEDS ORDERED: LEVOTHYROXINE 100 MCG TAB PO SCH (06:30)
[2020-12-15] MEDS ORDERED: VANCOMYCIN TROUGH DUE 1 EACH MISC MISCELLANE ONE (09:00)
--- NOTE | 2020-12-15 11:34 | P.DS ---
Providers Date of admission: 12/13/20 23:03 Expected date of discharge: 12/14/20 Attending physician: Landen Weston Consults: 12/13/20 23:03 Consult Physician Stat Consulting Provider: Amaury Bran Consult Reason/Comments: acute cardiopulmonary arrest, hx laryngectomy with trach placement Do you want consulting provider notified?: Already Contacted Consult Physician Urgent Consulting Provider: Yaakov Rodriguez Consult Reason/Comments: acute cardiopulmonary arrest Do you want consulting provider notified?: Already Contacted Consult Physician Urgent Consulting Provider: Josh Wayne Consult Reason/Comments: acute hyponatremia Do you want consulting provider notified?: Already Contacted 12/14/20 10:08 Consult Physician Routine Consulting Provider: Scotty Bran Consult Reason/Comments: Cardiac arrest Do you want consulting provider notified?: Already Contacted Primary care physician: Jonathan Gifford [facility] Course: 64-year-old male was admitted after cardiopulmonary arrest and patient appears to have had significant anoxic brain injury. Later in the day patient course status was changed no cord patient was on ventilatory support at that time. P atient around 1715 on the 12/14/2020. Patient Condition at Discharge: Critical Plan - Discharge Summary New Discharge Prescriptions: No Action Simvastatin [Zocor] 20 mg PO HS amLODIPine [Norvasc] 10 mg PO DAILY lisinopriL [Prinivil] 5 mg PO DAILY Ondansetron [Zofran ODT] 4 mg PO Q8H PRN PRN Reason: Nausea And Vomiting HYDROcodone/APAP 5-325MG [[place] 5-325] 1 tab PO Q4H PRN PRN Reason: Pain ALPRAZolam [Xanax] 0.25 mg PO DAILY PRN PRN Reason: Anxiety Sertraline [Zoloft] 50 mg PO HS OLANZapine [ZyPREXA] 15 mg PO HS Levothyroxine Sodium [Synthroid] 75 mcg PO DAILY Discharge Medication List Simvastatin [Zocor] 20 mg PO HS 04/07/15 [History] amLODIPine [Norvasc] 10 mg PO DAILY 12/19/19 [History] lisinopriL [Prinivil] 5 mg PO DAILY 12/19/19 [History] ALPRAZolam [Xanax] 0.25 mg PO DAILY PRN 12/13/20 [History] HYDROcodone/APAP 5-325MG [[place] 5-325] 1 tab PO Q4H PRN 12/13/20 [History] Levothyroxine Sodium [Synthroid] 75 mcg PO DAILY 12/13/20 [History] OLANZapine [ZyPREXA] 15 mg PO HS 12/13/20 [History] Ondansetron [Zofran ODT] 4 mg PO Q8H PRN 12/13/20 [History] Sertraline [Zoloft] 50 mg PO HS 12/13/20 [History] Follow up Appointment(s)/Referral(s): Jomar Gibbs MD [REFERRING] - 1-2 days Discharge Disposition: - Preliminary Cause of Preliminary Cause of : Cardiopulmonary arrest possibly secondary to an alcohol withdrawal seizure
== END 2020-12-14 20:47 | disposition expired | DRG 896 ==
LOC: EC 20:00 → 2SICU 23:03
PROVIDERS: ADMIT Internal Medicine; ATTEND Internal Medicine
PROC: 02HV33Z Insertion of Infusion Device into Superior Vena Cava, Percutaneous Approach (ICD-10-PCS; principal; 2020-12-13)
PROC: 0D9670Z Drainage of Stomach with Drainage Device, Via Natural or Artificial Opening (ICD-10-PCS; principal; 2020-12-13)
PROC: 5A1935Z Respiratory Ventilation, Less than 24 Consecutive Hours (ICD-10-PCS; principal; 2020-12-13)
PROC: 0BH17EZ Insertion of Endotracheal Airway into Trachea, Via Natural or Artificial Opening (ICD-10-PCS; principal; 2020-12-13)
DX: F10.239 Alcohol dependence with withdrawal, unspecified (principal); J96.01 Acute respiratory failure with hypoxia; J96.02 Acute respiratory failure with hypercapnia; J69.0 Pneumonitis due to inhalation of food and vomit; G40.89 Other seizures; E87.1 Hypo-osmolality and hyponatremia; E87.2 Acidosis; G93.1 Anoxic brain damage, not elsewhere classified; J44.1 Chronic obstructive pulmonary disease with (acute) exacerbation; M84.48XA Pathological fracture, other site, initial encounter for fracture; E83.51 Hypocalcemia; Z93.0 Tracheostomy status; I46.8 Cardiac arrest due to other underlying condition; C32.9 Malignant neoplasm of larynx, unspecified; K70.10 Alcoholic hepatitis without ascites; Z66 Do not resuscitate; Z20.822 Contact with and (suspected) exposure to COVID-19; E03.9 Hypothyroidism, unspecified; E78.5 Hyperlipidemia, unspecified; E86.0 Dehydration; E86.1 Hypovolemia; E87.6 Hypokalemia; F20.9 Schizophrenia, unspecified; F41.9 Anxiety disorder, unspecified; I10 Essential (primary) hypertension; I44.4 Left anterior fascicular block; R63.3 Feeding difficulties; Z91.81 History of falling; Z79.890 Hormone replacement therapy; Z79.899 Other long term (current) drug therapy; Z87.891 Personal history of nicotine dependence; Z92.21 Personal history of antineoplastic chemotherapy; Z97.8 Presence of other specified devices; Z92.3 Personal history of irradiation; Z83.2 Family history of diseases of the blood and blood-forming organs and certain disorders involving the immune mechanism; R19.5 Other fecal abnormalities; M19.90 Unspecified osteoarthritis, unspecified site; Z90.2 Acquired absence of lung [part of]; Z90.02 Acquired absence of larynx
CPT/HCPCS: 36415; 36600; 70450; 70491; 71045; 71275; 80048; 80053; 80306; 81001; 82805; 83605; 83735; 83880; 83930; 83935; 84300; 84439; 84443; 84484; 85025; 85379; 85610; 85730; 87040; 87070; 87205; 87635; 93005; 94002; 94003; 96361; 96365; 96368; 96375; 99285